=== PATIENT | female | born 1930 | race Caucasian/White ===

== ENCOUNTER → 2016-04-18 | Outpatient (REF) | payer MEDICARE, MEDICAID ==
[~2016-04-18] MED LIST: /AMLO25TA PO; /BISO10TA PO; ACET50TA PO; ALEN70SO PO; AMLO5TAB2 PO; ANTI25TA PO; ASPI1TAB PO; BISO10TA6 PO; CALC600T21 PO; CLAR10CA3 PO; CLAR1TAB2 PO; DIOV160T6 PO; ERGO5000 PO; FOSA70TA PO; GABA100C PO; LASI40TA; LEVA500T PO; LIDO5DIS TOP; LIDO5DIS36 TD; MECL-68 PO; MELO7.5S PO; MELO7.5T3 PO; MELO7.5T6 PO; MULTIVIT PO; NITR PO; NYST10PW TOP; OYST500T76 PO; PANT40TA2 PO; PARO20TA2 PO; PARO30TA PO; PLAV75TA2 PO; POTA10CA2; PRAV40TA; PRIL20CA; SKEL800T5; TYLE650T30 PO; VALS80CA PO; VITA-130 PO; VITA500T PO; VITAMIN D50000 UNT; [UNRECOGNIZED DRUG - CODE] PO
== END ==
LOC: M LAB REF 13:50
PROVIDERS: ATTEND Nurse Practitioner Family
DX: R19.7 Diarrhea, unspecified (principal)

== ENCOUNTER → 2016-05-19 | Outpatient (REF) | payer MEDICARE, MEDICAID ==
[~2016-05-19] MED LIST changes: -ERGO5000 PO; +ERGO500014 PO
== END ==
LOC: M LAB REF 13:30
PROVIDERS: ATTEND Nurse Practitioner Family
DX: R10.9 Unspecified abdominal pain (principal)

== ENCOUNTER → 2016-05-30 | Outpatient (REF) | payer MEDICARE, MEDICAID ==
[2016-06-03 00:06] LABS: ENDOMYSIAL ABY IgA Negative (Negative)
== END ==
LOC: M LAB REF 16:18
PROVIDERS: ATTEND Internal Medicine
DX: R10.9 Unspecified abdominal pain (principal); R19.7 Diarrhea, unspecified

== ENCOUNTER → 2016-09-17 | Outpatient (REF) | payer MEDICARE, MEDICAID ==
[2016-09-17 19:14] LABS: AMYLASE 42 U/L (25-115)
[2016-09-18 10:57] LABS: CONTROL LINE HPYORI INT CTR LINE PRESENT
[2016-09-20 00:06] LABS: ENDOMYSIAL ABY IgA Negative (Negative)
== END ==
LOC: M LAB REF 16:52
PROVIDERS: ATTEND Nurse Practitioner Family
DX: R10.9 Unspecified abdominal pain (principal)

== ENCOUNTER 2016-10-28 22:18 | Inpatient (IN) | payer OTHER, MEDICAID, MEDICARE ==
[~2016-10-28] VITALS: Ht 152.4 cm; Wt 58.4 kg
[~2016-10-28 22:18] MED LIST changes: -CALC600T21 PO; +CALC600T60 PO; +LEVA1TAB2 PO; -LEVA500T PO; -LIDO5DIS36 TD; +LIDO5DIS41 TD; -MELO7.5T6 PO; +MELO7.5T7 PO; -VITA-130 PO
[2016-10-28] MEDS ORDERED: NS 1,000 ML IV SCH (22:29)
[2016-10-28 22:50] LABS: BASO % 0.2 % (0.0-1.0); EOS # 0.1 K/mm3 (0.0-0.50); LARGE UNSTAINED CELL # 0.2 K/mm3 (0.0-0.4); LARGE UNSTAINED CELL % 1.3 % (0.0-4.0); LYMPH # 1.5 K/mm3 (1.5-4.5); LYMPH % 10.6 % (24.0-44.0); MEAN CORPUSCULAR HEMOGLOBIN 29.4 pg (27.0-33.0); MEAN CORPUSCULAR HGB CONC 34.3 g/dl (32.0-36.5); MEAN CORPUSCULAR VOLUME 85.6 fl (80.0-96.0); MONO # 0.5 K/mm3 (0.0-0.8); MONO % 3.9 % (0.0-5.0); NEUTROPHILS # 10.5 K/mm3 (1.8-7.7); PLATELET COUNT, AUTOMATED 249 k/mm3 (150-450); RED CELL DISTRIBUTION WIDTH 13.4 % (11.5-14.5); WHITE BLOOD COUNT 12.6 K/mm3 (4.0-10.0)
[2016-10-28] MEDS ORDERED: LABETALOL HCL 100 MG/20 ML VIAL IV STA (22:50)
[2016-10-28 23:06] LABS: MICROSCOPIC INDICATED? MAN YES (NO)
[2016-10-28 23:13] LABS: MICROSCOPIC EXAM PERFORMED
[2016-10-28 23:14] LABS: RBC, URINE 20-30 /hpf (0-3); WBC, URINE TNTC /hpf (0-3)
[2016-10-28 23:14] LABS: ALBUMIN 3.6 GM/DL (3.2-5.2); ALBUMIN/GLOBULIN RATIO 1.03 (1.00-1.93); ALKALINE PHOSPHATASE 71 U/L (45-117); ALT/SGPT 17 U/L (12-78); ANION GAP 9 MEQ/L (8-16); AST/SGOT 28 U/L (15-37); BILIRUBIN,DIRECT 0.1 MG/DL (0.0-0.2); BILIRUBIN,TOTAL 0.6 MG/DL (0.2-1.0); BLOOD UREA NITROGEN 25 MG/DL (7-18); CALCIUM LEVEL 9.3 MG/DL (8.8-10.2); CARBON DIOXIDE LEVEL 21 MEQ/L (21-32); CHLORIDE LEVEL 106 MEQ/L (98-107); CREATININE FOR GFR 1.26 MG/DL (0.55-1.02); GLOMERULAR FILTRATION RATE 42.8 (>32); GLUCOSE, FASTING 109 MG/DL (83-110); POTASSIUM SERUM 4.5 MEQ/L (3.5-5.1); SODIUM LEVEL 136 MEQ/L (136-145); TOTAL PROTEIN 7.1 GM/DL (6.4-8.2)
[2016-10-28 23:15] LABS: BACTERIA, URINE MOD AMOUNT; HYALINE CAST, URINE NONE SEEN /lpf (0-1); SQUAMOUS EPITHELIAL CELL URINE SMALL AMOUNT /hpf (SMALL AMT)
--- NOTE | 2016-10-28 23:20 | REPUSA ---
CT of the head Clinical history: altered mental status. Comparison: 11/17/2014. Protocol: Multiple axial CT images obtained with 5 mm slice thickness were obtained through the head without administration of contrast. Findings: The ventricles and sulci are symmetric but prominent in size bilaterally. There are periven tricular areas of low attenuation throughout the deep white matter. There is no evidence of acute hem orrhage or infarct. There is no midline shift, mass effect, or extra-axial fluid collection. The osse ous structures are unremarkable. The visualized paranasal sinuses and mastoid air cells are clear. Impression: No acute hemorrhage or infarct. 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
[2016-10-29] MEDS ORDERED: CIPROFLOXACIN 400 MG in APPROPRIATE DILUENT 1 EA IV ONE ×2
[2016-10-29] MEDS ORDERED: ACETAMINOPHEN TAB 650MG DOSE (2X325MG) PO PRN (00:15)
[2016-10-29] MEDS ORDERED: IBUPOTC PO (00:40)
[2016-10-29] MEDS ORDERED: MIRT15TA3 PO (00:40)
[2016-10-29] MEDS ORDERED: TYLE650T35 PO (00:40)
[2016-10-29] MEDS ORDERED: KLOR1CAP2 PO (00:40)
[2016-10-29] MEDS ORDERED: VALS1TAB46 PO (00:40)
[2016-10-29] MEDS ORDERED: BIOT10008 PO (00:40)
[2016-10-29] MEDS ORDERED: ASPI81CH PO (00:40)
[2016-10-29] MEDS ORDERED: CALCTAB68 PO (00:40)
[2016-10-29] MEDS ORDERED: VITMTA PO (00:40)
[2016-10-29 00:55] VITALS: BP 114/77
--- NOTE | 2016-10-29 01:29 | REP ---
Clinical: Altered mental status. Comparison: 11/20/2014. Findings: Opacity at the left lung base suggests infiltrate and/or small effusion. Remainder of lung bull are well-aerated and clear. No pneumothorax. Mediastinum and cardiac silhouette normal. Skeletal structures demonstrate age-related degenerative changes. Impression: Left lower lobe infiltrate and/or effusion. Signed by Nemesio Felder MD 10/29/2016 01:20 A
[2016-10-29] MEDS: NS 1,000 ML IV SCH ×2 (01:53→15:57)
[2016-10-29] MEDS: cefTRIAXone SOD 1 GM in D5W MINI-BAG PLUS 50 ML IV SCH (01:54)
[2016-10-29] MEDS: HEPARIN SOD (PORCINE) 5000 UNITS/ML VIAL SC SCH ×3 (05:13→21:24)
--- NOTE | 2016-10-29 05:31 | HPE ---
DATE OF ADMISSION: 10/29/2016 PRIMARY CARE PROVIDER: Dr. Helga Nava ATTENDING PHYSICIAN: Dr. Andres CHIEF COMPLAINT: Confusion. HISTORY OF PRESENT ILLNESS: The patient is an 86-year-old white female with several medical conditions listed below came to the emergency room (ER) for evaluation of confusion. She is a poor historian. The history is provided by her daughter who is with her in the ER. Per her daughter, 3 weeks ago, she saw her primary care provider and was given Levaquin for a urinary tract infection. She totally took10 days of Levaquin and finished it recently. This evening she was found very confused and the family decided to bring her the hospital for further evaluation. No fever. No chills. No diarrhea or dysuria. In the ER, she had a negative head CT scan. Her urinalysis had increased numerous white blood cells and also her blood tests indicated she has mild leukocytosis. Medicine service called for admission. REVIEW OF SYSTEMS: Denies fever. No chills. No headache. No blurry vision. No shortness of breath. No chest pain. No diarrhea. The family states the patient had some chronic abdominal pain, which is mild and denies any tingling, numbness or weakness in the arms or lower extremities. All other systems reviewed, but negative. PAST MEDICAL HISTORY: 1. Hypertension. 2. Dyslipidemia. 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 4. Depression. 5. Acid reflux. 6. Chronic low back pain. PAST SURGICAL HISTORY: 1. Hysterectomy. 2. Appendectomy. 3. Bilateral knee replacement. 4. Cholecystectomy. ALLERGIES: Allergic to ASPIRIN, DEMEROL, MORPHINE, SOMA, CODEINE, INTRAVENOUS (IV) DYE, KEFLEX, MILK OF MAGNESIA, BACTRIM. FAMILY HISTORY: No family history of carotid disease. No stroke. SOCIAL HISTORY: No alcohol abuse. No tobacco use. No illicit drug abuse. She lives by herself, and she is DO NOT RESUSCITATE, DO NOT INTUBATE. MEDICATIONS: - paroxetine 30 mg by mouth daily - amlodipine 5 mg by mouth daily - Claritin 10 mg by mouth daily - Diovan 160 mg by mouth daily - lidocaine patch every 12 hours PHYSICAL EXAMINATION: VITAL SIGNS: Temperature is 98.7. Heart rate 73. Respiratory rate 18. Blood pressure 155/67. Oxygen saturation is 97% on room air. GENERAL: She is awake, alert, oriented to place and people but not time. HEENT: Atraumatic. Pupils equal round and react to light. No jaundice. Ears, nose and throat normal. Mouth: Mucous moist. LUNGS: Clear. No wheezing. No crackles. HEART: S1, S2. Regular. No murmur. ABDOMEN: Soft. Bowel sounds positive. Mild tenderness but no rebound. LOWER EXTREMITIES: No edema in bilateral lower extremities. SKIN: No rash. NEUROLOGIC: Nonfocal. PSYCHOLOGICAL: No acute psychosis. DIAGNOSTIC AND LABORATORY STUDIES: (Include the following.) CBC with differential: WBC 12.6, hemoglobin and hematocrit 12.2/35.6, and platelets 249, Sodium 136, potassium 4.5, BUN 9, creatinine 1.26, and glucose is 109. UA showed numerous white blood cells. Chest x-ray is unremarkable. Head CT unremarkable. IMPRESSION: 1. Altered mental status likely due to metabolic encephalopathy, which is mild. 2. Urinary tract infection. 3. History of hypertension. 4. History of dyslipidemia. 5. History of chronic low back pain. PLAN: Patient will be admitted to medicine floor. I will treat her with gentle IV hydration plus IV ceftriaxone. We will followup blood cultures and urine cultures. We will continue her most regular home medications. Per the daughter , patient has chronic abdominal pain, which she planned to be referred to see Dr. Cooper for possible colonoscopy as outpatient. We will start her on heparin subcutaneous for deep venous thrombosis (DVT) prophylaxis. MANI
[2016-10-29 06:00] VITALS: BP 175/72
[2016-10-29 07:03] LABS: BASO % 0.1 % (0.0-1.0); EOS % 0.4 % (0.0-3.0); LARGE UNSTAINED CELL # 0.2 K/mm3 (0.0-0.4); LARGE UNSTAINED CELL % 1.7 % (0.0-4.0); LYMPH # 2.3 K/mm3 (1.5-4.5); LYMPH % 20.1 % (24.0-44.0); MEAN CORPUSCULAR HGB CONC 33.7 g/dl (32.0-36.5); MEAN CORPUSCULAR VOLUME 86.1 fl (80.0-96.0); MONO # 0.8 K/mm3 (0.0-0.8); MONO % 7.2 % (0.0-5.0); NEUTROPHILS # 7.5 K/mm3 (1.8-7.7); NEUTROPHILS % 70.6 % (36.0-66.0); PLATELET COUNT, AUTOMATED 220 k/mm3 (150-450); RED CELL DISTRIBUTION WIDTH 13.4 % (11.5-14.5); WHITE BLOOD COUNT 10.6 K/mm3 (4.0-10.0)
[2016-10-29 07:29] LABS: CALCIUM LEVEL 8.6 MG/DL (8.8-10.2); CREATININE FOR GFR 1.01 MG/DL (0.55-1.02); GLOMERULAR FILTRATION RATE 55.2 (>32)
[2016-10-29 07:39] LABS: POTASSIUM SERUM 3.4 MEQ/L (3.5-5.1)
[2016-10-29] MEDS: MULTIVITAMINS/MINERALS THERAP 1 TAB PO SCH (08:43)
[2016-10-29] MEDS: MECLIZINE 25 MG TABLET PO SCH ×2 (08:43→15:57)
[2016-10-29] MEDS: PANTOPRAZOLE 40MG TAB (PROTONIX) PO SCH (08:44)
[2016-10-29] MEDS: BISOPROLOL FUMARATE 10 MG TAB PO SCH (08:44)
[2016-10-29] MEDS: ASPIRIN 81 MG CHEW TABLET PO SCH (08:44)
[2016-10-29] MEDS: ASCORBIC ACID 500 MG TAB PO SCH (08:44)
[2016-10-29] MEDS: VALSARTAN 80 MG TAB (DIOVAN) PO SCH (08:45)
[2016-10-29] MEDS ORDERED: IBUPROFEN 200 MG TAB PO SCH (09:00)
[2016-10-29] MEDS: SUCRALFATE SUSP 1GM/10ML UD PO SCH ×3 (12:11→21:24)
[2016-10-29 14:00] VITALS: BP 125/66
[2016-10-29 16:35] VITALS: BP 152/62
[2016-10-29] MEDS: MIRTAZAPINE 15 MG TAB PO SCH (21:24)
[2016-10-29 22:00] VITALS: BP 145/75
[2016-10-30] MEDS: cefTRIAXone SOD 1 GM in D5W MINI-BAG PLUS 50 ML IV SCH ×2 (00:31→23:49)
[2016-10-30] MEDS: ACETAMINOPHEN 500 MG TAB PO PRN ×3 (00:31→18:20)
[2016-10-30] MEDS: NS 1,000 ML IV SCH (02:53)
[2016-10-30 06:00] VITALS: BP 142/87
[2016-10-30] MEDS: HEPARIN SOD (PORCINE) 5000 UNITS/ML VIAL SC SCH ×3 (06:23→21:04)
[2016-10-30] MEDS: SUCRALFATE SUSP 1GM/10ML UD PO SCH ×4 (08:43→21:04)
[2016-10-30] MEDS: BISOPROLOL FUMARATE 10 MG TAB PO SCH (08:44)
[2016-10-30] MEDS: VALSARTAN 80 MG TAB (DIOVAN) PO SCH (08:44)
[2016-10-30] MEDS: MECLIZINE 25 MG TABLET PO SCH ×2 (08:45→17:50)
[2016-10-30] MEDS: ASPIRIN 81 MG CHEW TABLET PO SCH (08:45)
[2016-10-30] MEDS: ASCORBIC ACID 500 MG TAB PO SCH (08:45)
[2016-10-30] MEDS: PANTOPRAZOLE 40MG TAB (PROTONIX) PO SCH (08:45)
[2016-10-30] MEDS: MULTIVITAMINS/MINERALS THERAP 1 TAB PO SCH (08:45)
[2016-10-30] MEDS ORDERED: POTASSIUM CHLORIDE 10 MEQ SR TABLET PO ONE (10:00)
--- NOTE | 2016-10-30 11:15 | ECGEPIP ---
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
--- NOTE | 2016-10-30 11:40 | IPNPDOC ---
Subjective Date Seen The patient was seen on 10/30/16. Subjective Chief Complaint/HPI The patient is a 86-year-old female admitted with a reason for visit of Urinary Tract Infection. Events since last encounter feeling better, no abdominal pain , no frequency of urination , no fever or chills, no confusion. Objective Physical Examination General Exam: Positive: Alert, Cooperative, No Acute Distress Eye Exam: Positive: PERRLA, Conjunctiva & lids normal, EOMI, Negative: Sclera icteric ENT Exam: Positive: Atraumatic, Mucous membr. moist/pink, Pharynx Normal Neck Exam: Positive: Supple, Negative: JVD, thyromegaly Chest Exam: Positive: Clear to auscultation, Normal air movement Heart Exam: Positive: Rate Normal, Regular Rhythm, Normal S1, Normal S2, Negative: Murmurs, Rubs Abdomen Exam: Positive: Normal bowel sounds, Soft, Negative: Tenderness, Hepatospenomegaly Extremity Exam: Positive: Normal pulses, Negative: Clubbing, Cyanosis, Edema Skin Exam: Positive: Nl turgor and temperature, Negative: Rash, Breakdown Assessment /Plan Problems (1) UTI (urinary tract infection) Status: Acute Problem Text: continue ceftriaxone. (2) Metabolic encephalopathy Status: Acute (3) Hypertension Status: Chronic (4) Hyperlipidemia Status: Chronic (5) Depression Status: Chronic (6) GERD (gastroesophageal reflux disease) Status: Chronic Problem Text: continue pantoprazole and sucralfate. Plan/VTE VTE Prophylaxis Ordered?: Yes VS, I&O, 24H, Fishbone Vital Signs/I&O Vital Signs Date Time Temp Pulse Resp B/P (MAP) Pulse Ox O2 Delivery O2 Flow Rate FiO2 10/30/16 08:44 61 142/87 10/30/16 06:00 97.4 17 95 Room Air I&O- Last 24 Hours up to 6 AM 10/30/16 06:00 Intake Total 1575 ml Output Total 1825 ml Balance -250 ml Laboratory Data Microbiology Microbiology 10/29/16 Stool Occult Blood (LOPEZ) - Final, Complete 10/28/16 Urine Culture, Received Pending JUSTUS CRAIG MD Oct 30, 2016 11:40
[2016-10-30 14:00] VITALS: BP 122/66
[2016-10-30] MEDS: MIRTAZAPINE 15 MG TAB PO SCH (21:04)
[2016-10-30 22:00] VITALS: BP 140/62
[2016-10-31] MEDS: ACETAMINOPHEN 500 MG TAB PO PRN ×2 (04:08→21:20)
[2016-10-31] MEDS: HEPARIN SOD (PORCINE) 5000 UNITS/ML VIAL SC SCH ×3 (05:09→21:21)
[2016-10-31 06:00] VITALS: BP 150/65
[2016-10-31] MEDS ORDERED: VITAMIN D 50,000 UNITS CAPSULE (ERGOCALCIFEROL 1.25MG) PO SCH (09:00)
[2016-10-31] MEDS: SUCRALFATE SUSP 1GM/10ML UD PO SCH ×4 (09:32→21:19)
[2016-10-31] MEDS: ASCORBIC ACID 500 MG TAB PO SCH (09:32)
[2016-10-31] MEDS: BISOPROLOL FUMARATE 10 MG TAB PO SCH (09:32)
[2016-10-31] MEDS: VALSARTAN 80 MG TAB (DIOVAN) PO SCH (09:32)
[2016-10-31] MEDS: PANTOPRAZOLE 40MG TAB (PROTONIX) PO SCH (09:32)
[2016-10-31] MEDS: MECLIZINE 25 MG TABLET PO SCH ×2 (09:32→17:19)
[2016-10-31] MEDS: MULTIVITAMINS/MINERALS THERAP 1 TAB PO SCH (09:33)
[2016-10-31] MEDS: ASPIRIN 81 MG CHEW TABLET PO SCH (09:33)
--- NOTE | 2016-10-31 11:19 | IPNPDOC ---
Subjective Date Seen The patient was seen on 10/31/16. Subjective Chief Complaint/HPI The patient is a 86-year-old female admitted with a reason for visit of Urinary Tract Infection. Events since last encounter feeling well , no further abdominal pain though complaining of some thing hard in the hypogastrium , no frequency of urination , no nausea or vomiting or diarrhea, no chest pain or sob. pateint does says that she is forgetful and will have episodes when she completely blacks out and unable to remember any thing she does not ever recognize her children does not remember her name or her address. Has gotten lost before. Objective Physical Examination General Exam: Positive: Alert, Cooperative, No Acute Distress Eye Exam: Positive: PERRLA, Conjunctiva & lids normal, EOMI, Negative: Sclera icteric ENT Exam: Positive: Atraumatic, Mucous membr. moist/pink, Pharynx Normal Neck Exam: Positive: Supple, Negative: JVD, thyromegaly Chest Exam: Positive: Clear to auscultation, Normal air movement Heart Exam: Positive: Rate Normal, Regular Rhythm, Normal S1, Normal S2, Negative: Murmurs, Rubs Abdomen Exam: Positive: Normal bowel sounds, Soft, Negative: Tenderness, Hepatospenomegaly Extremity Exam: Positive: Normal pulses, Negative: Clubbing, Cyanosis, Edema Skin Exam: Positive: Nl turgor and temperature, Negative: Rash, Breakdown Assessment /Plan Problems (1) UTI (urinary tract infection) Status: Acute Problem Text: continue ceftriaxone. (2) Metabolic encephalopathy Status: Acute (3) Dementia Status: Chronic Response to Treatment: Stable Problem Text: age related. probably got worse with suradded metabolic encephalopathy due to UTI (4) Hypertension Status: Chronic (5) Hyperlipidemia Status: Chronic (6) Depression Status: Chronic (7) GERD (gastroesophageal reflux disease) Status: Chronic Problem Text: continue pantoprazole and sucralfate. Plan/VTE VTE Prophylaxis Ordered?: Yes VS, I&O, 24H, Fishbone Vital Signs/I&O Vital Signs Date Time Temp Pulse Resp B/P (MAP) Pulse Ox O2 Delivery O2 Flow Rate FiO2 10/31/16 09:32 150/65 10/31/16 06:00 96.9 61 19 94 Room Air I&O- Last 24 Hours up to 6 AM 7/28/17 06:00 Intake Total 1970 ml Output Total 0 ml Balance 1970 ml Laboratory Data Microbiology Microbiology 10/29/16 Stool Occult Blood ([facility]OPEZ) - Final, Complete 10/28/16 Urine Culture - Final, Complete Klebsiella Pneumoniae JUSTUS CRAIG MD Oct 31, 2016 11:19
[2016-10-31 12:28] LABS: ANION GAP 7 MEQ/L (8-16); BLOOD UREA NITROGEN 8 MG/DL (7-18); CALCIUM LEVEL 8.8 MG/DL (8.8-10.2); CARBON DIOXIDE LEVEL 27 MEQ/L (21-32); CHLORIDE LEVEL 111 MEQ/L (98-107); CREATININE FOR GFR 0.78 MG/DL (0.55-1.02); GLOMERULAR FILTRATION RATE > 60.0 (>32); GLUCOSE, FASTING 93 MG/DL (83-110); POTASSIUM SERUM 3.5 MEQ/L (3.5-5.1); SODIUM LEVEL 145 MEQ/L (136-145)
[2016-10-31 12:36] LABS: MEAN CORPUSCULAR HEMOGLOBIN 28.7 pg (27.0-33.0); MEAN CORPUSCULAR HGB CONC 33.8 g/dl (32.0-36.5); MEAN CORPUSCULAR VOLUME 84.9 fl (80.0-96.0); RED CELL DISTRIBUTION WIDTH 13.3 % (11.5-14.5); WHITE BLOOD COUNT 7.2 K/mm3 (4.0-10.0)
[2016-10-31 14:00] VITALS: BP 146/78
--- NOTE | 2016-10-31 17:00 | REP ---
ULTRASOUND URINARY BLADDER: Real-time sonographic evaluation of the urinary bladder performed. No mass or calculus is seen. Ureteral jets could not be visualized with Doppler color evaluation. Volume is 333 mL. After voiding, the bladder completely empties with no postvoid residual. IMPRESSION: Essentially normal bladder ultrasound as above. Signed by Jr Mejia MD 11/11/2016 08:36 A
[2016-10-31] MEDS: MIRTAZAPINE 15 MG TAB PO SCH (21:19)
[2016-10-31 22:00] VITALS: BP 140/68
[2016-10-31] MEDS: cefTRIAXone SOD 1 GM in D5W MINI-BAG PLUS 50 ML IV SCH (23:11)
[2016-11-01] MEDS: HEPARIN SOD (PORCINE) 5000 UNITS/ML VIAL SC SCH (05:44)
[2016-11-01 06:00] VITALS: BP 120/76
[2016-11-01] MEDS ORDERED: SUCR10SS PO (07:25)
[2016-11-01] MEDS ORDERED: ACET50TA PO (07:25)
[2016-11-01] MEDS ORDERED: LEVO250T12 PO (07:25)
[2016-11-01 08:35] LABS: FREE T4 1.35 NG/DL (0.76-1.46)
[2016-11-01] MEDS: SUCRALFATE SUSP 1GM/10ML UD PO SCH (10:01)
[2016-11-01 10:03] VITALS: BP 136/64
[2016-11-01] MEDS: BISOPROLOL FUMARATE 10 MG TAB PO SCH (10:03)
[2016-11-01] MEDS: ASCORBIC ACID 500 MG TAB PO SCH (10:04)
[2016-11-01] MEDS: ASPIRIN 81 MG CHEW TABLET PO SCH (10:04)
[2016-11-01] MEDS: MULTIVITAMINS/MINERALS THERAP 1 TAB PO SCH (10:05)
[2016-11-01] MEDS: PANTOPRAZOLE 40MG TAB (PROTONIX) PO SCH (10:05)
[2016-11-01] MEDS: MECLIZINE 25 MG TABLET PO SCH (10:05)
[2016-11-01] MEDS: VALSARTAN 80 MG TAB (DIOVAN) PO SCH (10:06)
--- NOTE | 2016-11-02 22:02 | DSES ---
DATE OF ADMISSION: 10/29/2016 DATE OF DISCHARGE: 11/01/2016 PRIMARY CARE PROVIDER: Dr. Helga Nava DISCHARGE DIAGNOSES: 1. Urinary tract infection with Klebsiella. 2. Acute metabolic encephalopathy, resolved. 3. Dementia. 4. Age-related hypertension. 5. Hyperlipidemia. 6. Depression. 7. Gastroesophageal reflux disease (GERD). 8. Chronic abdominal pain. DISCHARGE MEDICATIONS: - levofloxacin 250 mg by mouth daily - Tylenol 1000 mg by mouth every 12 hours as needed for pain - sucralfate 1 gram by mouth before meals and at bedtime - Fosamax 70 mg by mouth once a week - ascorbic acid 500 mg by mouth daily - aspirin 81 mg by mouth daily - Biotin 1000 mcg by mouth daily - bisoprolol 10 mg by mouth daily - calcium with vitamin D two tablets by mouth daily - ergocalciferol 50,000 units once a week - Klor-Con 20 mEq by mouth at bedtime - meclizine 25 mg by mouth twice a day - mirtazapine 15 mg by mouth at bedtime - multivitamins one tablet daily - pantoprazole 40 mg by mouth daily - valsartan 80 mg by mouth daily HOSPITAL COURSE: This is an 86-year-old female with baseline dementia, age-related who presented to the hospital with increased confusion and abdominal pain. The patient was found to have a urinary tract infection with Klebsiella. The patient was treated with IV ceftriaxone, subsequently changed to oral levofloxacin. Her confusion resolved with treatment of infection. She was seen by physical therapy in the hospital and was cleared for home discharge and previous level of care. At present, the patient's vital signs are stable. Does not have any complaints and she is functioning at baseline. PHYSICAL EXAMINATION: VITAL SIGNS: Temperature 97.6, pulse 74, respiratory rate 20, blood pressure 136/64, pulse oximetry 94% on room air. GENERAL: The patient is awake, alert, and oriented times three, sitting up in bed in no acute distress. HEENT: Normocephalic, atraumatic. Moist mucous membranes. Anicteric eyes. CHEST: Clear to auscultation. CARDIOVASCULAR: S1, S2, regular. No rub, murmur or gallop. ABDOMEN: Soft, nontender. Bowel sounds present. EXTREMITIES: No edema. LABORATORY DATA: WBC 7.2, hemoglobin 11, platelets 242. Sodium 145, potassium 3.5, chloride 111, bicarbonate 27, BUN 8, creatinine 0.78, calcium 8.8, glucose 93, TSH 0.42, free T4 1.35. Ultrasound of the bladder did not show any postvoid residual. Head CT showed age-related atrophy and chronic small vessel ischemic disease. DISPOSITION: The patient is discharged home in stable condition. DISCHARGE INSTRUCTIONS: The patient is to followup with primary care provider in one week. Regular diet. Activity as tolerated.
== END 2016-11-01 10:20 | disposition home or self-care (01) | DRG 689 ==
LOC: M ED 22:18 → EDBD 22:18 → M ED INP 10-29 00:13 → M MS4PR 10-29 00:53 → M MSPAV 10-29 16:31
PROVIDERS: ADMIT Hospitalist; ATTEND Internal Medicine Nephrology
DX: N39.0 Urinary tract infection, site not specified (principal); G93.41 Metabolic encephalopathy; B96.1 Klebsiella pneumoniae [K. pneumoniae] as the cause of diseases classified elsewhere; I10 Essential (primary) hypertension; E78.5 Hyperlipidemia, unspecified; F32.9 Major depressive disorder, single episode, unspecified; K21.9 Gastro-esophageal reflux disease without esophagitis; M54.5 Low back pain; R10.9 Unspecified abdominal pain; Z86.73 Personal history of transient ischemic attack (TIA), and cerebral infarction without residual deficits; Z96.653 Presence of artificial knee joint, bilateral; Z88.5 Allergy status to narcotic agent; Z88.6 Allergy status to analgesic agent; Z88.8 Allergy status to other drugs, medicaments and biological substances; Z88.1 Allergy status to other antibiotic agents; Z91.041 Radiographic dye allergy status; Z79.899 Other long term (current) drug therapy

== ENCOUNTER → 2017-03-16 | Outpatient (REF) | payer OTHER, MEDICAID ==
[~2017-03-16] MED LIST changes: +ASPI81CH PO; +BIOT10008 PO; +CALCTAB68 PO; +IBUPOTC PO; +KLOR1CAP2 PO; +LEVO250T12 PO; +MIRT15TA3 PO; +SUCR10SS PO; +TYLE650T35 PO; +VALS1TAB46 PO; +VITMTA PO
[2017-03-16 20:00] LABS: VITAMIN B12 LEVEL 1457 PG/ML
[2017-03-16 20:01] LABS: FOLATE > 24.0 NG/ML
== END ==
LOC: M LAB REF 18:58
PROVIDERS: ATTEND Nurse Practitioner Family
DX: G30.1 Alzheimer's disease with late onset (principal)

== ENCOUNTER 2017-06-16 10:03 | Inpatient (IN) | payer OTHER, MEDICAID ==
[2017-06-16] MEDS: ASPIRIN 81 MG CHEW TABLET PO (09:00)
[2017-06-16] MEDS: PANTOPRAZOLE 40MG TAB (PROTONIX) PO (09:00)
[2017-06-16] MEDS: BISOPROLOL FUMARATE 10 MG TAB PO (09:00)
[2017-06-16] MEDS: NS 1,000 ML IV ×2 (10:33→22:26)
[2017-06-16] MEDS: ACETAMINOPHEN 325 MG TAB PO (11:30)
[2017-06-16 11:35] LABS: BASO % 0.1 % (0.0-1.0); EOS % 0.1 % (0.0-3.0); HEMATOCRIT 35.9 % (36.0-47.0); IMMATURE GRANULOCYTE % 0.5 % (0-3.0); LYMPH # 1.2 10^3/uL (1.5-4.5); LYMPH % 8.4 % (24.0-44.0); MEAN CORPUSCULAR HEMOGLOBIN 28.6 pg (27.0-33.0); MEAN CORPUSCULAR HGB CONC 33.4 g/dl (32.0-36.5); MEAN CORPUSCULAR VOLUME 85.5 fl (80.0-96.0); MONO # 1.5 10^3/uL (0.0-0.8); MONO % 10.2 % (0.0-5.0); NEUTROPHILS # 11.8 10^3/uL (1.8-7.7); NEUTROPHILS % 80.7 % (36.0-66.0); PLATELET COUNT, AUTOMATED 223 10^3/uL (150-450); RED CELL DISTRIBUTION WIDTH 13.1 % (11.5-14.5); WHITE BLOOD COUNT 14.6 10^3/uL (4.0-10.0)
[2017-06-16 11:51] LABS: AMMONIA 22 uMOL/L (<32)
[2017-06-16 12:31] LABS: ACETAMINOPHEN LEVEL < 2.0 UG/ML (10.0-30.0); ALBUMIN 3.4 GM/DL (3.2-5.2); ALBUMIN/GLOBULIN RATIO 1.03 (1.00-1.93); ALKALINE PHOSPHATASE 64 U/L (45-117); ALT/SGPT 30 U/L (12-78); ANION GAP 10 MEQ/L (8-16); AST/SGOT 44 U/L (7-37); BILIRUBIN,DIRECT 0.2 MG/DL (0.0-0.2); BILIRUBIN,TOTAL 0.8 MG/DL (0.2-1.0); BLOOD UREA NITROGEN 28 MG/DL (7-18); CALCIUM LEVEL 8.9 MG/DL (8.8-10.2); CARBON DIOXIDE LEVEL 27 MEQ/L (21-32); CHLORIDE LEVEL 104 MEQ/L (98-107); CPK CREATINE PHOSPHOKINASE 60 U/L (26-192); CREATININE FOR GFR 1.99 MG/DL (0.55-1.30); GLOMERULAR FILTRATION RATE 25.2 (>32); GLUCOSE, FASTING 99 MG/DL (70-100); MB/CK RELATIVE INDEX 1.66 (< OR =4); SALICYLATE LEVEL < 1.7 MG/DL (5.0-30.0); SODIUM LEVEL 141 MEQ/L (136-145); THYROID STIMULATING HORMONE 0.549 uIU/ML (0.358-3.740); TOTAL PROTEIN 6.7 GM/DL (6.4-8.2); TROPONIN I < 0.02 NG/ML (< 0.10)
[2017-06-16 12:33] LABS: ETHYL ALCOHOL (ETHANOL) < 0.003 % (0.000-0.010)
[2017-06-16 12:53] LABS: APPEARANCE, URINE HAZY (CLEAR); BACTERIA, URINE AUTO 1+ (NEGATIVE); BILIRUBIN, URINE AUTO NEGATIVE (NEGATIVE); BLOOD, URINE BLOOD NEGATIVE (NEGATIVE); COLOR, URINE YELLOW (YELLOW); GLUCOSE, URINE (UA) AUTO NEGATIVE (NEGATIVE); KETONE, URINE AUTO NEGATIVE (NEGATIVE); LEUKOCYTE ESTERASE, URINE AUTO 3+ (NEGATIVE); MUCUS, URINE SMALL (NEGATIVE); NITRITE, URINE AUTO NEGATIVE (NEGATIVE); PROTEIN, URINE AUTO NEGATIVE (NEGATIVE); RBC, URINE AUTO 2 /HPF (0-3); SPECIFIC GRAVITY URINE AUTO 1.014 (1.002-1.035); SQUAMOUS EPITHELIAL CELL UR AU 1 /HPF (0-6); UROBILINOGEN, URINE AUTO 0.2 mg/dL (0.0-2.0); WBC, URINE AUTO 36 /HPF (0-3)
[2017-06-16 12:55] LABS: AMPHETAMINES LEVEL URINE NEGATIVE (NEGATIVE); BARBITURATES URINE NEGATIVE (NEGATIVE); BENZODIAZEPINES URINE NEGATIVE (NEGATIVE); CANNABINOIDS URINE NEGATIVE (NEGATIVE); COCAINE METABOLITE URINE NEGATIVE (NEGATIVE); METHADONE URINE NEGATIVE (NEGATIVE); OPIATES URINE NEGATIVE (NEGATIVE); PHENCYCLIDINE URINE NEGATIVE (NEGATIVE)
[2017-06-16] MEDS: NS 500 ML IV (13:00)
[2017-06-16] MEDS: LevoFLOXacin IV 500 MG in APPROPRIATE DILUENT 1 EA IV (14:29)
[2017-06-16] MEDS: SUCRALFATE SUSP 1GM/10ML UD PO ×2 (17:30→22:26)
[2017-06-16] MEDS: DONEPEZIL 5 MG TAB PO (22:26)
[2017-06-16] MEDS: MIRTAZAPINE 15 MG TAB PO (22:26)
[2017-06-17 06:59] LABS: BASO % 0.2 % (0.0-1.0); EOS % 0.2 % (0.0-3.0); HEMOGLOBIN 10.5 g/dl (12.0-16.0); IMMATURE GRANULOCYTE % 0.7 % (0-3.0); LYMPH # 1.7 10^3/uL (1.5-4.5); LYMPH % 13.4 % (24.0-44.0); MEAN CORPUSCULAR HGB CONC 33.9 g/dl (32.0-36.5); MEAN CORPUSCULAR VOLUME 85.6 fl (80.0-96.0); MONO # 1.2 10^3/uL (0.0-0.8); MONO % 9.3 % (0.0-5.0); NEUTROPHILS # 9.5 10^3/uL (1.8-7.7); NEUTROPHILS % 76.2 % (36.0-66.0); PLATELET COUNT, AUTOMATED 179 10^3/uL (150-450); RED BLOOD COUNT 3.62 10^6/uL (4.00-5.40); RED CELL DISTRIBUTION WIDTH 12.8 % (11.5-14.5); WHITE BLOOD COUNT 12.4 10^3/uL (4.0-10.0)
[2017-06-17 07:26] LABS: ALBUMIN 2.7 GM/DL (3.2-5.2); ALBUMIN/GLOBULIN RATIO 0.73 (1.00-1.93); ALKALINE PHOSPHATASE 62 U/L (45-117); ALT/SGPT 24 U/L (12-78); ANION GAP 9 MEQ/L (8-16); AST/SGOT 34 U/L (7-37); BILIRUBIN,TOTAL 0.7 MG/DL (0.2-1.0); BLOOD UREA NITROGEN 22 MG/DL (7-18); CALCIUM LEVEL 8.4 MG/DL (8.8-10.2); CARBON DIOXIDE LEVEL 24 MEQ/L (21-32); CHLORIDE LEVEL 107 MEQ/L (98-107); CREATININE FOR GFR 1.12 MG/DL (0.55-1.30); GLUCOSE, FASTING 88 MG/DL (70-100); MAGNESIUM LEVEL 1.8 MG/DL (1.8-2.4); POTASSIUM SERUM 3.4 MEQ/L (3.5-5.1); SODIUM LEVEL 140 MEQ/L (136-145); TOTAL PROTEIN 6.4 GM/DL (6.4-8.2)
[2017-06-17] MEDS: BISOPROLOL FUMARATE 10 MG TAB PO (08:43)
[2017-06-17] MEDS: SUCRALFATE SUSP 1GM/10ML UD PO ×4 (08:43→20:19)
[2017-06-17] MEDS: ASPIRIN 81 MG CHEW TABLET PO (08:43)
[2017-06-17] MEDS: PANTOPRAZOLE 40MG TAB (PROTONIX) PO (08:43)
[2017-06-17] MEDS: ACETAMINOPHEN TAB 650MG DOSE (2X325MG) PO (08:45)
[2017-06-17] MEDS: PERCOCET 5MG/325MG TAB PO ×2 (12:21→20:20)
[2017-06-17] MEDS: LevoFLOXacin IV 250 MG in APPROPRIATE DILUENT 1 EA IV (14:04)
[2017-06-17] MEDS: DONEPEZIL 5 MG TAB PO (20:19)
[2017-06-17] MEDS: MIRTAZAPINE 15 MG TAB PO (20:19)
[2017-06-18 06:06] LABS: BASO % 0.2 % (0.0-1.0); EOS # 0.1 10^3/uL (0.0-0.50); EOS % 0.7 % (0.0-3.0); HEMATOCRIT 30.5 % (36.0-47.0); HEMOGLOBIN 10.3 g/dl (12.0-16.0); IMMATURE GRANULOCYTE % 0.4 % (0-3.0); LYMPH # 1.8 10^3/uL (1.5-4.5); LYMPH % 17.8 % (24.0-44.0); MEAN CORPUSCULAR HEMOGLOBIN 28.9 pg (27.0-33.0); MEAN CORPUSCULAR HGB CONC 33.8 g/dl (32.0-36.5); MEAN CORPUSCULAR VOLUME 85.4 fl (80.0-96.0); MONO # 0.9 10^3/uL (0.0-0.8); MONO % 9.1 % (0.0-5.0); NEUTROPHILS # 7.2 10^3/uL (1.8-7.7); NEUTROPHILS % 71.8 % (36.0-66.0); PLATELET COUNT, AUTOMATED 194 10^3/uL (150-450); RED BLOOD COUNT 3.57 10^6/uL (4.00-5.40); RED CELL DISTRIBUTION WIDTH 12.9 % (11.5-14.5)
[2017-06-18 06:33] LABS: ALBUMIN 2.7 GM/DL (3.2-5.2); ALBUMIN/GLOBULIN RATIO 0.87 (1.00-1.93); ALKALINE PHOSPHATASE 66 U/L (45-117); ALT/SGPT 24 U/L (12-78); ANION GAP 7 MEQ/L (8-16); AST/SGOT 29 U/L (7-37); BILIRUBIN,TOTAL 0.5 MG/DL (0.2-1.0); BLOOD UREA NITROGEN 19 MG/DL (7-18); CALCIUM LEVEL 8.2 MG/DL (8.8-10.2); CARBON DIOXIDE LEVEL 27 MEQ/L (21-32); CHLORIDE LEVEL 109 MEQ/L (98-107); CREATININE FOR GFR 0.92 MG/DL (0.55-1.30); GLOMERULAR FILTRATION RATE > 60.0 (>32); GLUCOSE, FASTING 99 MG/DL (70-100); MAGNESIUM LEVEL 1.6 MG/DL (1.8-2.4); POTASSIUM SERUM 3.4 MEQ/L (3.5-5.1); SODIUM LEVEL 143 MEQ/L (136-145); TOTAL PROTEIN 5.8 GM/DL (6.4-8.2)
[2017-06-18] MEDS: PANTOPRAZOLE 40MG TAB (PROTONIX) PO (08:22)
[2017-06-18] MEDS: ACETAMINOPHEN TAB 650MG DOSE (2X325MG) PO (08:23)
[2017-06-18] MEDS: SUCRALFATE SUSP 1GM/10ML UD PO ×4 (08:23→21:07)
[2017-06-18] MEDS: ASPIRIN 81 MG CHEW TABLET PO (08:23)
[2017-06-18] MEDS: BISOPROLOL FUMARATE 10 MG TAB PO (08:23)
[2017-06-18] MEDS: LevoFLOXacin IV 250 MG in APPROPRIATE DILUENT 1 EA IV (14:50)
[2017-06-18] MEDS: MIRTAZAPINE 15 MG TAB PO (21:07)
[2017-06-18] MEDS: DONEPEZIL 5 MG TAB PO (21:07)
[2017-06-18] MEDS: PERCOCET 5MG/325MG TAB PO (21:07)
[2017-06-19 07:06] LABS: BASO % 0.3 % (0.0-1.0); EOS # 0.1 10^3/uL (0.0-0.50); HEMATOCRIT 32.3 % (36.0-47.0); HEMOGLOBIN 10.8 g/dl (12.0-16.0); IMMATURE GRANULOCYTE % 0.2 % (0-3.0); LYMPH # 2.4 10^3/uL (1.5-4.5); LYMPH % 24.4 % (24.0-44.0); MEAN CORPUSCULAR HEMOGLOBIN 28.1 pg (27.0-33.0); MEAN CORPUSCULAR HGB CONC 33.4 g/dl (32.0-36.5); MEAN CORPUSCULAR VOLUME 83.9 fl (80.0-96.0); MONO # 0.9 10^3/uL (0.0-0.8); MONO % 9.5 % (0.0-5.0); NEUTROPHILS # 6.3 10^3/uL (1.8-7.7); NEUTROPHILS % 64.6 % (36.0-66.0); PLATELET COUNT, AUTOMATED 260 10^3/uL (150-450); RED BLOOD COUNT 3.85 10^6/uL (4.00-5.40); RED CELL DISTRIBUTION WIDTH 12.9 % (11.5-14.5); WHITE BLOOD COUNT 9.7 10^3/uL (4.0-10.0)
[2017-06-19 07:28] LABS: ALBUMIN 2.9 GM/DL (3.2-5.2); ALBUMIN/GLOBULIN RATIO 0.69 (1.00-1.93); ALKALINE PHOSPHATASE 70 U/L (45-117); ALT/SGPT 27 U/L (12-78); ANION GAP 10 MEQ/L (8-16); AST/SGOT 30 U/L (7-37); BILIRUBIN,TOTAL 0.5 MG/DL (0.2-1.0); BLOOD UREA NITROGEN 14 MG/DL (7-18); CALCIUM LEVEL 8.5 MG/DL (8.8-10.2); CARBON DIOXIDE LEVEL 25 MEQ/L (21-32); CHLORIDE LEVEL 106 MEQ/L (98-107); CREATININE FOR GFR 0.96 MG/DL (0.55-1.30); GLOMERULAR FILTRATION RATE 58.5 (>32); GLUCOSE, FASTING 99 MG/DL (70-100); MAGNESIUM LEVEL 1.7 MG/DL (1.8-2.4); POTASSIUM SERUM 3.2 MEQ/L (3.5-5.1); SODIUM LEVEL 141 MEQ/L (136-145); TOTAL PROTEIN 7.1 GM/DL (6.4-8.2)
[2017-06-19] MEDS: SUCRALFATE SUSP 1GM/10ML UD PO ×4 (07:30→21:36)
[2017-06-19] MEDS ORDERED: E-Z-HD 98% w/w 340GM SUSP BTL As Ordered (08:14)
[2017-06-19] MEDS ORDERED: E-Z-GAS II EFFERVESCENT PACKET (SODIUM BICARB./CITRIC ACID/SIMETHICONE) As Ordered (08:14)
[2017-06-19] MEDS ORDERED: E-Z-PAQUE 96% w/w SUSP 176GM BTL As Ordered ×2 (08:14→08:28)
[2017-06-19] MEDS: PANTOPRAZOLE 40MG TAB (PROTONIX) PO (11:03)
[2017-06-19] MEDS: ASPIRIN 81 MG CHEW TABLET PO (11:03)
[2017-06-19] MEDS: BISOPROLOL FUMARATE 10 MG TAB PO (11:03)
[2017-06-19] MEDS: traMADol 50 MG TAB PO ×2 (13:35→21:37)
[2017-06-19] MEDS: LevoFLOXacin IV 250 MG in APPROPRIATE DILUENT 1 EA IV (13:37)
[2017-06-19] MEDS: POTASSIUM CHLORIDE 10 MEQ SR TABLET PO (13:37)
[2017-06-19] MEDS: VALSARTAN 80 MG TAB (DIOVAN) PO (13:41)
[2017-06-19] MEDS: MIRTAZAPINE 15 MG TAB PO (21:37)
[2017-06-19] MEDS: DONEPEZIL 5 MG TAB PO (21:37)
[2017-06-20 06:41] LABS: BASO % 0.2 % (0.0-1.0); EOS # 0.1 10^3/uL (0.0-0.50); EOS % 0.7 % (0.0-3.0); HEMATOCRIT 30.6 % (36.0-47.0); HEMOGLOBIN 10.5 g/dl (12.0-16.0); IMMATURE GRANULOCYTE % 0.2 % (0-3.0); LYMPH # 1.9 10^3/uL (1.5-4.5); LYMPH % 21.6 % (24.0-44.0); MEAN CORPUSCULAR HEMOGLOBIN 28.9 pg (27.0-33.0); MEAN CORPUSCULAR HGB CONC 34.3 g/dl (32.0-36.5); MEAN CORPUSCULAR VOLUME 84.3 fl (80.0-96.0); MONO # 1.2 10^3/uL (0.0-0.8); MONO % 13.4 % (0.0-5.0); NEUTROPHILS # 5.5 10^3/uL (1.8-7.7); NEUTROPHILS % 63.9 % (36.0-66.0); PLATELET COUNT, AUTOMATED 240 10^3/uL (150-450); RED BLOOD COUNT 3.63 10^6/uL (4.00-5.40); RED CELL DISTRIBUTION WIDTH 12.8 % (11.5-14.5); WHITE BLOOD COUNT 8.7 10^3/uL (4.0-10.0)
[2017-06-20 06:59] LABS: ALBUMIN 2.7 GM/DL (3.2-5.2); ALBUMIN/GLOBULIN RATIO 0.66 (1.00-1.93); ALKALINE PHOSPHATASE 72 U/L (45-117); ALT/SGPT 24 U/L (12-78); ANION GAP 8 MEQ/L (8-16); AST/SGOT 24 U/L (7-37); BILIRUBIN,TOTAL 0.6 MG/DL (0.2-1.0); BLOOD UREA NITROGEN 11 MG/DL (7-18); CALCIUM LEVEL 8.7 MG/DL (8.8-10.2); CARBON DIOXIDE LEVEL 27 MEQ/L (21-32); CHLORIDE LEVEL 104 MEQ/L (98-107); CREATININE FOR GFR 0.76 MG/DL (0.55-1.30); GLOMERULAR FILTRATION RATE > 60.0 (>32); GLUCOSE, FASTING 92 MG/DL (70-100); MAGNESIUM LEVEL 1.8 MG/DL (1.8-2.4); POTASSIUM SERUM 3.5 MEQ/L (3.5-5.1); SODIUM LEVEL 139 MEQ/L (136-145); TOTAL PROTEIN 6.8 GM/DL (6.4-8.2)
[2017-06-20] MEDS: SUCRALFATE SUSP 1GM/10ML UD PO ×4 (08:17→21:32)
[2017-06-20] MEDS: ASPIRIN 81 MG CHEW TABLET PO (08:18)
[2017-06-20] MEDS: BISOPROLOL FUMARATE 10 MG TAB PO (08:18)
[2017-06-20] MEDS: PANTOPRAZOLE 40MG TAB (PROTONIX) PO (08:18)
[2017-06-20] MEDS: VALSARTAN 80 MG TAB (DIOVAN) PO (08:19)
[2017-06-20] MEDS ORDERED: traMADol ER 100MG TABLET (ULTRAM ER) PO (09:00)
[2017-06-20] MEDS: traMADol 50 MG TAB PO ×2 (09:41→19:43)
[2017-06-20] MEDS: ONDANSETRON 4 MG TAB (S0181) PO (12:49)
[2017-06-20] MEDS: LevoFLOXacin IV 250 MG in APPROPRIATE DILUENT 1 EA IV (14:57)
[2017-06-20] MEDS: DONEPEZIL 5 MG TAB PO (21:32)
[2017-06-20] MEDS: MIRTAZAPINE 15 MG TAB PO (21:32)
[2017-06-21 06:33] LABS: BASO % 0.2 % (0.0-1.0); HEMATOCRIT 31.4 % (36.0-47.0); HEMOGLOBIN 10.5 g/dl (12.0-16.0); IMMATURE GRANULOCYTE % 0.6 % (0-3.0); LYMPH # 1.1 10^3/uL (1.5-4.5); LYMPH % 9.3 % (24.0-44.0); MEAN CORPUSCULAR HEMOGLOBIN 28.3 pg (27.0-33.0); MEAN CORPUSCULAR HGB CONC 33.4 g/dl (32.0-36.5); MEAN CORPUSCULAR VOLUME 84.6 fl (80.0-96.0); MONO # 1.8 10^3/uL (0.0-0.8); NEUTROPHILS # 9.2 10^3/uL (1.8-7.7); NEUTROPHILS % 74.9 % (36.0-66.0); PLATELET COUNT, AUTOMATED 271 10^3/uL (150-450); RED BLOOD COUNT 3.71 10^6/uL (4.00-5.40); RED CELL DISTRIBUTION WIDTH 12.6 % (11.5-14.5); WHITE BLOOD COUNT 12.2 10^3/uL (4.0-10.0)
[2017-06-21 06:52] LABS: ALBUMIN 2.6 GM/DL (3.2-5.2); ALBUMIN/GLOBULIN RATIO 0.58 (1.00-1.93); ALKALINE PHOSPHATASE 104 U/L (45-117); ALT/SGPT 50 U/L (12-78); ANION GAP 9 MEQ/L (8-16); AST/SGOT 74 U/L (7-37); BILIRUBIN,TOTAL 0.7 MG/DL (0.2-1.0); BLOOD UREA NITROGEN 15 MG/DL (7-18); CALCIUM LEVEL 8.9 MG/DL (8.8-10.2); CARBON DIOXIDE LEVEL 27 MEQ/L (21-32); CHLORIDE LEVEL 103 MEQ/L (98-107); CREATININE FOR GFR 0.92 MG/DL (0.55-1.30); GLOMERULAR FILTRATION RATE > 60.0 (>32); GLUCOSE, FASTING 144 MG/DL (70-100); MAGNESIUM LEVEL 1.8 MG/DL (1.8-2.4); POTASSIUM SERUM 3.6 MEQ/L (3.5-5.1); SODIUM LEVEL 139 MEQ/L (136-145); TOTAL PROTEIN 7.1 GM/DL (6.4-8.2)
[2017-06-21] MEDS: BISOPROLOL FUMARATE 10 MG TAB PO (08:14)
[2017-06-21] MEDS: VALSARTAN 80 MG TAB (DIOVAN) PO (08:15)
[2017-06-21] MEDS: PANTOPRAZOLE 40MG TAB (PROTONIX) PO (08:15)
[2017-06-21] MEDS: ASPIRIN 81 MG CHEW TABLET PO (08:15)
[2017-06-21] MEDS: SUCRALFATE SUSP 1GM/10ML UD PO ×4 (08:15→20:16)
[2017-06-21] MEDS: ANALGESIC BALM CRM 120 GM TOP ×2 (10:50→20:16)
[2017-06-21] MEDS: traMADol 50 MG TAB PO (16:10)
[2017-06-21] MEDS: CEFTRIAXONE SOD 1 GM in APPROPRIATE DILUENT 1 EA IV (16:11)
[2017-06-21] MEDS: ACETAMINOPHEN TAB 650MG DOSE (2X325MG) PO (20:15)
[2017-06-21] MEDS: MIRTAZAPINE 15 MG TAB PO (20:15)
[2017-06-21] MEDS: DONEPEZIL 5 MG TAB PO (20:16)
[2017-06-22] MEDS: ACETAMINOPHEN TAB 650MG DOSE (2X325MG) PO (03:24)
[2017-06-22 06:49] LABS: HEMATOCRIT 30.3 % (36.0-47.0); HEMOGLOBIN 10.3 g/dl (12.0-16.0); MEAN CORPUSCULAR VOLUME 85.4 fl (80.0-96.0); PLATELET COUNT, AUTOMATED 281 10^3/uL (150-450); RED BLOOD COUNT 3.55 10^6/uL (4.00-5.40); RED CELL DISTRIBUTION WIDTH 12.8 % (11.5-14.5); WHITE BLOOD COUNT 17.6 10^3/uL (4.0-10.0)
[2017-06-22 07:14] LABS: ALBUMIN 2.4 GM/DL (3.2-5.2); ALKALINE PHOSPHATASE 105 U/L (45-117); ALT/SGPT 55 U/L (12-78); ANION GAP 9 MEQ/L (8-16); AST/SGOT 48 U/L (7-37); BILIRUBIN,TOTAL 0.6 MG/DL (0.2-1.0); BLOOD UREA NITROGEN 26 MG/DL (7-18); CALCIUM LEVEL 9.3 MG/DL (8.8-10.2); CARBON DIOXIDE LEVEL 30 MEQ/L (21-32); CHLORIDE LEVEL 103 MEQ/L (98-107); CREATININE FOR GFR 1.06 MG/DL (0.55-1.30); GLOMERULAR FILTRATION RATE 52.2 (>32); GLUCOSE, FASTING 136 MG/DL (70-100); MAGNESIUM LEVEL 2.3 MG/DL (1.8-2.4); POTASSIUM SERUM 3.4 MEQ/L (3.5-5.1); SODIUM LEVEL 142 MEQ/L (136-145); TOTAL PROTEIN 7.2 GM/DL (6.4-8.2)
[2017-06-22 07:30] LABS: POSITIVE DIFF POS FLAG
[2017-06-22 07:31] LABS: ADD MANUAL DIFFER YES; DIFF SLIDE NUMBER 22
[2017-06-22 07:37] LABS: ATYPICAL LYMPH 2 % (0-5); LYMPHOCYTES 15 % (16-52); MONOCYTES 8 % (0-8); NEUTROPHILS 75 % (35-75)
[2017-06-22 07:39] LABS: PLATELET ESTIMATE NORMAL (NORMAL)
[2017-06-22] MEDS: BISOPROLOL FUMARATE 10 MG TAB PO (08:49)
[2017-06-22] MEDS: ASPIRIN 81 MG CHEW TABLET PO (08:49)
[2017-06-22] MEDS: PANTOPRAZOLE 40MG TAB (PROTONIX) PO (08:49)
[2017-06-22] MEDS: VALSARTAN 80 MG TAB (DIOVAN) PO (08:49)
[2017-06-22] MEDS: SUCRALFATE SUSP 1GM/10ML UD PO ×4 (08:49→20:41)
[2017-06-22] MEDS: IBUPROFEN 400 MG TAB PO ×2 (08:49→20:42)
[2017-06-22] MEDS: ANALGESIC BALM CRM 120 GM TOP ×2 (16:25→20:42)
[2017-06-22] MEDS: CEFTRIAXONE SOD 1 GM in APPROPRIATE DILUENT 1 EA IV (16:26)
[2017-06-22] MEDS: MIRTAZAPINE 15 MG TAB PO (20:41)
[2017-06-22] MEDS: DONEPEZIL 5 MG TAB PO (20:42)
[2017-06-23] MEDS: **hydrALAZINE** 10 MG TAB PO ×3 (06:00→20:21)
[2017-06-23 06:51] LABS: BASO % 0.3 % (0.0-1.0); EOS # 0.1 10^3/uL (0.0-0.50); EOS % 0.9 % (0.0-3.0); HEMATOCRIT 31.6 % (36.0-47.0); HEMOGLOBIN 10.4 g/dl (12.0-16.0); IMMATURE GRANULOCYTE % 0.7 % (0-3.0); LYMPH # 1.5 10^3/uL (1.5-4.5); LYMPH % 12.4 % (24.0-44.0); MEAN CORPUSCULAR HEMOGLOBIN 28.4 pg (27.0-33.0); MEAN CORPUSCULAR HGB CONC 32.9 g/dl (32.0-36.5); MEAN CORPUSCULAR VOLUME 86.3 fl (80.0-96.0); MONO # 1.1 10^3/uL (0.0-0.8); MONO % 9.3 % (0.0-5.0); NEUTROPHILS # 9.2 10^3/uL (1.8-7.7); NEUTROPHILS % 76.4 % (36.0-66.0); PLATELET COUNT, AUTOMATED 329 10^3/uL (150-450); RED BLOOD COUNT 3.66 10^6/uL (4.00-5.40); RED CELL DISTRIBUTION WIDTH 13.1 % (11.5-14.5)
[2017-06-23 07:12] LABS: ALBUMIN 2.2 GM/DL (3.2-5.2); ALBUMIN/GLOBULIN RATIO 0.47 (1.00-1.93); ALKALINE PHOSPHATASE 97 U/L (45-117); ALT/SGPT 37 U/L (12-78); ANION GAP 8 MEQ/L (8-16); AST/SGOT 29 U/L (7-37); BILIRUBIN,TOTAL 0.3 MG/DL (0.2-1.0); BLOOD UREA NITROGEN 39 MG/DL (7-18); CALCIUM LEVEL 9.3 MG/DL (8.8-10.2); CARBON DIOXIDE LEVEL 27 MEQ/L (21-32); CHLORIDE LEVEL 106 MEQ/L (98-107); CREATININE FOR GFR 1.37 MG/DL (0.55-1.30); GLOMERULAR FILTRATION RATE 38.8 (>32); GLUCOSE, FASTING 97 MG/DL (70-100); MAGNESIUM LEVEL 2.3 MG/DL (1.8-2.4); POTASSIUM SERUM 3.3 MEQ/L (3.5-5.1); SODIUM LEVEL 141 MEQ/L (136-145); TOTAL PROTEIN 6.9 GM/DL (6.4-8.2)
[2017-06-23] MEDS: IBUPROFEN 400 MG TAB PO (08:10)
[2017-06-23] MEDS: SUCRALFATE SUSP 1GM/10ML UD PO ×4 (08:10→20:20)
[2017-06-23] MEDS: BISOPROLOL FUMARATE 10 MG TAB PO (08:10)
[2017-06-23] MEDS: PANTOPRAZOLE 40MG TAB (PROTONIX) PO (08:10)
[2017-06-23] MEDS: VALSARTAN 80 MG TAB (DIOVAN) PO (08:11)
[2017-06-23] MEDS: ASPIRIN 81 MG CHEW TABLET PO (08:11)
[2017-06-23 10:10] LABS: AMORPHOUS SEDIMENT RFX SMALL (NEGATIVE); KETONE, URINE AUTO RFX NEGATIVE (NEGATIVE); MUCUS, URINE RFX SMALL (NEGATIVE); NITRITE, URINE AUTO RFX NEGATIVE (NEGATIVE); RBC, URINE AUTO RFX 2 /HPF (0-3); SQUAM EPITHELIAL CELL UR AURFX 1 /HPF (0-6)
[2017-06-23 10:11] LABS: LEUKOCYTE ESTERASE UR AUTO RFX 1+ (NEGATIVE); WBC, URINE AUTO RFX 12 /HPF (0-3)
[2017-06-23] MEDS: POTASSIUM CHLORIDE 10 MEQ SR TABLET PO (10:36)
[2017-06-23] MEDS: amLODIPine 5 MG TAB PO (10:37)
[2017-06-23] MEDS: NS 1,000 ML IV (10:38)
[2017-06-23] MEDS: CEFTRIAXONE SOD 1 GM in APPROPRIATE DILUENT 1 EA IV (15:46)
[2017-06-23] MEDS: ANALGESIC BALM CRM 120 GM TOP (15:48)
[2017-06-23] MEDS: ACETAMINOPHEN TAB 650MG DOSE (2X325MG) PO (20:20)
[2017-06-23] MEDS: MIRTAZAPINE 15 MG TAB PO (20:20)
[2017-06-23] MEDS: DONEPEZIL 5 MG TAB PO (20:20)
[2017-06-24] MEDS: **hydrALAZINE** 10 MG TAB PO ×2 (00:08→05:50)
[2017-06-24 00:19] LABS: ANION GAP 6 MEQ/L (8-16); BLOOD UREA NITROGEN 35 MG/DL (7-18); CALCIUM LEVEL 9.1 MG/DL (8.8-10.2); CARBON DIOXIDE LEVEL 28 MEQ/L (21-32); CHLORIDE LEVEL 110 MEQ/L (98-107); CREATININE FOR GFR 1.08 MG/DL (0.55-1.30); GLOMERULAR FILTRATION RATE 51.1 (>32); GLUCOSE, FASTING 98 MG/DL (70-100); POTASSIUM SERUM 3.4 MEQ/L (3.5-5.1); SODIUM LEVEL 144 MEQ/L (136-145)
[2017-06-24 00:40] LABS: HEMATOCRIT 30.1 % (36.0-47.0); MEAN CORPUSCULAR HEMOGLOBIN 28.4 pg (27.0-33.0); MEAN CORPUSCULAR HGB CONC 33.2 g/dl (32.0-36.5); MEAN CORPUSCULAR VOLUME 85.5 fl (80.0-96.0); PLATELET COUNT, AUTOMATED 356 10^3/uL (150-450); RED BLOOD COUNT 3.52 10^6/uL (4.00-5.40); RED CELL DISTRIBUTION WIDTH 13.2 % (11.5-14.5); WHITE BLOOD COUNT 8.6 10^3/uL (4.0-10.0)
[2017-06-24 01:38] LABS: URIC ACID 4.6 MG/DL (2.6-6.0)
[2017-06-24] MEDS: ACETAMINOPHEN TAB 650MG DOSE (2X325MG) PO ×2 (04:19→11:00)
[2017-06-24 06:46] LABS: HEMATOCRIT 29.9 % (36.0-47.0); HEMOGLOBIN 9.9 g/dl (12.0-16.0); MEAN CORPUSCULAR HEMOGLOBIN 28.1 pg (27.0-33.0); MEAN CORPUSCULAR HGB CONC 33.1 g/dl (32.0-36.5); MEAN CORPUSCULAR VOLUME 84.9 fl (80.0-96.0); PLATELET COUNT, AUTOMATED 386 10^3/uL (150-450); RED BLOOD COUNT 3.52 10^6/uL (4.00-5.40); RED CELL DISTRIBUTION WIDTH 13.2 % (11.5-14.5); WHITE BLOOD COUNT 8.4 10^3/uL (4.0-10.0)
[2017-06-24 07:07] LABS: ANION GAP 10 MEQ/L (8-16); BLOOD UREA NITROGEN 29 MG/DL (7-18); CALCIUM LEVEL 8.9 MG/DL (8.8-10.2); CARBON DIOXIDE LEVEL 25 MEQ/L (21-32); CHLORIDE LEVEL 109 MEQ/L (98-107); CREATININE FOR GFR 0.92 MG/DL (0.55-1.30); GLOMERULAR FILTRATION RATE > 60.0 (>32); GLUCOSE, FASTING 94 MG/DL (70-100); POTASSIUM SERUM 3.3 MEQ/L (3.5-5.1); SODIUM LEVEL 144 MEQ/L (136-145)
[2017-06-24] MEDS: SUCRALFATE SUSP 1GM/10ML UD PO ×4 (08:14→19:51)
[2017-06-24] MEDS: PANTOPRAZOLE 40MG TAB (PROTONIX) PO (08:14)
[2017-06-24] MEDS: amLODIPine 10 MG TAB PO (08:14)
[2017-06-24] MEDS: BISOPROLOL FUMARATE 10 MG TAB PO (08:14)
[2017-06-24] MEDS: ASPIRIN 81 MG CHEW TABLET PO (08:15)
[2017-06-24] MEDS: POTASSIUM CHLORIDE 10 MEQ SR TABLET PO (08:15)
[2017-06-24] MEDS ORDERED: amLODIPine 5 MG TAB PO (09:00)
[2017-06-24] MEDS: CEFTRIAXONE SOD 1 GM in APPROPRIATE DILUENT 1 EA IV (17:41)
[2017-06-24] MEDS: DONEPEZIL 5 MG TAB PO (19:51)
[2017-06-24] MEDS: LevoFLOXacin 250 MG TABLET PO (19:51)
[2017-06-24] MEDS: MIRTAZAPINE 15 MG TAB PO (19:51)
[2017-06-25] MEDS: hydrOXYzine 25 MG TAB PO (00:12)
[2017-06-25 06:53] LABS: HEMATOCRIT 30.2 % (36.0-47.0); MEAN CORPUSCULAR HEMOGLOBIN 27.8 pg (27.0-33.0); MEAN CORPUSCULAR HGB CONC 33.1 g/dl (32.0-36.5); MEAN CORPUSCULAR VOLUME 83.9 fl (80.0-96.0); PLATELET COUNT, AUTOMATED 423 10^3/uL (150-450); WHITE BLOOD COUNT 7.3 10^3/uL (4.0-10.0)
[2017-06-25 07:09] LABS: ANION GAP 7 MEQ/L (8-16); BLOOD UREA NITROGEN 18 MG/DL (7-18); CALCIUM LEVEL 9.3 MG/DL (8.8-10.2); CARBON DIOXIDE LEVEL 28 MEQ/L (21-32); CHLORIDE LEVEL 106 MEQ/L (98-107); CREATININE FOR GFR 0.77 MG/DL (0.55-1.30); GLOMERULAR FILTRATION RATE > 60.0 (>32); GLUCOSE, FASTING 96 MG/DL (70-100); MAGNESIUM LEVEL 1.7 MG/DL (1.8-2.4); POTASSIUM SERUM 3.6 MEQ/L (3.5-5.1); SODIUM LEVEL 141 MEQ/L (136-145)
[2017-06-25] MEDS: SUCRALFATE SUSP 1GM/10ML UD PO ×2 (07:36→12:16)
[2017-06-25] MEDS: MAG SULF 1GM/100ML (MAG RUN) 1 GM in APPROPRIATE DILUENT 1 EA IV (08:15)
[2017-06-25] MEDS: BISOPROLOL FUMARATE 10 MG TAB PO (10:15)
[2017-06-25] MEDS: ASPIRIN 81 MG CHEW TABLET PO (10:15)
[2017-06-25] MEDS: MAGNESIUM OXIDE 400 MG TAB (MAG-OX) PO (10:15)
[2017-06-25] MEDS: PANTOPRAZOLE 40MG TAB (PROTONIX) PO (10:16)
[2017-06-25] MEDS: amLODIPine 10 MG TAB PO (10:16)
[2017-06-25] MEDS: VALSARTAN 80 MG TAB (DIOVAN) PO (10:16)
== END 2017-06-25 14:40 | disposition home health service (06) | DRG 689 ==
LOC: M ED 10:03 → M ED INP 15:48 → M MS5PR 20:30
DX: N39.0 Urinary tract infection, site not specified (principal); G93.41 Metabolic encephalopathy; N17.9 Acute kidney failure, unspecified; F03.90 Unspecified dementia, unspecified severity, without behavioral disturbance, psychotic disturbance, mood disturbance, and anxiety; R41.82 Altered mental status, unspecified; E86.0 Dehydration; K21.9 Gastro-esophageal reflux disease without esophagitis; I10 Essential (primary) hypertension; M85.832 Other specified disorders of bone density and structure, left forearm; Z66 Do not resuscitate; G43.909 Migraine, unspecified, not intractable, without status migrainosus; F41.9 Anxiety disorder, unspecified; R42 Dizziness and giddiness; M43.12 Spondylolisthesis, cervical region; R10.9 Unspecified abdominal pain; F32.9 Major depressive disorder, single episode, unspecified; Z96.653 Presence of artificial knee joint, bilateral; Z79.82 Long term (current) use of aspirin; Z79.899 Other long term (current) drug therapy; Z88.1 Allergy status to other antibiotic agents; Z88.5 Allergy status to narcotic agent; Z91.030 Bee allergy status; Z88.8 Allergy status to other drugs, medicaments and biological substances; Z91.048 Other nonmedicinal substance allergy status; Z88.6 Allergy status to analgesic agent; Z88.0 Allergy status to penicillin; Z86.73 Personal history of transient ischemic attack (TIA), and cerebral infarction without residual deficits

== ENCOUNTER 2017-09-16 10:41 | Observation (INO) | payer OTHER, MEDICAID ==
[2017-09-16 11:50] LABS: BASO % 0.6 % (0.0-1.0); EOS # 0.3 10^3/uL (0.0-0.50); EOS % 4.6 % (0.0-3.0); HEMATOCRIT 31.9 % (36.0-47.0); HEMOGLOBIN 10.5 g/dl (12.0-15.5); IMMATURE GRANULOCYTE % 0.2 % (0-3.0); LYMPH # 1.7 10^3/uL (1.5-4.5); LYMPH % 26.1 % (24.0-44.0); MEAN CORPUSCULAR HEMOGLOBIN 28.3 pg (27.0-33.0); MEAN CORPUSCULAR HGB CONC 32.9 g/dl (32.0-36.5); MONO # 0.8 10^3/uL (0.0-0.8); MONO % 11.6 % (0.0-5.0); NEUTROPHILS # 3.7 10^3/uL (1.8-7.7); NEUTROPHILS % 56.9 % (36.0-66.0); PLATELET COUNT, AUTOMATED 193 10^3/uL (150-450); RED BLOOD COUNT 3.71 10^6/uL (4.00-5.40); RED CELL DISTRIBUTION WIDTH 14.6 % (11.5-14.5); WHITE BLOOD COUNT 6.6 10^3/uL (4.0-10.0)
[2017-09-16 12:06] LABS: ANION GAP 7 MEQ/L (8-16); BLOOD UREA NITROGEN 23 MG/DL (7-18); CALCIUM LEVEL 8.7 MG/DL (8.8-10.2); CARBON DIOXIDE LEVEL 26 MEQ/L (21-32); CHLORIDE LEVEL 111 MEQ/L (98-107); CREATININE FOR GFR 1.17 MG/DL (0.55-1.30); GLOMERULAR FILTRATION RATE 46.6 (>32); GLUCOSE, FASTING 111 MG/DL (70-100); POTASSIUM SERUM 4.6 MEQ/L (3.5-5.1); SODIUM LEVEL 144 MEQ/L (136-145)
[2017-09-16 12:32] LABS: KETONE, URINE AUTO RFX NEGATIVE (NEGATIVE); LEUKOCYTE ESTERASE UR AUTO RFX NEGATIVE (NEGATIVE); NITRITE, URINE AUTO RFX NEGATIVE (NEGATIVE); RBC, URINE AUTO RFX 0 /HPF (0-3); SPECIFIC GRAVITY UR AUTO RFX 1.021 (1.002-1.035); SQUAM EPITHELIAL CELL UR AURFX 0 /HPF (0-6); WBC, URINE AUTO RFX 1 /HPF (0-3)
[2017-09-16] MEDS ORDERED: ONDANSETRON 4MG/2ML VIAL (J2405) IV (14:15)
[2017-09-16] MEDS ORDERED: SIMETHICONE 80 MG CHEW TAB PO (14:15)
[2017-09-16] MEDS: LIDOCAINE 5% (LIDODERM) PATCH TD (14:52)
[2017-09-16] MEDS: MECLIZINE 25 MG TABLET PO (17:36)
[2017-09-16] MEDS: ACETAMINOPHEN TAB 650MG DOSE (2X325MG) PO (17:36)
[2017-09-16] MEDS: HEPARIN SOD (PORCINE) 5000 UNITS/ML VIAL SC (20:06)
[2017-09-16] MEDS: PANTOPRAZOLE 40MG TAB (PROTONIX) PO (20:06)
[2017-09-16] MEDS: MIRTAZAPINE 15 MG TAB PO (20:06)
[2017-09-16] MEDS: IBUPROFEN 200 MG TAB PO (20:07)
[2017-09-16] MEDS: DONEPEZIL 5 MG TAB PO (20:08)
[2017-09-17] MEDS: **NOTE PATIENT COMMENT** MISC XX (03:00)
[2017-09-17 06:52] LABS: HEMATOCRIT 33.4 % (36.0-47.0); HEMOGLOBIN 10.9 g/dl (12.0-15.5); MEAN CORPUSCULAR HEMOGLOBIN 27.7 pg (27.0-33.0); MEAN CORPUSCULAR HGB CONC 32.6 g/dl (32.0-36.5); PLATELET COUNT, AUTOMATED 203 10^3/uL (150-450); RED BLOOD COUNT 3.93 10^6/uL (4.00-5.40); RED CELL DISTRIBUTION WIDTH 14.5 % (11.5-14.5); WHITE BLOOD COUNT 5.2 10^3/uL (4.0-10.0)
[2017-09-17 07:13] LABS: ALBUMIN 3.1 GM/DL (3.2-5.2); ALBUMIN/GLOBULIN RATIO 0.97 (1.00-1.93); ALKALINE PHOSPHATASE 62 U/L (45-117); ALT/SGPT 14 U/L (12-78); ANION GAP 10 MEQ/L (8-16); AST/SGOT 12 U/L (7-37); BILIRUBIN,TOTAL 0.4 MG/DL (0.2-1.0); BLOOD UREA NITROGEN 22 MG/DL (7-18); CALCIUM LEVEL 8.5 MG/DL (8.8-10.2); CARBON DIOXIDE LEVEL 26 MEQ/L (21-32); CHLORIDE LEVEL 108 MEQ/L (98-107); CREATININE FOR GFR 1.21 MG/DL (0.55-1.30); GLOMERULAR FILTRATION RATE 44.8 (>32); GLUCOSE, FASTING 83 MG/DL (70-100); MAGNESIUM LEVEL 1.8 MG/DL (1.8-2.4); SODIUM LEVEL 144 MEQ/L (136-145); TOTAL PROTEIN 6.3 GM/DL (6.4-8.2)
[2017-09-17] MEDS: ASCORBIC ACID 500 MG TAB PO (09:00)
[2017-09-17] MEDS: ASPIRIN 81 MG ENTERIC TAB PO (09:20)
[2017-09-17] MEDS: PANTOPRAZOLE 40MG TAB (PROTONIX) PO ×2 (09:20→20:30)
[2017-09-17] MEDS: IBUPROFEN 200 MG TAB PO ×2 (09:20→20:30)
[2017-09-17] MEDS: BISOPROLOL FUMARATE 10 MG TAB PO (09:21)
[2017-09-17] MEDS: VALSARTAN 80 MG TAB (DIOVAN) PO (09:21)
[2017-09-17] MEDS: MECLIZINE 25 MG TABLET PO ×2 (09:21→16:11)
[2017-09-17] MEDS: HEPARIN SOD (PORCINE) 5000 UNITS/ML VIAL SC ×2 (09:22→20:30)
[2017-09-17] MEDS: amLODIPine 10 MG TAB PO (09:22)
[2017-09-17] MEDS: ACETAMINOPHEN TAB 650MG DOSE (2X325MG) PO ×3 (11:04→22:24)
[2017-09-17] MEDS: DONEPEZIL 5 MG TAB PO (20:30)
[2017-09-17] MEDS: MIRTAZAPINE 15 MG TAB PO (20:30)
[2017-09-18 06:59] LABS: HEMATOCRIT 33.1 % (36.0-47.0); MEAN CORPUSCULAR HEMOGLOBIN 27.9 pg (27.0-33.0); MEAN CORPUSCULAR HGB CONC 33.2 g/dl (32.0-36.5); PLATELET COUNT, AUTOMATED 203 10^3/uL (150-450); RED BLOOD COUNT 3.94 10^6/uL (4.00-5.40); RED CELL DISTRIBUTION WIDTH 14.3 % (11.5-14.5); WHITE BLOOD COUNT 5.6 10^3/uL (4.0-10.0)
[2017-09-18 07:25] LABS: ALBUMIN/GLOBULIN RATIO 0.94 (1.00-1.93); ALKALINE PHOSPHATASE 59 U/L (45-117); ALT/SGPT 13 U/L (12-78); ANION GAP 8 MEQ/L (8-16); AST/SGOT 14 U/L (7-37); BILIRUBIN,TOTAL 0.3 MG/DL (0.2-1.0); BLOOD UREA NITROGEN 28 MG/DL (7-18); CALCIUM LEVEL 8.9 MG/DL (8.8-10.2); CARBON DIOXIDE LEVEL 24 MEQ/L (21-32); CHLORIDE LEVEL 111 MEQ/L (98-107); CREATININE FOR GFR 1.21 MG/DL (0.55-1.30); GLOMERULAR FILTRATION RATE 44.8 (>32); GLUCOSE, FASTING 82 MG/DL (70-100); MAGNESIUM LEVEL 1.8 MG/DL (1.8-2.4); POTASSIUM SERUM 4.1 MEQ/L (3.5-5.1); SODIUM LEVEL 143 MEQ/L (136-145); TOTAL PROTEIN 6.2 GM/DL (6.4-8.2)
[2017-09-18] MEDS: HEPARIN SOD (PORCINE) 5000 UNITS/ML VIAL SC (09:24)
[2017-09-18] MEDS: VALSARTAN 80 MG TAB (DIOVAN) PO (09:25)
[2017-09-18] MEDS: amLODIPine 10 MG TAB PO (09:25)
[2017-09-18] MEDS: PANTOPRAZOLE 40MG TAB (PROTONIX) PO (09:25)
[2017-09-18] MEDS: ASPIRIN 81 MG ENTERIC TAB PO (09:25)
[2017-09-18] MEDS: BISOPROLOL FUMARATE 10 MG TAB PO (09:25)
[2017-09-18] MEDS: ASCORBIC ACID 500 MG TAB PO (09:25)
[2017-09-18] MEDS: MECLIZINE 25 MG TABLET PO (09:25)
[2017-09-18] MEDS: IBUPROFEN 200 MG TAB PO (09:26)
== END 2017-09-18 12:15 | disposition home or self-care (01) ==
LOC: M ED 10:41 → M ED INP 14:08 → M MS5PR 15:55
DX: M54.5 Low back pain (principal); G89.29 Other chronic pain; I10 Essential (primary) hypertension; F03.90 Unspecified dementia, unspecified severity, without behavioral disturbance, psychotic disturbance, mood disturbance, and anxiety; K21.9 Gastro-esophageal reflux disease without esophagitis; Z86.73 Personal history of transient ischemic attack (TIA), and cerebral infarction without residual deficits; M81.0 Age-related osteoporosis without current pathological fracture; Z79.899 Other long term (current) drug therapy; Z79.82 Long term (current) use of aspirin; Z88.1 Allergy status to other antibiotic agents; Z88.0 Allergy status to penicillin; Z91.048 Other nonmedicinal substance allergy status; Z91.041 Radiographic dye allergy status; Z88.8 Allergy status to other drugs, medicaments and biological substances; Z88.5 Allergy status to narcotic agent; Z91.030 Bee allergy status
CPT/HCPCS: 97530

== ENCOUNTER → 2017-09-23 | Outpatient (CLI) | payer OTHER, MEDICAID ==
[~2017-09-23] MED LIST changes: -/AMLO25TA PO; -/BISO10TA PO; -ACET50TA PO; -ALEN70SO PO; -AMLO5TAB2 PO; -ANTI25TA PO; -ASPI1TAB PO; -ASPI81CH PO; -BIOT10008 PO; -BISO10TA6 PO; -CALC600T60 PO; -CALCTAB68 PO; -CLAR10CA3 PO; -CLAR1TAB2 PO; -DIOV160T6 PO; -ERGO500014 PO; -FOSA70TA PO; -GABA100C PO; -IBUPOTC PO; -KLOR1CAP2 PO; -LASI40TA; -LEVA1TAB2 PO; -LEVO250T12 PO; -LIDO5DIS TOP; -LIDO5DIS41 TD; -MECL-68 PO; -MELO7.5S PO; -MELO7.5T3 PO; -MELO7.5T7 PO; -MIRT15TA3 PO; -MULTIVIT PO; -NITR PO; -NYST10PW TOP; -OYST500T76 PO; -PANT40TA2 PO; -PARO20TA2 PO; -PARO30TA PO; -PLAV75TA2 PO; -POTA10CA2; -PRAV40TA; -PRIL20CA; +READI-CAT 2 As Ordered; -SKEL800T5; -SUCR10SS PO; -TYLE650T30 PO; -TYLE650T35 PO; -VALS1TAB46 PO; -VALS80CA PO; -VITA500T PO; -VITAMIN D50000 UNT; -VITMTA PO; -[UNRECOGNIZED DRUG - CODE] PO
== END ==
LOC: M RAD 09:07
DX: R63.4 Abnormal weight loss (principal)
CPT/HCPCS: 74176

== ENCOUNTER → 2017-11-07 | Outpatient (REF) | payer MEDICARE, MEDICAID ==
[2017-11-07 22:22] LABS: APPEARANCE, URINE MANUAL CLEAR (CLEAR); COLOR, URINE MANUAL ORANGE (YELLOW); GLUCOSE, URINE (UA) MANUAL NEGATIVE (NEGATIVE); PROTEIN, URINE MANUAL OBSCURED mg/dL (NEGATIVE); SPECIFIC GRAVITY,URINE MANUAL 1.015 (1.002-1.035)
[2017-11-07 22:23] LABS: BILIRUBIN, URINE MANUAL OBSCURED (NEGATIVE); BLOOD URINE MANUAL NEGATIVE (NEGATIVE); KETONE, URINE MANUAL OBSCURED mg/dL (NEGATIVE); LEUKOCYTE ESTERASE, URINE MAN OBSCURED (NEGATIVE); MICROSCOPIC INDICATED? MAN YES (NO); NITRITE, URINE MANUAL OBSCURED (NEGATIVE); UROBILINOGEN, URINE MANUAL OBSCURED mg/dl (NORMAL)
[2017-11-07 22:26] LABS: BACTERIA, URINE SMALL AMOUNT; HYALINE CAST, URINE NONE SEEN /lpf (0-1); MICROSCOPIC EXAM PERFORMED; MUCUS, URINE SMALL AMOUNT (NEGATIVE); SQUAMOUS EPITHELIAL CELL URINE MOD AMOUNT /hpf (SMALL AMT); TRANSITIONAL EPI CELLS, URINE SMALL AMOUNT /hpf
== END ==
LOC: M LAB REF 09:59
DX: N39.0 Urinary tract infection, site not specified (principal)
CPT/HCPCS: 81015

== ENCOUNTER 2018-02-11 11:09 | Emergency (ER) | payer OTHER, MEDICAID ==
[2018-02-11 12:40] LABS: BASO % 0.3 % (0.0-1.0); EOS # 0.1 10^3/uL (0.0-0.50); EOS % 0.7 % (0.0-3.0); HEMATOCRIT 35.7 % (36.0-47.0); HEMOGLOBIN 11.9 g/dl (12.0-15.5); IMMATURE GRANULOCYTE % 0.4 % (0-3.0); LYMPH # 1.3 10^3/uL (1.5-4.5); LYMPH % 13.5 % (24.0-44.0); MEAN CORPUSCULAR HEMOGLOBIN 29.3 pg (27.0-33.0); MEAN CORPUSCULAR HGB CONC 33.3 g/dl (32.0-36.5); MEAN CORPUSCULAR VOLUME 87.9 fl (80.0-96.0); MONO % 10.3 % (0.0-5.0); NEUTROPHILS % 74.8 % (36.0-66.0); PLATELET COUNT, AUTOMATED 258 10^3/uL (150-450); RED BLOOD COUNT 4.06 10^6/uL (4.00-5.40); RED CELL DISTRIBUTION WIDTH 13.7 % (11.5-14.5); WHITE BLOOD COUNT 9.4 10^3/uL (4.0-10.0)
[2018-02-11 12:48] LABS: ALBUMIN 3.3 GM/DL (3.2-5.2); ALBUMIN/GLOBULIN RATIO 1.06 (1.00-1.93); ALKALINE PHOSPHATASE 60 U/L (45-117); ALT/SGPT 12 U/L (12-78); ANION GAP 7 MEQ/L (8-16); AST/SGOT 13 U/L (7-37); BILIRUBIN,DIRECT 0.1 MG/DL (0.0-0.2); BILIRUBIN,TOTAL 0.4 MG/DL (0.2-1.0); BLOOD UREA NITROGEN 25 MG/DL (7-18); CALCIUM LEVEL 9.5 MG/DL (8.8-10.2); CARBON DIOXIDE LEVEL 30 MEQ/L (21-32); CHLORIDE LEVEL 104 MEQ/L (98-107); GLOMERULAR FILTRATION RATE 45.1 (>32); GLUCOSE, FASTING 135 MG/DL (70-100); LIPASE 90 U/L (73-393); POTASSIUM SERUM 3.6 MEQ/L (3.5-5.1); SODIUM LEVEL 141 MEQ/L (136-145); TOTAL PROTEIN 6.4 GM/DL (6.4-8.2)
[2018-02-11 12:56] LABS: INR 1.11; PROTHROMBIN TIME 14.4 SECONDS (12.1-14.4)
[2018-02-11 13:08] LABS: LACTIC ACID SEPSIS PROTOCOL 2.1 MMOL/L (0.4-2.0)
[2018-02-11] MEDS: ONDANSETRON 4MG/2ML VIAL (J2405) IV ×2 (13:35)
[2018-02-11] MEDS: MORPHINE 2 MG/ML 1ML SYRINGE (J2270) IV ×2 (13:35)
[2018-02-11] MEDS ORDERED: FLEET ENEMA PR ×2 (14:30)
== END 2018-02-11 18:42 | disposition home or self-care (01) ==
LOC: M ED 11:09
DX: K56.41 Fecal impaction (principal); I10 Essential (primary) hypertension; K21.9 Gastro-esophageal reflux disease without esophagitis; F03.90 Unspecified dementia, unspecified severity, without behavioral disturbance, psychotic disturbance, mood disturbance, and anxiety; M48.061 Spinal stenosis, lumbar region without neurogenic claudication; M48.02 Spinal stenosis, cervical region; Z88.1 Allergy status to other antibiotic agents; Z88.6 Allergy status to analgesic agent; Z88.0 Allergy status to penicillin; Z88.5 Allergy status to narcotic agent; Z88.3 Allergy status to other anti-infective agents; Z91.041 Radiographic dye allergy status; Z79.899 Other long term (current) drug therapy; Z79.82 Long term (current) use of aspirin
CPT/HCPCS: J2405

== ENCOUNTER 2018-05-13 10:19 | Emergency (ER) | payer MEDICARE, MEDICAID ==
[~2018-05-13] VITALS: Ht 142.2 cm; Wt 57.7 kg
[~2018-05-13 10:19] MED LIST changes: +/AMLO25TA PO; +/BISO10TA PO; +ACET50TA PO; +ALEN70SO PO; +AMLO10TA5 PO; +AMLO5TAB6 PO; +ANTI25TA PO; +ASPI1TAB PO; +ASPI81CH PO; +BIOT10008 PO; +BISO10TA6 PO; +CALC600T60 PO; +CALCTAB68 PO; +CLAR10CA3 PO; +CLAR1TAB2 PO; +COLA100C5 PO; +DIOV160T6 PO; +DONE5TAB64 PO; +ERGO500014 PO; +FOSA70TA PO; +GABA100C PO; +GAS-80CH PO; +IBUPOTC PO; +KLOR1CAP2 PO; +LASI40TA; +LEVA1TAB2 PO; +LEVO250T12 PO; +LIDO5DIS TOP; +LIDO5DIS41 TD; +MAPA500T2 PO; +MECL-68 PO; +MELO7.5S PO; +MELO7.5T3 PO; +MELO7.5T7 PO; +MIRT15TA3 PO; +MULTIVIT PO; +NITR PO; +NYST10PW TOP; +OYST500T76 PO; +PANT40TA2 PO; +PANT40TA3 PO; +PARO20TA2 PO; +PARO30TA PO; +PLAV75TA2 PO; +POTA10CA2; +PRAV40TA; +PRIL20CA; -READI-CAT 2 As Ordered; +SKEL800T5; +SUCR10SS PO; +TAB-TAB PO; +TYLE650T30 PO; +TYLE650T35 PO; +VALS1TAB46 PO; +VALS80CA PO; +VITA50005 PO; +VITA500T PO; +VITAMIN D50000 UNT; +VITMTA PO; +[UNRECOGNIZED DRUG - CODE] PO
[2018-05-13] MEDS ORDERED: IBUP200C25 PO (10:42)
[2018-05-13] MEDS ORDERED: SIME80TA PO (10:42)
[2018-05-13] MEDS ORDERED: ALEN70TA57 (10:42)
[2018-05-13] MEDS ORDERED: LOSARTAN HCTZ (10:42)
--- NOTE | 2018-05-13 12:43 | REP ---
Left rib series: Five views, including PA chest. History: Trauma. Findings: PA chest radiograph shows no evidence of pneumothorax or hydrothorax. Cardiomediastinal silhouette is unremarkable and unchanged. There are old healed rib fractures on the left. Mediastinum is not widened. There are clips in right upper quadrant of the abdomen. Multiple views of the left rib cage demonstrate old healed rib fractures involving the left 2nd, 4th, 5th, and 6th ribs. These are unchanged from February 11, 2018. There is diffuse osteopenia. No acute rib fracture is seen. No bony destructive lesion. Impression: Multiple old left-sided rib fractures. No acute rib fractures seen. Otherwise no acute disease. Electronically Signed by Henry Quinonez MD 05/13/2018 10:20 P
--- NOTE | 2018-05-13 12:46 | REP ---
Lumbar spine series: Five views. History: Trauma. Comparison study: December 17, 2007. Findings: EKG monitoring electrodes are seen overlying the abdomen. There is a levoconvex lumbar scoliotic curve. Vascular calcification is noted in a normal caliber aorta. There are advanced degenerative disc disease changes throughout the lumbar spine. There is straightening of the normal lumbar lordosis on lateral film and a mild gibbous deformity is seen at L4-5 with degenerative grade 1, 8 mm, L3-4 spondylolisthesis. These findings are unchanged from the December 2007 prior study and are not felt to be traumatic. No fracture or collapse is seen. No sacral fracture is noted. No posterior element fracture is visible. Impression: Advanced degenerative spondylosis changes. There is progressive degenerative disc disease but otherwise unchanged from the December 17, 2007 prior study. No traumatic abnormality noted. Electronically Signed by Henry Quinonez MD 05/13/2018 10:21 P
--- NOTE | 2018-05-13 12:49 | REP ---
Thoracic spine series: Three views. History: Trauma. Comparison is made with lateral chest radiograph from the March 20, 2017. Findings: There is advanced diffuse degenerative disc disease. This is radiographically more pronounced than on the 2017 prior study. No fracture or collapse is seen however. Extensive spur formation and sclerosis are present. The aorta is calcific and tortuous. No paravertebral soft-tissue mass is seen. Impression: Degenerative spondylosis changes more pronounced than on prior chest x-ray 2017. No traumatic abnormality is appreciated. Electronically Signed by Henry Quinonez MD 05/13/2018 10:21 P
[2018-05-13] MEDS ORDERED: NORCOTAB PO (13:24)
[2018-05-13] MEDS ORDERED: LIDO5DIS41 TOP (13:25)
[2018-05-13 13:58] VITALS: BP 132/61
== END 2018-05-13 14:03 | disposition home or self-care (01) ==
LOC: M ED 10:19 → EDBD 10:19 → M ED 14:03
DX: S20.222A Contusion of left back wall of thorax, initial encounter (principal); W01.0XXA Fall on same level from slipping, tripping and stumbling without subsequent striking against object, initial encounter; Y92.018 Other place in single-family (private) house as the place of occurrence of the external cause; I10 Essential (primary) hypertension; F03.90 Unspecified dementia, unspecified severity, without behavioral disturbance, psychotic disturbance, mood disturbance, and anxiety; K21.9 Gastro-esophageal reflux disease without esophagitis; Z79.899 Other long term (current) drug therapy; Z79.82 Long term (current) use of aspirin; Z88.0 Allergy status to penicillin; Z88.1 Allergy status to other antibiotic agents; Z88.5 Allergy status to narcotic agent; Z88.8 Allergy status to other drugs, medicaments and biological substances; Z91.030 Bee allergy status; Z91.041 Radiographic dye allergy status; Z91.048 Other nonmedicinal substance allergy status

== ENCOUNTER 2018-06-30 15:07 | Emergency (ER) | payer MEDICARE, MEDICAID ==
[~2018-06-30] VITALS: Ht 152.4 cm; Wt 61.4 kg
[~2018-06-30 15:07] MED LIST changes: -/AMLO25TA PO; -/BISO10TA PO; -ACET50TA PO; +ALEN70TA74; -ASPI1TAB PO; -ASPI81CH PO; +ASPI81CH49 PO; +ASPI81TA26 PO; -ERGO500014 PO; +HYDR-3715 PO; +IBUP200C25 PO; +LIDO5DIS41 TOP; +LOSARTAN HCTZ; +MAPA500T17 PO; -NITR PO; +NORV2TAB PO; +NYST-15 TOP; -NYST10PW TOP; +SIME80TA PO; -VALS1TAB46 PO; +VALS1TAB66 PO; +VITA500045 PO; +ZEBE1TAB PO; +[UNRECOGNIZED DRUG - CODE] PO
[2018-06-30] MEDS ORDERED: DOKTAB2 (15:25)
[2018-06-30] MEDS ORDERED: [UNRECOGNIZED DRUG - CODE] (15:25)
[2018-06-30] MEDS ORDERED: MECL-58 (15:25)
[2018-06-30] MEDS ORDERED: POTA10CA32 (15:25)
[2018-06-30] MEDS ORDERED: ATEN25TA (15:25)
[2018-06-30 17:12] LABS: BASO % 0.6 % (0.0-1.0); EOS # 0.3 10^3/uL (0.0-0.50); EOS % 4.4 % (0.0-3.0); HEMATOCRIT 39.5 % (36.0-47.0); HEMOGLOBIN 13.4 g/dl (12.0-15.5); LYMPH # 2.2 10^3/uL (1.5-4.5); LYMPH % 32.1 % (24.0-44.0); MEAN CORPUSCULAR HEMOGLOBIN 29.3 pg (27.0-33.0); MEAN CORPUSCULAR HGB CONC 33.9 g/dl (32.0-36.5); MEAN CORPUSCULAR VOLUME 86.2 fl (80.0-96.0); MONO # 0.8 10^3/uL (0.0-0.8); NEUTROPHILS # 3.5 10^3/uL (1.8-7.7); NEUTROPHILS % 51.8 % (36.0-66.0); PLATELET COUNT, AUTOMATED 274 10^3/uL (150-450); RED BLOOD COUNT 4.58 10^6/uL (4.00-5.40); WHITE BLOOD COUNT 6.8 10^3/uL (4.0-10.0)
[2018-06-30 17:39] LABS: CALCIUM LEVEL 9.7 MG/DL (8.8-10.2); CREATININE FOR GFR 1.06 MG/DL (0.55-1.30); GLOMERULAR FILTRATION RATE 52.1 (>32); POTASSIUM SERUM 4.1 MEQ/L (3.5-5.1)
--- NOTE | 2018-06-30 19:27 | REP ---
Clinical: Poor urination. Hesitancy. Technique: Real time dill scale ultrasound examination using curved array transducer. Findings: Mild bladder wall thickening cannot be excluded. No bladder mass lesion identified. Prevoid bladder measures 11.9 x 3.9 x 6.0 cm (181 ml.). Postvoid bladder is completely emptied. Postvoid residual equals 0%. Impression: 1. Mild bladder wall thickening cannot be excluded. 2. Complete voiding noted. Electronically Signed by Nemesio Felder MD 06/30/2018 07:18 P
[2018-06-30 19:40] VITALS: BP 146/78
[2018-06-30] MEDS ORDERED: MACR100C43 PO (19:41)
== END 2018-06-30 19:47 | disposition home or self-care (01) ==
LOC: M ED 15:07
DX: N39.0 Urinary tract infection, site not specified (principal); I10 Essential (primary) hypertension; K21.9 Gastro-esophageal reflux disease without esophagitis; F03.90 Unspecified dementia, unspecified severity, without behavioral disturbance, psychotic disturbance, mood disturbance, and anxiety; Z79.899 Other long term (current) drug therapy; Z79.82 Long term (current) use of aspirin; Z88.0 Allergy status to penicillin; Z88.1 Allergy status to other antibiotic agents; Z88.5 Allergy status to narcotic agent; Z88.8 Allergy status to other drugs, medicaments and biological substances; Z91.030 Bee allergy status; Z91.041 Radiographic dye allergy status

== ENCOUNTER 2018-07-22 18:23 | Emergency (ER) | payer MEDICARE, MEDICAID ==
[~2018-07-22] VITALS: Ht 152.4 cm; Wt 56.4 kg
[~2018-07-22 18:23] MED LIST changes: -ALEN70TA74; +ALEN70TA74 PO; +ATEN25TA; +DOKTAB2; -LOSARTAN HCTZ; +LOSARTAN HCTZ PO; +MACR100C43 PO; +MECL-58; +POTA10CA32 PO; +[UNRECOGNIZED DRUG - CODE]
[2018-07-22 19:05] LABS: BASO # 0.1 10^3/uL (0.0-0.2); BASO % 0.9 % (0.0-1.0); EOS # 0.3 10^3/uL (0.0-0.50); EOS % 4.4 % (0.0-3.0); HEMATOCRIT 35.7 % (36.0-47.0); LYMPH # 1.9 10^3/uL (1.5-4.5); LYMPH % 33.6 % (24.0-44.0); MEAN CORPUSCULAR HEMOGLOBIN 29.4 pg (27.0-33.0); MEAN CORPUSCULAR HGB CONC 33.6 g/dl (32.0-36.5); MEAN CORPUSCULAR VOLUME 87.5 fl (80.0-96.0); MONO # 0.6 10^3/uL (0.0-0.8); NEUTROPHILS # 2.8 10^3/uL (1.8-7.7); NEUTROPHILS % 49.7 % (36.0-66.0); PLATELET COUNT, AUTOMATED 218 10^3/uL (150-450); RED BLOOD COUNT 4.08 10^6/uL (4.00-5.40); WHITE BLOOD COUNT 5.6 10^3/uL (4.0-10.0)
[2018-07-22 19:16] LABS: INR 1.05; PARTIAL THROMBOPLASTIN TIME 27.7 SECONDS (25.4-37.6); PROTHROMBIN TIME 13.8 SECONDS (12.1-14.4)
--- NOTE | 2018-07-22 19:21 | REP ---
Portable chest x-ray: Single view. History: Chest pain. Comparison study: May 13, 2018. Findings: EKG monitoring electrodes overlie the chest. Heart size is normal. The lungs are well inflated and free of infiltrate. There is an old healed rib fracture on the left laterally. Degenerative changes are seen in the shoulders. The aorta is is tortuous. Pulmonary vasculature is not increased. Impression: No acute disease. Electronically Signed by Henry Quinonez MD 07/22/2018 07:12 P
[2018-07-22 19:38] LABS: ALBUMIN 3.3 GM/DL (3.2-5.2); ALT/SGPT 14 U/L (12-78); BILIRUBIN,DIRECT < 0.1 MG/DL (0.0-0.2); BILIRUBIN,TOTAL 0.2 MG/DL (0.2-1.0); BLOOD UREA NITROGEN 25 MG/DL (7-18); CALCIUM LEVEL 8.9 MG/DL (8.8-10.2); CARBON DIOXIDE LEVEL 27 MEQ/L (21-32); CHLORIDE LEVEL 108 MEQ/L (98-107); CK-MB VALUE MASS < 1.0 NG/ML (<3.6); CPK CREATINE PHOSPHOKINASE 46 U/L (26-192); CREATININE FOR GFR 1.13 MG/DL (0.55-1.30); FREE T4 0.95 NG/DL (0.76-1.46); GLOMERULAR FILTRATION RATE 48.4 (>32); GLUCOSE, FASTING 129 MG/DL (70-100); LIPASE 96 U/L (73-393); MB/CK RELATIVE INDEX 2.17 (< OR =4); POTASSIUM SERUM 4.2 MEQ/L (3.5-5.1); SODIUM LEVEL 141 MEQ/L (136-145); TOTAL PROTEIN 7.1 GM/DL (6.4-8.2); TROPONIN I < 0.02 NG/ML (< 0.10)
--- NOTE | 2018-07-22 19:50 | REP ---
CT brain without contrast: History: Trauma. Comparison CT study is from June 16, 2017. Findings: Preliminary digital product support sales representative radiograph is unremarkable. Vascular calcification is noted. The visualized paranasal sinuses are clear. No bony calvarial lesion is seen. No intraorbital abnormality is noted. There is diffuse moderate cerebral and cerebellar atrophy. Old lacunar infarct is seen in the right cerebellum unchanged. There is a left posterior fossa subarachnoid cyst again noted. There are small vessel atherosclerotic changes in the periventricular white matter of the frontal lobes bilaterally. There is no evidence of intracranial hemorrhage. No mass, infarct or midline shift is seen. Impression: Moderate diffuse atrophy vascular calcification in small vessel changes. Old right cerebellar lacunar infarct. No acute intracranial abnormality. No skull fracture or significant scalp hematoma seen. Electronically Signed by Henry Quinonez MD 07/23/2018 07:32 A
--- NOTE | 2018-07-22 19:54 | REP ---
CT study of the cervical spine without contrast: History: Trauma. Comparison cervical spine CT study June 23, 2017. Technique: Helical scanning is acquired and overlapping 2 mm high resolution axial images were generated and reviewed at bone and soft tissue window settings. Coronal and sagittal multiplanar re-formations images are generated. CT findings: There is no evidence of cervical spine element fracture. No skull base fracture is seen. Cervical vertebral body heights are preserved. Alignment is normal. Facet joints are normally aligned bilaterally at each cervical level on multiplanar re-formations images. There is no evidence of intraspinal or paraspinal hematoma. No extra vertebral abnormality is seen. There are degenerative disc and osteoarthritic facet changes at multiple levels in the cervical spine unchanged. Osteoarthritis is again seen at the C1-2 articulation. There is no evidence of cervical spine element fracture or subluxation. Multilevel neural foraminal narrowing is present most pronounced at C5-6 and C6-7. Impression: Moderate degenerative spondylosis changes. Stable since June 23, 2017. Otherwise negative CT study of the cervical spine without contrast. No fracture seen. Electronically Signed by Henry Quinonez MD 07/23/2018 07:33 A
--- NOTE | 2018-07-22 19:57 | REP ---
CT studies of thoracic spine without contrast: History: Trauma. Comparison CT study of the thoracic spine is dated September 12, 2012. Technique: Helical scanning is acquired. 4 mm axial images are reformatted. Coronal and sagittal MPR images are generated. CT findings: Thoracic vertebral body heights are preserved. Alignment is normal. No fracture or collapse is visible. There are advanced degenerative disc and osteoarthritic changes in and about the thoracic spine. These are essentially unchanged from the 2013 prior study. No paravertebral soft-tissue mass or hematoma is evident. The visualized lung bull are clear. Impression: Advanced degenerative thoracic spine spondylosis changes. No traumatic abnormality noted. Electronically Signed by Henry Quinonez MD 07/23/2018 07:33 A
--- NOTE | 2018-07-22 19:59 | REP ---
CT lumbar spine without contrast: History: Trauma. Comparison CT study is from June 27, 2013. Technique: Helical scanning is acquired. Axial 4 mm images are reformatted. Coronal and sagittal MPR images are generated and reviewed. CT findings: Lumbar vertebral body heights are preserved. Alignment is unchanged. There are degenerative grade 1 L4-5 and L3-4 spondylolisthesis due to degenerative disc and osteoarthritic facet disease. These findings are unchanged. No fracture or collapse is seen. There is diffuse degenerative disc disease with vacuum phenomenon visible at each lumbar level. No paravertebral hematoma or mass is seen. There is evidence of significant central canal stenosis at L2-3, L3-4, L4-5. This is unchanged. Pedicles and posterior elements are intact. Impression: Advanced degenerative spondylosis changes. Levoconvex curvature. Degenerative grade 1 L3-4 and L4-5 spondylolisthesis all unchanged from the prior study. Multilevel central canal stenosis unchanged. No traumatic abnormality is appreciated. Electronically Signed by Henry Quinonez MD 07/23/2018 07:34 A
[2018-07-22] MEDS ORDERED: ACETAMINOPHEN TAB 650MG DOSE (2X325MG) PO ONE (20:00)
[2018-07-22 21:22] VITALS: BP 135/65
--- NOTE | 2018-07-23 06:40 | ECGEPIP ---
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
--- NOTE | 2018-07-23 07:28 | REP ---
AP pelvis: Comparison is 06/29/2014. No pelvic fracture is identified. The sacroiliac articulations are unremarkable. There is advanced a left hip osteoarthritis. This has progressed slightly. There are no calcifications or foreign bodies. There is degenerative disc disease in the visualized lower lumbar spine. Impression: No pelvic fracture. Left hip advanced osteoarthritis. The lumbar spine degenerative disc disease. Electronically Signed by rJ Shukla MD 07/23/2018 07:20 A
== END 2018-07-22 21:40 | disposition home or self-care (01) ==
LOC: M ED 18:23
DX: M54.9 Dorsalgia, unspecified (principal); W01.0XXA Fall on same level from slipping, tripping and stumbling without subsequent striking against object, initial encounter; Y92.018 Other place in single-family (private) house as the place of occurrence of the external cause; I10 Essential (primary) hypertension; F03.90 Unspecified dementia, unspecified severity, without behavioral disturbance, psychotic disturbance, mood disturbance, and anxiety; F33.9 Major depressive disorder, recurrent, unspecified; F41.9 Anxiety disorder, unspecified; M81.0 Age-related osteoporosis without current pathological fracture; K21.9 Gastro-esophageal reflux disease without esophagitis; G43.909 Migraine, unspecified, not intractable, without status migrainosus; Z79.899 Other long term (current) drug therapy; Z79.82 Long term (current) use of aspirin; Z88.0 Allergy status to penicillin; Z88.1 Allergy status to other antibiotic agents; Z88.5 Allergy status to narcotic agent; Z88.8 Allergy status to other drugs, medicaments and biological substances; Z91.030 Bee allergy status; Z91.040 Latex allergy status; Z91.048 Other nonmedicinal substance allergy status

== ENCOUNTER 2018-08-13 12:27 | Emergency (ER) | payer MEDICARE, MEDICAID ==
[~2018-08-13] VITALS: Ht 142.2 cm; Wt 57.0 kg
[2018-08-13 13:21] LABS: BASO # 0.1 10^3/uL (0.0-0.2); BASO % 0.7 % (0.0-1.0); EOS # 0.3 10^3/uL (0.0-0.50); EOS % 3.6 % (0.0-3.0); HEMATOCRIT 37.8 % (36.0-47.0); HEMOGLOBIN 12.7 g/dl (12.0-15.5); LYMPH # 2.1 10^3/uL (1.5-4.5); LYMPH % 30.2 % (24.0-44.0); MEAN CORPUSCULAR HEMOGLOBIN 29.3 pg (27.0-33.0); MEAN CORPUSCULAR HGB CONC 33.6 g/dl (32.0-36.5); MEAN CORPUSCULAR VOLUME 87.3 fl (80.0-96.0); MONO # 0.9 10^3/uL (0.0-0.8); MONO % 13.3 % (0.0-5.0); NEUTROPHILS # 3.6 10^3/uL (1.8-7.7); NEUTROPHILS % 51.9 % (36.0-66.0); PLATELET COUNT, AUTOMATED 236 10^3/uL (150-450); RED BLOOD COUNT 4.33 10^6/uL (4.00-5.40); WHITE BLOOD COUNT 6.9 10^3/uL (4.0-10.0)
--- NOTE | 2018-08-13 13:57 | REP ---
CT brain without contrast: History: Altered mental status. Comparison study: July 22, 2018. Findings: Digital preliminary salesforce administrator radiograph is unremarkable. The patient is edentulous. Bone window settings demonstrate an intact bony calvarium. Visualized paranasal sinuses are clear. There is moderate vascular calcification in the distal vertebral and distal carotid arteries. There is moderate diffuse cerebral atrophy. Small vessel atherosclerotic changes are seen in the periventricular white matter bilaterally in the supratentorial brain unchanged from the prior study. Stable left posterior fossa subarachnoid cyst is seen. Evidence of an old right cerebellar infarction is again noted unchanged. No new infarct, hemorrhage, mass or midline shift is seen. Impression: Vascular calcification, diffuse atrophy, small vessel changes. Old right cerebellar infarct. No acute infarct, mass, or bleed. Electronically Signed by Henry Quinonez MD 08/13/2018 02:51 P
[2018-08-13 14:00] LABS: ALBUMIN 3.4 GM/DL (3.2-5.2); ALT/SGPT 14 U/L (12-78); BILIRUBIN,DIRECT < 0.1 MG/DL (0.0-0.2); BILIRUBIN,TOTAL 0.3 MG/DL (0.2-1.0); BLOOD UREA NITROGEN 26 MG/DL (7-18); CALCIUM LEVEL 9.4 MG/DL (8.8-10.2); CARBON DIOXIDE LEVEL 30 MEQ/L (21-32); CHLORIDE LEVEL 105 MEQ/L (98-107); CK-MB VALUE MASS < 1.0 NG/ML (<3.6); CPK CREATINE PHOSPHOKINASE 51 U/L (26-192); CREATININE FOR GFR 1.31 MG/DL (0.55-1.30); GLOMERULAR FILTRATION RATE 40.8 (>32); GLUCOSE, FASTING 76 MG/DL (70-100); MB/CK RELATIVE INDEX 1.96 (< OR =4); POTASSIUM SERUM 3.6 MEQ/L (3.5-5.1); SODIUM LEVEL 140 MEQ/L (136-145); THYROID STIMULATING HORMONE 0.654 uIU/ML (0.358-3.740); TOTAL PROTEIN 7.5 GM/DL (6.4-8.2); TROPONIN I < 0.02 NG/ML (< 0.10)
--- NOTE | 2018-08-13 14:11 | REP ---
CT STUDY OF THE CERVICAL SPINE WITHOUT CONTRAST: HISTORY: Altered mental status. TECHNIQUE: Helical scanning is acquired and overlapping 2 mm high resolution axial images were generated and reviewed at bone and soft tissue window settings. Coronal and sagittal multiplanar re-formations images are generated. CT FINDINGS: There is no evidence of cervical spine element fracture. No skull base fracture is seen. Cervical vertebral body heights are preserved. Alignment is normal. Facet joints are normally aligned bilaterally at each cervical level on multiplanar re-formations images. There is no evidence of intraspinal or paraspinal hematoma. No extra vertebral abnormality is seen. There are fairly advanced degenerative spondylosis changes. Osteoarthritis is seen at the C1-2 articulation anteriorly. Osteoarthritic facet changes are noted bilaterally. The right C2-3 and the left C4-5 facet joint appear to be ankylosed. No fracture or collapse is seen. There is vacuum phenomenon in a left posterior disc protrusion at C5-6. Posterior osteophytic ridging is seen at C5-6 and C6-7. IMPRESSION: Advanced degenerative spondylosis changes. Left C5-6 disc protrusion with vacuum phenomenon. No traumatic or other acute abnormality. Otherwise negative CT study of the cervical spine without contrast. Electronically Signed by Henry Quinonez MD 08/13/2018 02:52 P
--- NOTE | 2018-08-13 14:14 | REP ---
CT study of the thoracic spine without contrast: History: Altered mental status. CT findings: Thoracic vertebral body heights are preserved. Alignment is normal. There are advanced degenerative disc changes with anterior and bilateral lateral discogenic spurring at multiple levels. No fracture or collapse is seen. No bony destructive lesion is appreciated. A benign-appearing calcification is partially visualized in the right thyroid lobe at the edge of the imaging field of view. The visualized lung bull show no significant abnormality. Impression: Advanced degenerative disc disease at multiple levels. No fracture, collapse, or bony destructive lesion. Electronically Signed by Henry Quinonez MD 08/16/2018 07:11 P
[2018-08-13 15:31] VITALS: BP 153/67
--- NOTE | 2018-08-13 18:27 | REP ---
Left shoulder series: Three views: History: Trauma. Comparison left shoulder radiographs are from January 02, 2012. Findings: The left glenohumeral and acromioclavicular joints are normally aligned. There is mild osteoarthritic narrowing at the AC joint. No fracture is seen. There is diffuse osteopenia. There are old rib fractures noted on the left. Impression: Diffuse osteopenia. AC joint osteoarthritis. Old healed left-sided rib fractures. No acute fracture is seen. Electronically Signed by Henry Quinonez MD 08/16/2018 07:11 P
--- NOTE | 2018-08-13 19:23 | ECGEPIP ---
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
--- NOTE | 2018-08-17 06:26 | ED PDOC ---
Post-Departure Follow-Up dr gonzalez faxed formal report of ct c spine for fu Mireya Atkins MD August 17, 2018 06:26
== END 2018-08-13 18:17 | disposition home or self-care (01) ==
LOC: EDBD 12:27 → M ED 12:27
DX: S20.222A Contusion of left back wall of thorax, initial encounter (principal); S40.012A Contusion of left shoulder, initial encounter; W01.0XXA Fall on same level from slipping, tripping and stumbling without subsequent striking against object, initial encounter; Y93.9 Activity, unspecified; Y92.9 Unspecified place or not applicable; Y99.9 Unspecified external cause status; M19.012 Primary osteoarthritis, left shoulder; M47.892 Other spondylosis, cervical region; M50.222 Other cervical disc displacement at C5-C6 level; M85.80 Other specified disorders of bone density and structure, unspecified site; I23.1 Atrial septal defect as current complication following acute myocardial infarction; R00.1 Bradycardia, unspecified; K21.9 Gastro-esophageal reflux disease without esophagitis; F03.90 Unspecified dementia, unspecified severity, without behavioral disturbance, psychotic disturbance, mood disturbance, and anxiety; Z66 Do not resuscitate; Z79.899 Other long term (current) drug therapy; Z87.81 Personal history of (healed) traumatic fracture; Z88.1 Allergy status to other antibiotic agents; Z88.5 Allergy status to narcotic agent; Z88.6 Allergy status to analgesic agent; Z91.030 Bee allergy status; Z91.041 Radiographic dye allergy status; Z91.09 Other allergy status, other than to drugs and biological substances

== ENCOUNTER 2018-10-07 18:42 | Inpatient (IN) | payer MEDICARE, MEDICAID ==
[~2018-10-07] VITALS: Ht 142.2 cm; Wt 63.0 kg
[~2018-10-07 18:42] MED LIST changes: +BISO10TA14 PO; -BISO10TA6 PO; -DOKTAB2; -MECL-68 PO; +MECL1TAB31 PO; +SENN1TAB84
[2018-10-07] MEDS ORDERED: traMADol 50 MG TAB PO ONE (19:30)
--- NOTE | 2018-10-07 19:30 | REPVR ---
EXAM: CT Head Without Contrast EXAM DATE/TIME: 10/07/2018 7:00 PM CLINICAL HISTORY: 87 years old, female; Injury or trauma; Fall; Initial encounter; Blunt trauma (contusions or hematomas); Consciousness not specified TECHNIQUE: Imaging protocol: Axial computed tomography images of the head without contrast. Radiation optimization: All CT scans at this facility use at least one of these dose optimization techniques: automated exposure control; mA and/or kV adjustment per patient size (includes targeted exams where dose is matched to clinical indication); or iterative reconstruction. COMPARISON: CT Head without contrast 08/13/2018 1:05 PM FINDINGS: Brain: Arachnoid cyst left posterior fossa again redemonstrated. There is moderate age-related parenchymal volume loss. White matter changes are demonstrated in the subcortical, centrum semiovale and periventricular white matter consistent with small vessel white matter angiopathic gliosis. Ventricles: The degree of ventricular dilatation is normal for age. No pathologic enlargement demonstrated. Bones/joints: Unremarkable. No acute fracture. Sinuses: Visualized sinuses are unremarkable. No fluid levels. Mastoid air cells: Visualized mastoid air cells are well aerated. No mastoid effusion. Soft tissues: Unremarkable. IMPRESSION: There is moderate age-related parenchymal volume loss. White matter changes are demonstrated in the subcortical, centrum semiovale and periventricular white matter consistent with small vessel white matter angiopathic gliosis. Electronically signed by: Tom Dowling On 10/07/2018 19:29:51 PM
--- NOTE | 2018-10-07 20:24 | REPVR ---
EXAM: CT Cervical Spine Without Contrast EXAM DATE/TIME: 10/07/2018 7:00 PM CLINICAL HISTORY: 87 years old, female; Injury or trauma; Fall; Initial encounter; Blunt trauma TECHNIQUE: Imaging protocol: Axial computed tomography images of the cervical spine without contrast. Coronal and sagittal reformatted images were created and reviewed. Radiation optimization: All CT scans at this facility use at least one of these dose optimization techniques: automated exposure control; mA and/or kV adjustment per patient size (includes targeted exams where dose is matched to clinical indication); or iterative reconstruction. COMPARISON: CT Spine,cervical w/o contrast 08/13/2018 1:05 PM FINDINGS: Vertebrae: See Discs/spinal Canal/neural Foramina Finding. Discs/Spinal canal/Neural foramina: Degenerative changes atlantoaxial joint. Disc space narrowing at C5-6 and C6-7 with uncovertebral osteophytes. Slight anterolisthesis of C4 on C5 likely degenerative. Moderate bilateral foraminal narrowing at C2, severe foraminal narrowing on the right and moderate foraminal narrowing on the left at C3, severe foraminal narrowing on the left and moderate to severe foraminal narrowing on the right at C4, severe bilateral foraminal narrowing at C5-6 secondary to uncinate joint hypertrophic changes. Disc osteophyte complexes at C5-6 and C6-7, with a left posterior disc protrusion with vacuum phenomenon at C5-6 again redemonstrated. effacing the ventral subarachnoid space with mild cord impingement at each level. Soft tissues: Unremarkable. Thyroid: Calcified nodule right lobe of the thyroid gland. No followup suggested considering patient age. Lungs: Lung apices are normal. IMPRESSION: 1. Stable degenerative spondylosis. 2. No acute findings. COMMENT: Consistent with the [employer]'s Incidental Findings Committee Report (J Am Juliette Radiol 2015): Unless the patient has clinical risk factors for thyroid cancer or has suspicious findings characterized in this report, for patients under 35 years old any thyroid nodule less than 1.0 cm, and for patients at least 35 years old any thyroid nodule less than 1.5 cm is highly likely to be benign and does not require follow-up imaging or biopsy. Patients with limited life expectancy and/or comorbidities do not require follow up imaging or biopsy for nodules of any size. Electronically signed by: Tom Dowling On 10/07/2018 20:23:35 PM
[2018-10-07] MEDS ORDERED: NORCO, ANEXSIA 5/325MG TABLET (HYDROcodone/ACETAMINOPHEN) PO ONE (21:45)
--- NOTE | 2018-10-07 22:26 | REPVR ---
EXAM: CT Right Lower Extremity Without Contrast. Hip EXAM DATE/TIME: 10/07/2018 9:59 PM CLINICAL HISTORY: 87 years old, female; Pain; Hip; Right; Additional info: Intractable right hip pain, fall, no FX on xray TECHNIQUE: Imaging protocol: CT of the Right lower extremity without contrast was performed. Exam focused on the hip. Coronal and sagittal reformatted images were created and reviewed. Radiation optimization: All CT scans at this facility use at least one of these dose optimization techniques: automated exposure control; mA and/or kV adjustment per patient size (includes targeted exams where dose is matched to clinical indication); or iterative reconstruction. COMPARISON: No relevant prior studies available. FINDINGS: Bones/joints: Mild degenerative changes in the right hip. Osteoporosis. Soft tissues: Soft tissue edema lateral to the greater trochanter may be related to trochanteric bursitis or post traumatic. IMPRESSION: Soft tissue edema lateral to the greater trochanter may be related to trochanteric bursitis or post traumatic. No fracture. Electronically signed by: Tom Dowling On 10/07/2018 22:25:37 PM
--- NOTE | 2018-10-07 23:57 | HPEPDOC ---
General Date of Admission 10/07/2018 Date of Service: Oct 07, 2018 Attending Physician: DON TOVAR DO Chief Complaint The patient is a 87-year-old female admitted with a reason for visit of FALL. History of Present Illness Patient is an 87-year-old female, primary school history significant for vascular dementia, hypertension, prior TIA, presenting the hospital status post mechanical fall. History, which was provided by daughter at bedside, states patient was trying to get out of her car in a hurry and landed on her right side on the sidewalk. There was no loss of consciousness. She was brought to the emergency room for further evaluation given advanced age and complains of pain. In the emergency room, head CT showed moderate age-related parenchymal volume loss that was negative for acute intracranial process. Cervical spine CT was negative for acute intervertebral process. CT of the right hip showed mild degenerative changes, osteoporosis, soft tissue edema lateral to the greater trochanter but was negative for fracture. White blood count was 10.8 on admit. Patient was, however, unable to stand with multiple attempts and pain control. The decision was therefore made to observe her further overnight prior to discharge home. On assessment, she complained of right hip pain and right head pain. She denied any chest pain, shortness of breath, weakness. Home Medications Scheduled Alendronate Sodium (Alendronate Sodium) 70 Mg Tab, 70 MG PO 1XWK, (Reported) Amlodipine Besylate (Amlodipine Besylate) 10 Mg Tab, 10 MG PO DAILY, (Reported) Ascorbic Acid (Vitamin C) 500 Mg Tab, 500 MG PO DAILY, (Reported) Aspirin (Aspirin) 81 Mg Chw, 81 MG PO DAILY, (Reported) Biotin (Vitamin H) (Biotin) 1,000 Mcg Tab, 1,000 MCG PO DAILY, (Reported) Bisoprolol Fumarate (Bisoprolol Fumarate) 10 Mg Tab, 10 MG PO DAILY, (Reported) Calcium/Vitamin D (Calcium 600 + D 600-400 mg-Unit) 1 Tab Tab, 2 TAB PO DAILY, (Reported) Donepezil Hydrochloride (Donepezil HCl) 5 Mg Tab, 5 MG PO QHS, (Reported) Ergocalciferol (Vitamin D2) (Vitamin D2) 50,000 Unit Cap, 50,000 UNIT PO QWEEK, (Reported) Ibuprofen (Ibuprofen) 200 Mg Cap, 1 CAP PO Q8H, (Reported) Meclizine HCl (Meclizine HCl) 25 Mg Tab, 25 MG PO BID, (Reported) TAKES AT 0800 AND 1700 Mirtazapine (Mirtazapine) 15 Mg Tab, 15 MG PO QHS, (Reported) Multivitamin (Tab-A-Eliseo) 1 Tab Tab, 1 TAB PO DAILY, (Reported) Pantoprazole Sodium (Pantoprazole Sodium) 40 Mg Tab, 40 MG PO DAILY, (Reported) Potassium Chloride (Potassium Chloride) 10 Meq Cap, 20 MEQ PO DAILY, (Reported) Simethicone (Simethicone) 80 Mg Chew, 80 MG PO ASDIRECTED for gas, (Reported) [[id number]] 50-12.5 TAB, 1 TAB PO DAILY, (Reported) Allergies Coded Allergies: TAPE (Verified Allergy, Intermediate, RASH, 05/13/18) Contrast Media (Verified Allergy, Unknown, IV DYE, 05/13/18) amoxicillin (Verified Allergy, Unknown, 06/30/18) bacitracin (Verified Allergy, Unknown, 06/30/18) bee venom protein (honey bee) (Verified Allergy, Unknown, 06/30/18) carisoprodol (Verified Allergy, Unknown, 06/30/18) cephalexin (Verified Allergy, Unknown, 06/30/18) clavulanic acid (Verified Allergy, Unknown, 06/30/18) codeine (Verified Allergy, Unknown, 06/30/18) meperidine (Verified Allergy, Unknown, 06/30/18) morphine (Verified Allergy, Unknown, 06/30/18) neomycin (Verified Allergy, Unknown, 06/30/18) pentazocine (Verified Allergy, Unknown, 06/30/18) polymyxin B (Verified Allergy, Unknown, 06/30/18) pregabalin (Verified Allergy, Unknown, 06/30/18) zolpidem (Verified Allergy, Unknown, 06/30/18) sleepwalking; causes falls Past Medical History Medical History Hypertension. Dementia. TIA Surgical History Bilateral knee replacement Appendectomy. Cholecystectomy. Hysterectomy Bladder suspension Lumpectomy Tonsillectomy Family History Father: Hypertension Mother: Hypertension. Sibling: Throat cancer Social History * Smoker: Denies Alcohol: Denies Drugs: denies A-FIB/CHADSVASC A-FIB History Current/History of A-Fib/PAF?: No Current PO Anticoag Therapy: No Review of Systems Other systems Review of systems was not completed, due to underlying dementia Physical Examination Other physical findings GENERAL: NAD SKIN : Warm, dry, bruising to right hip HEENT: Right perietal lobe contusion, normocephalic, PERRL, moist mucous membrane CARDIOVASCULAR: Regular rate and rhythm, S1S2, no JVD, no edema, distal pulses + and palpable RESP: CTAB, no accessory muscle use noted ABDOMEN: BS+ non distended non tender MS: no joint deformities NEURO: Alert and oriented x 1, CN2-12 grossly intact PSYCH: no anxiety or agitation, appropriate mood and affect. Vital Signs Vital Signs Date Time Temp Pulse Resp B/P (MAP) Pulse Ox O2 Delivery O2 Flow Rate FiO2 10/07/18 23:09 20 10/07/18 23:08 66 129/63 (85) 95 Room Air 10/07/18 18:53 97.6 Assessment/Plan Hip contusion -Status post mechanical fall -Imaging study negative for acute fracture or process -Pain control as needed -Physical therapy, occupational therapy evaluation for discharge needs and recommendations Head contusion -Status post mechanical fall -CT brain negative for acute process -Continue to monitor neurological status -Reimaging if any changes noted, suggestive of acute intracranial process Hypertension -Stable, controlled -Monitoring per unit protocol -Continue home medications for blood pressure control Dementia -Stable, chronic -Fall precautions DVT prophylaxis -Antiembolic stockings given recent fall with head contusion Advance planning -CODE STATUS is DO NOT RESUSCITATE -Anticipate discharge home tomorrow Plan / VTE VTE Prophylaxis Ordered?: Yes ROXY HUFFMAN [employer]PERVIS[employer] Oct 07, 2018 23:57
[2018-10-08 00:10] LABS: PROTHROMBIN TIME 12.9 SECONDS (11.8-14.0)
[2018-10-08 00:11] LABS: BASO % 0.3 % (0.0-1.0); EOS # 0.2 10^3/uL (0.0-0.50); HEMATOCRIT 36.7 % (36.0-47.0); HEMOGLOBIN 12.3 g/dl (12.0-15.5); LYMPH # 2.1 10^3/uL (1.5-4.5); LYMPH % 19.5 % (24.0-44.0); MEAN CORPUSCULAR HEMOGLOBIN 29.9 pg (27.0-33.0); MEAN CORPUSCULAR HGB CONC 33.5 g/dl (32.0-36.5); MEAN CORPUSCULAR VOLUME 89.3 fl (80.0-96.0); MONO % 9.5 % (0.0-5.0); NEUTROPHILS # 7.4 10^3/uL (1.8-7.7); NEUTROPHILS % 68.3 % (36.0-66.0); PARTIAL THROMBOPLASTIN TIME 28.6 SECONDS (25.0-38.4); PLATELET COUNT, AUTOMATED 229 10^3/uL (150-450); RED BLOOD COUNT 4.11 10^6/uL (4.00-5.40); WHITE BLOOD COUNT 10.8 10^3/uL (4.0-10.0)
[2018-10-08 00:19] LABS: CALCIUM LEVEL 8.8 MG/DL (8.8-10.2); CREATININE FOR GFR 1.15 MG/DL (0.55-1.30); GLOMERULAR FILTRATION RATE 47.4 (>32); POTASSIUM SERUM 3.8 MEQ/L (3.5-5.1)
[2018-10-08] MEDS ORDERED: ARIC1TAB PO (00:27)
[2018-10-08] MEDS ORDERED: BIOT10009 PO (00:27)
[2018-10-08] MEDS ORDERED: CALC1TAB63 PO (00:27)
[2018-10-08] MEDS ORDERED: LOSA50TA5 PO (00:32)
[2018-10-08] MEDS ORDERED: ATEN25TA PO (00:32)
[2018-10-08] MEDS ORDERED: MIRT1TAB15 PO (00:32)
[2018-10-08] MEDS ORDERED: DOCU100C16 PO (00:34)
[2018-10-08] MEDS ORDERED: SIMETHICONE 80 MG CHEW TAB PO PRN (00:45)
[2018-10-08 02:00] VITALS: BP 170/74
[2018-10-08] MEDS: DONEPEZIL 5 MG TAB PO SCH ×2 (02:29→16:48)
[2018-10-08] MEDS: traMADol 50 MG TAB PO PRN ×3 (02:29→21:50)
[2018-10-08] MEDS: DOCUSATE SODIUM 100 MG CAP PO SCH ×3 (02:29→20:19)
[2018-10-08 06:00] VITALS: BP 143/65
--- NOTE | 2018-10-08 07:30 | REP ---
Clinical: Trauma. Fall. Technique: AP and cross-table lateral views of the right femur. Findings: Evidence for prior arthroplasty. No acute fracture dislocation. No significant osseous or soft tissue pathology is appreciated. Peripheral vascular disease noted. Impression: No obvious acute pathology by radiographic evaluation. Electronically Signed by Nemesio Felder MD 10/08/2018 07:20 A
--- NOTE | 2018-10-08 07:36 | REP ---
Clinical: Trauma. Fall. Technique: AP view of the pelvis with neutral and frog lateral views of the right hip. Findings: Advanced degenerative changes noted throughout the visualized lower lumbar spine, pelvis and bilateral hips. No acute fracture or dislocation identified. Impression: Osteopenia and degenerative changes. No obvious acute fracture. Electronically Signed by Nemesio Felder MD 10/08/2018 07:28 A
--- NOTE | 2018-10-08 07:39 | REP ---
Clinical: Fall . Comparison: 07/22/2018 . Findings: The mediastinum and cardiac silhouette are stable and within normal limits for portable technique. The lung bull demonstrate chronic changes including blunting to the left costophrenic angle. Subtle superimposed left basilar and right middle lobe atelectasis cannot be excluded. No obvious acute effusion. No pneumothorax. Old healed left rib fractures noted. Impression: Relatively chronic stable changes. Cannot exclude subtle basilar atelectasis. Electronically Signed by Nemesio Felder MD 10/08/2018 07:31 A
[2018-10-08 08:25] LABS: BASO % 0.4 % (0.0-1.0); EOS # 0.1 10^3/uL (0.0-0.50); EOS % 0.8 % (0.0-3.0); HEMOGLOBIN 11.8 g/dl (12.0-15.5); LYMPH # 1.2 10^3/uL (1.5-4.5); LYMPH % 15.3 % (24.0-44.0); MEAN CORPUSCULAR HEMOGLOBIN 29.1 pg (27.0-33.0); MEAN CORPUSCULAR HGB CONC 33.7 g/dl (32.0-36.5); MEAN CORPUSCULAR VOLUME 86.2 fl (80.0-96.0); MONO # 0.6 10^3/uL (0.0-0.8); MONO % 8.1 % (0.0-5.0); NEUTROPHILS # 5.8 10^3/uL (1.8-7.7); NEUTROPHILS % 74.9 % (36.0-66.0); PLATELET COUNT, AUTOMATED 203 10^3/uL (150-450); RED BLOOD COUNT 4.06 10^6/uL (4.00-5.40); WHITE BLOOD COUNT 7.8 10^3/uL (4.0-10.0)
[2018-10-08] MEDS: POTASSIUM CHLORIDE 10 MEQ SR TABLET PO SCH (08:25)
[2018-10-08] MEDS: MECLIZINE 25 MG TABLET PO SCH ×2 (08:26→16:48)
[2018-10-08] MEDS: ASCORBIC ACID 500 MG TAB PO SCH (08:26)
[2018-10-08] MEDS: atenoloL 25 MG TAB PO SCH (08:27)
[2018-10-08] MEDS: amLODIPine 10 MG TAB PO SCH (08:27)
[2018-10-08 08:49] LABS: CREATININE FOR GFR 1.09 MG/DL (0.55-1.30); GLOMERULAR FILTRATION RATE 50.4 (>32); MAGNESIUM LEVEL 2.1 MG/DL (1.8-2.4); POTASSIUM SERUM 3.8 MEQ/L (3.5-5.1)
[2018-10-08 10:00] VITALS: BP 139/63
--- NOTE | 2018-10-08 11:09 | IPNPDOC ---
Text Note Date of Service The patient was seen on 10/08/18. NOTE Subjective: Patient is an 87-year-old female with a past medical history of Hx of Dementia, HTN, TIA , who presented to the emergency room after she experience mechanical fall at home where she had sustained right-sided body injury. In the emergency room, patient had extensive imaging completed that did not reveal any signs of acute fracture or bleeding. Patient was expressing swooshing pain and was based on observation under the hospitalist service for further evaluation and treatment. Physical therapy and occupational therapy consultation was ord ered. Patient was seen and examined at the bedside. Currently, patient reports that she still expressing right-sided hip pain. Denies any chest pain, shortness breath or palpitations. Denies nausea, vomiting, abdominal pain, constipation or diarrhea. Objective: Vitals (See below) General: Lying in bed, no acute distress, comfortable, AAOx3 HEENT: NC, AT CVS: RRR, +S1S2 Lungs: Fair air entry b/l, -w/r/r Abdomen: Soft, ND, NT Extremities: - Edema, - Calf tenderness Neuro: 5/5 strength at upper extremities b/l, 5/5 strength at LLE, 4/5 strength at RLE (limited 2/2 pain) Assessment and plan: Right hip pain - likely 2/2 Hip contusion - likely 2/2 mechanical fall - Imaging study negative for acute fracture or process - c/w Pain control as ordered; Tramadol and Left Hand - c/w PT and OT; awaiting clearance for discharge home Head contusion - likely 2/2 mechanical fall - CT brain negative for acute process - Will continue with fall precautions HTN - BP well controlled - c/w Amlodipine, Atenolol Dementia - Currently appears stable - c/w Donepezil Vitamin D deficiency - c/w Vitamin D supplementation DVT prophylaxis - c/w ZEFERINO / Sequentials Code Status: - DNR VS,Fishbone, I+O VS, Fishbone, I+O Laboratory Tests 10/07/18 23:48 Red Blood Count 4.11, Mean Corpuscular Volume 89.3, Mean Corpuscular Hemoglobin 29.9, Mean Corpuscular Hemoglobin Concent 33.5, Red Cell Distribution Width 13.9, Neutrophils (%) (Auto) 68.3 H, Lymphocytes (%) (Auto) 19.5 L, Monocytes (%) (Auto) 9.5 H, Eosinophils (%) (Auto) 2.0, Basophils (%) (Auto) 0.3, Neutrophils # (Auto) 7.4, Lymphocytes # (Auto) 2.1, Monocytes # (Auto) 1.0 H, Eosinophils # (Auto) 0.2, Basophils # (Auto) 0.0, Calcium Level 8.8 10/08/18 08:14 Red Blood Count 4.06, Mean Corpuscular Volume 86.2, Mean Corpuscular Hemoglobin 29.1, Mean Corpuscular Hemoglobin Concent 33.7, Red Cell Distribution Width 13.6, Neutrophils (%) (Auto) 74.9 H, Lymphocytes (%) (Auto) 15.3 L, Monocytes (%) (Auto) 8.1 H, Eosinophils (%) (Auto) 0.8, Basophils (%) (Auto) 0.4, Neutrophils # (Auto) 5.8, Lymphocytes # (Auto) 1.2 L, Monocytes # (Auto) 0.6, Eosinophils # (Auto) 0.1, Basophils # (Auto) 0.0, Calcium Level 9.0 Vital Signs Date Time Temp Pulse Resp B/P (MAP) Pulse Ox O2 Delivery O2 Flow Rate FiO2 10/08/18 09:15 16 10/08/18 08:27 61 143/65 10/08/18 06:00 97.6 95 10/07/18 23:08 Room Air I&O- Last 24 Hours up to 6 AM 10/08/18 06:00 Intake Total 200 ml Output Total 200 ml Balance 0 ml MARISELA FRANKS MD Oct 08, 2018 11:09
[2018-10-08] MEDS ORDERED: ONDANSETRON 4MG/2ML VIAL (J2405) IV PRN (13:15)
[2018-10-08 14:00] VITALS: BP 138/65
[2018-10-08 18:00] VITALS: BP 145/68
[2018-10-08 19:31] LABS: APPEARANCE, URINE HAZY (CLEAR); BACTERIA, URINE AUTO 3+ (NEGATIVE); BILIRUBIN, URINE AUTO NEGATIVE (NEGATIVE); BLOOD, URINE BLOOD NEGATIVE (NEGATIVE); COLOR, URINE YELLOW (YELLOW); GLUCOSE, URINE (UA) AUTO NEGATIVE (NEGATIVE); KETONE, URINE AUTO NEGATIVE (NEGATIVE); LEUKOCYTE ESTERASE, URINE AUTO 3+ (NEGATIVE); MUCUS, URINE SMALL (NEGATIVE); NITRITE, URINE AUTO NEGATIVE (NEGATIVE); PROTEIN, URINE AUTO NEGATIVE (NEGATIVE); RBC, URINE AUTO 6 /HPF (0-3); SPECIFIC GRAVITY URINE AUTO 1.009 (1.002-1.035); SQUAMOUS EPITHELIAL CELL UR AU 0 /HPF (0-6); UROBILINOGEN, URINE AUTO 0.2 mg/dL (0.0-2.0); WBC, URINE AUTO 178 /HPF (0-3)
[2018-10-08] MEDS: ACETAMINOPHEN TAB 650MG DOSE (2X325MG) PO PRN (20:20)
[2018-10-08 22:00] VITALS: BP 154/63
[2018-10-09] MEDS: ACETAMINOPHEN TAB 650MG DOSE (2X325MG) PO PRN ×2 (00:40→20:22)
[2018-10-09 02:00] VITALS: BP 144/71
[2018-10-09 06:00] VITALS: BP 164/78
[2018-10-09 07:31] LABS: BASO % 0.4 % (0.0-1.0); EOS # 0.1 10^3/uL (0.0-0.50); EOS % 1.4 % (0.0-3.0); HEMATOCRIT 33.9 % (36.0-47.0); HEMOGLOBIN 11.9 g/dl (12.0-15.5); LYMPH # 1.9 10^3/uL (1.5-4.5); LYMPH % 23.7 % (24.0-44.0); MEAN CORPUSCULAR HEMOGLOBIN 30.4 pg (27.0-33.0); MEAN CORPUSCULAR HGB CONC 35.1 g/dl (32.0-36.5); MEAN CORPUSCULAR VOLUME 86.7 fl (80.0-96.0); MONO # 1.1 10^3/uL (0.0-0.8); MONO % 13.7 % (0.0-5.0); NEUTROPHILS # 4.8 10^3/uL (1.8-7.7); NEUTROPHILS % 60.7 % (36.0-66.0); PLATELET COUNT, AUTOMATED 196 10^3/uL (150-450); RED BLOOD COUNT 3.91 10^6/uL (4.00-5.40); WHITE BLOOD COUNT 7.9 10^3/uL (4.0-10.0)
[2018-10-09 07:50] LABS: BLOOD UREA NITROGEN 12 MG/DL (7-18); CALCIUM LEVEL 8.5 MG/DL (8.8-10.2); CARBON DIOXIDE LEVEL 27 MEQ/L (21-32); CHLORIDE LEVEL 107 MEQ/L (98-107); CREATININE FOR GFR 0.78 MG/DL (0.55-1.30); GLOMERULAR FILTRATION RATE > 60.0 (>32); GLUCOSE, FASTING 99 MG/DL (70-100); MAGNESIUM LEVEL 1.8 MG/DL (1.8-2.4); POTASSIUM SERUM 3.6 MEQ/L (3.5-5.1); SODIUM LEVEL 141 MEQ/L (136-145)
[2018-10-09] MEDS: POTASSIUM CHLORIDE 10 MEQ SR TABLET PO SCH (08:22)
[2018-10-09] MEDS: ASCORBIC ACID 500 MG TAB PO SCH (08:23)
[2018-10-09] MEDS: atenoloL 25 MG TAB PO SCH (08:23)
[2018-10-09] MEDS: MECLIZINE 25 MG TABLET PO SCH ×2 (08:23→18:12)
[2018-10-09] MEDS: traMADol 50 MG TAB PO PRN (08:24)
[2018-10-09] MEDS: amLODIPine 10 MG TAB PO SCH (08:25)
[2018-10-09] MEDS ORDERED: NITROFURANTOIN (MACROBID) 100 MG CAP PO SCH (09:00)
[2018-10-09] MEDS: DOCUSATE SODIUM 100 MG CAP PO SCH ×2 (09:00→20:22)
--- NOTE | 2018-10-09 10:09 | IPNPDOC ---
Text Note Date of Service The patient was seen on 10/09/18. NOTE Subjective: Patient is an 87-year-old female with a past medical history of Hx of Dementia, HTN, TIA , who presented to the emergency room after she experience mechanical fall at home where she had sustained right-sided body injury. In the emergency room, patient had extensive imaging completed that did not reveal any signs of acute fracture or bleeding. Patient was expressing swooshing pain and was based on observation under the hospitalist service for further evaluation and treatment. Physical therapy and occupational therapy consultation was ord ered. Patient was seen and examined at the bedside. . Currently, patient hasn't been very slow to progress with physical therapy. Patient completed urinary discomfort yesterday and was found to have a positive urinalysis. I have advised that we have started antibiotics. Patient denies chest pain, shortness breath, palpitations. Denies any abdominal pain or diarrhea. Objective: Vitals (See below) General: Lying in bed, no acute distress, comfortable, AAOx3 HEENT: NC, AT CVS: RRR, +S1S2 Lungs: Air entry is fair bilaterally, without auscultated rhonchi, rales or wheezing Abdomen: Soft, nondistended, without tenderness Extremities: Lower extremities are free of any edema, - Calf tenderness Assessment and plan: Right hip pain - likely 2/2 Hip contusion - likely 2/2 mechanical fall - Imaging study negative for acute fracture or process - c/w Pain control as ordered; Tramadol and [place] - c/w PT and OT; awaiting clearance for discharge home Dysuria - likely 2/2 UTI - Urinalysis is consistent with urinary tract infection - Urine cultures pending - Will start Levaquin for 3 days Head contusion - likely 2/2 mechanical fall - CT brain negative for acute process - Will continue with fall precautions HTN - BP well controlled - c/w Amlodipine, Atenolol Dementia - Currently appears stable - c/w Donepezil Vitamin D deficiency - c/w Vitamin D supplementation DVT prophylaxis - c/w ZEFERINO / Sequentials Code Status: - DNR Disposition: - Discharge once cleared PT VS,Fishbone, I+O VS, Fishbone, I+O Laboratory Tests 10/09/18 07:22 Red Blood Count 3.91 L, Mean Corpuscular Volume 86.7, Mean Corpuscular Hemoglobin 30.4, Mean Corpuscular Hemoglobin Concent 35.1, Red Cell Distribution Width 13.3, Neutrophils (%) (Auto) 60.7, Lymphocytes (%) (Auto) 23.7 L, Monocytes (%) (Auto) 13.7 H, Eosinophils (%) (Auto) 1.4, Basophils (%) (Auto) 0. 4, Neutrophils # (Auto) 4.8, Lymphocytes # (Auto) 1.9, Monocytes # (Auto) 1.1 H, Eosinophils # (Auto) 0.1, Basophils # (Auto) 0.0, Calcium Level 8.5 L Vital Signs Date Time Temp Pulse Resp B/P (MAP) Pulse Ox O2 Delivery O2 Flow Rate FiO2 10/09/18 08:24 16 10/09/18 08:23 65 164/78 10/09/18 06:00 98.7 95 10/07/18 23:08 Room Air I&O- Last 24 Hours up to 6 AM 10/09/18 06:00 Intake Total 1260 ml Output Total 600 ml Balance 660 ml MARISELA FRANKS MD Oct 09, 2018 10:08
[2018-10-09] MEDS: LevoFLOXacin 250 MG TABLET PO SCH (12:07)
[2018-10-09 14:00] VITALS: BP 148/74
[2018-10-09 18:00] VITALS: BP 215/86
[2018-10-09] MEDS: DONEPEZIL 5 MG TAB PO SCH (18:12)
[2018-10-09] MEDS: RAMELTEON 8 MG TAB (ROZEREM) PO SCH (20:22)
[2018-10-09 22:00] VITALS: BP 149/75
[2018-10-10] MEDS: LevoFLOXacin 250 MG TABLET PO SCH (05:40)
[2018-10-10 06:00] VITALS: BP 150/71
[2018-10-10 07:11] LABS: BASO % 0.2 % (0.0-1.0); EOS % 0.5 % (0.0-3.0); HEMOGLOBIN 12.3 g/dl (12.0-15.5); LYMPH # 1.5 10^3/uL (1.5-4.5); LYMPH % 18.3 % (24.0-44.0); MEAN CORPUSCULAR HGB CONC 34.2 g/dl (32.0-36.5); MEAN CORPUSCULAR VOLUME 84.9 fl (80.0-96.0); MONO # 1.1 10^3/uL (0.0-0.8); MONO % 13.7 % (0.0-5.0); NEUTROPHILS # 5.4 10^3/uL (1.8-7.7); NEUTROPHILS % 66.8 % (36.0-66.0); PLATELET COUNT, AUTOMATED 228 10^3/uL (150-450); RED BLOOD COUNT 4.24 10^6/uL (4.00-5.40)
[2018-10-10 07:40] LABS: BLOOD UREA NITROGEN 10 MG/DL (7-18); CALCIUM LEVEL 8.8 MG/DL (8.8-10.2); CARBON DIOXIDE LEVEL 28 MEQ/L (21-32); CHLORIDE LEVEL 103 MEQ/L (98-107); CREATININE FOR GFR 0.83 MG/DL (0.55-1.30); GLOMERULAR FILTRATION RATE > 60.0 (>32); GLUCOSE, FASTING 108 MG/DL (70-100); POTASSIUM SERUM 3.6 MEQ/L (3.5-5.1); SODIUM LEVEL 138 MEQ/L (136-145)
[2018-10-10] MEDS ORDERED: VITAMIN D 50,000 UNITS CAPSULE (ERGOCALCIFEROL 1.25MG) PO SCH (09:00)
[2018-10-10] MEDS: ASCORBIC ACID 500 MG TAB PO SCH (09:16)
[2018-10-10] MEDS: MECLIZINE 25 MG TABLET PO SCH ×2 (09:17→17:11)
[2018-10-10] MEDS: POTASSIUM CHLORIDE 10 MEQ SR TABLET PO SCH (09:17)
[2018-10-10] MEDS: DOCUSATE SODIUM 100 MG CAP PO SCH ×2 (09:17→21:43)
[2018-10-10] MEDS: traMADol 50 MG TAB PO PRN ×2 (09:18→17:49)
[2018-10-10] MEDS: amLODIPine 10 MG TAB PO SCH (09:20)
[2018-10-10] MEDS: atenoloL 25 MG TAB PO SCH (09:21)
--- NOTE | 2018-10-10 10:00 | IPNPDOC ---
Text Note Date of Service The patient was seen on 10/10/18. NOTE Subjective: Patient is an 87-year-old female with a past medical history of Hx of Dementia, HTN, TIA , who presented to the emergency room after she experience mechanical fall at home where she had sustained right-sided body injury. In the emergency room, patient had extensive imaging completed that did not reveal any signs of acute fracture or bleeding. Patient was expressing swooshing pain and was based on observation under the hospitalist service for further evaluation and treatment. Physical therapy and occupational therapy consultation was ord ered. Patient was seen and examined at the bedside. Patient reports that they have been working with physical therapy. Patient denied chest pain, shortness breath or palpitations. He still reports a lot of right hip pain. Denies nausea, vomiting or diarrhea. Objective: Vitals (See below) General: Lying in bed, no acute distress, comfortable, AAOx3 HEENT: NC, AT CVS: RRR, +S1S2 Lungs: Air entry is fair bilaterally, there does not appear to be any auscultated evidence of rhonchi, rales or wheezing Abdomen: Soft without distention or tenderness Extremities: No evidence of edema at lower extremities, - Calf tenderness Assessment and plan: Right hip pain - likely 2/2 Hip contusion - likely 2/2 mechanical fall - Imaging study negative for acute fracture or process - c/w Pain control as ordered; Tramadol and [place] - c/w PT and OT; awaiting clearance for discharge home - Patient has been slow to progress with PT; will likely require subacute rehabilitation Dysuria - likely 2/2 UTI - Urinalysis is consistent with urinary tract infection - Urine cultures pending - c/w Levaquin for (Day #2 of 3) Head contusion - likely 2/2 mechanical fall - CT brain negative for acute process - Will continue with fall precautions HTN - BP well controlled - c/w Amlodipine, Atenolol Dementia - Currently appears stable - c/w Donepezil Vitamin D deficiency - c/w Vitamin D supplementation DVT prophylaxis - c/w ZEFERINO / Sequentials Code Status: - DNR Disposition: - Discharge once cleared PT - Likely will need sub-acute rehab VS,Fishbone, I+O VS, Fishbone, I+O Laboratory Tests 10/10/18 06:35 Red Blood Count 4.24, Mean Corpuscular Volume 84.9, Mean Corpuscular Hemoglobin 29.0, Mean Corpuscular Hemoglobin Concent 34.2, Red Cell Distribution Width 13.3, Neutrophils (%) (Auto) 66.8 H, Lymphocytes (%) (Auto) 18.3 L, Monocytes (%) (Auto) 13.7 H, Eosinophils (%) (Auto) 0.5, Basophils (%) (Auto) 0.2, Neutrophils # (Auto) 5.4, Lymphocytes # (Auto) 1.5, Monocytes # (Auto) 1.1 H, Eosinophils # (Auto) 0.0, Basophils # (Auto) 0.0, Calcium Level 8.8 Vital Signs Date Time Temp Pulse Resp B/P (MAP) Pulse Ox O2 Delivery O2 Flow Rate FiO2 10/10/18 09:21 80 138/88 10/10/18 09:18 20 10/10/18 06:00 99.2 96 10/07/18 23:08 Room Air I&O- Last 24 Hours up to 6 AM 10/10/18 06:00 Intake Total 1320 ml Output Total 1250 ml Balance 70 ml MARISELA FRANKS MD Oct 10, 2018 10:00
[2018-10-10 14:00] VITALS: BP 122/68
[2018-10-10] MEDS: DONEPEZIL 5 MG TAB PO SCH (17:11)
[2018-10-10] MEDS: RAMELTEON 8 MG TAB (ROZEREM) PO SCH (21:44)
[2018-10-10] MEDS: ACETAMINOPHEN TAB 650MG DOSE (2X325MG) PO PRN (21:44)
[2018-10-10 22:00] VITALS: BP 133/67
[2018-10-11] MEDS: LevoFLOXacin 250 MG TABLET PO SCH (05:49)
[2018-10-11 06:00] VITALS: BP 143/67
[2018-10-11 06:02] LABS: BASO % 0.4 % (0.0-1.0); EOS # 0.1 10^3/uL (0.0-0.50); EOS % 1.8 % (0.0-3.0); HEMATOCRIT 33.4 % (36.0-47.0); HEMOGLOBIN 11.4 g/dl (12.0-15.5); LYMPH # 1.7 10^3/uL (1.5-4.5); LYMPH % 25.6 % (24.0-44.0); MEAN CORPUSCULAR HEMOGLOBIN 29.3 pg (27.0-33.0); MEAN CORPUSCULAR HGB CONC 34.1 g/dl (32.0-36.5); MEAN CORPUSCULAR VOLUME 85.9 fl (80.0-96.0); MONO % 14.4 % (0.0-5.0); NEUTROPHILS # 3.8 10^3/uL (1.8-7.7); NEUTROPHILS % 57.5 % (36.0-66.0); PLATELET COUNT, AUTOMATED 213 10^3/uL (150-450); RED BLOOD COUNT 3.89 10^6/uL (4.00-5.40); WHITE BLOOD COUNT 6.7 10^3/uL (4.0-10.0)
[2018-10-11 06:27] LABS: CALCIUM LEVEL 8.6 MG/DL (8.8-10.2); CREATININE FOR GFR 0.95 MG/DL (0.55-1.30); GLOMERULAR FILTRATION RATE 59.1 (>32); MAGNESIUM LEVEL 2.1 MG/DL (1.8-2.4); POTASSIUM SERUM 3.7 MEQ/L (3.5-5.1)
[2018-10-11] MEDS: ASCORBIC ACID 500 MG TAB PO SCH (08:27)
[2018-10-11] MEDS: amLODIPine 10 MG TAB PO SCH (08:27)
[2018-10-11] MEDS: MECLIZINE 25 MG TABLET PO SCH ×2 (08:27→16:26)
[2018-10-11] MEDS: POTASSIUM CHLORIDE 10 MEQ SR TABLET PO SCH (08:27)
[2018-10-11] MEDS: atenoloL 25 MG TAB PO SCH (08:28)
[2018-10-11] MEDS: DOCUSATE SODIUM 100 MG CAP PO SCH ×3 (08:28→20:25)
[2018-10-11] MEDS: traMADol 50 MG TAB PO PRN (10:18)
--- NOTE | 2018-10-11 11:59 | IPNPDOC ---
Date Seen The patient was seen on 10/11/18. Progress Note SUBJECTIVE: Ms. Hunter is a 87-year-old female with a past medical history of vascular dementia, HTN, TIA, who presented to the emergency room after she experienced a mechanical fall at home where she had sustained a right- sided body injury. In the emergency room, patient had extensive imaging completed that did not reveal any signs of acute fracture or bleeding. Patient was expressing swooshing pain and was placed on observation under the hospitalist service for further evaluation and treatment. Physical therapy and occupational therapy consultation was ordered. Ms. Hunter was seen on bedside rounds this morning. She reports that she is feeling much better from yesterday and has an improved appetite, however she is a bit sleepy. She endorses some crampy abdominal pain this morning after breakfast. She endorses some tenderness to palpation on her head where she hit it on the ground during her fall that is unchanged from yesterday. She denies any right hip pain today. She denies cp, sob, palpitations, headache, dizziness, diarrhea, constipation, and nausea/vomiting. OBJECTIVE PHYSICAL EXAMINATION: General: Patient is examined lying in bed, no acute distress, comfortable, AAOx3 HEENT: NC, AT, moist mucous membranes CVS: RRR, +S1S2, no murmurs, gallops or rubs appreciated Lungs: Air entry is fair bilaterally, there does not appear to be any auscultated evidence of rhonchi, rales or wheezing Abdomen: Soft without distention or tenderness to light or deep palpation, normal bowel sounds in all four quadrants, no rebound, rigidity or guarding Extremities: No evidence of edema at lower extremities, - Calf tenderness LABORATORY DATA, IMAGING STUDIES, MICROBIOLOGY: Please see below. IMAGIN. Head CT: There is moderate age-related parenchymal volume loss. White matter changes are demonstrated in the subcortical, centrum semiovale and periventricular white matter consistent with small vessel white matter angiopathic gliosis. 2. Cervical Spine CT: Stable degenerative spondylosis. No acute findings. 3. Hip Pelvis X-ray: Osteopenia and degenerative changes. No obvious acute fracture. 4. Femur X-ray: No obvious acute pathology by radiographic evaluation. 5. Extremity CT: Soft tissue edema lateral to the greater trochanter may be related to trochanteric bursitis or post traumatic. No fracture. 6. Chest X-ray: Relatively chronic stable changes. Cannot exclude subtle basilar atelectasis. DVT prophylaxis ordered?: c/w ZEFERINO / Sequentials ASSESSMENT AND PLAN: This is a 87-year-old female with a past medical history of vascular dementia, HTN, and TIA who presented to the emergency room after experiencing a mechanical fall. She was found to have soft tissue edema lateral to the greater trochanter but is negative for acute fracture. PROBLEMS: 1. Right hip pain - likely 2/2 Hip contusion - likely 2/2 mechanical fall - Imaging study negative for acute fracture or process - c/w Pain control as ordered; Tramadol and [place] - c/w PT and OT; awaiting clearance for discharge home - Patient has been slow to progress with PT - Currently waiting for a bed in subacute rehabilitation 2. Dysuria - likely 2/2 UTI - Urinalysis is consistent with urinary tract infection - Urine cultures negative - s/p Levaquin 3. Head contusion - likely 2/2 mechanical fall - CT brain negative for acute process - Will continue with fall precautions 4. HTN - BP well controlled - c/w Amlodipine, Atenolol 5. Dementia - Currently appears stable - c/w Donepezil 6. Vitamin D deficiency - c/w Vitamin D supplementation 7. DVT prophylaxis - c/w ZEFERINO / Sequentials Code Status: - DNR Disposition: - Patient is stable and improving clinically today. She reports no right hip pain this morning. Plan to continue to work with PT and will discharge once cleared. Currently waiting for a bed in subacute rehabilitation unit. VS, I&O, 24H, Fishbone Vital Signs/I&O Vital Signs Date Time Temp Pulse Resp B/P (MAP) Pulse Ox O2 Delivery O2 Flow Rate FiO2 10/11/18 10:48 16 10/11/18 08:28 59 143/67 10/11/18 06:00 98.7 94 10/07/18 23:08 Room Air I&O- Last 24 Hours up to 6 AM 10/11/18 06:00 Intake Total 440 ml Output Total 950 ml Balance -510 ml Laboratory Data 24H LABS Laboratory Tests 2 10/11/18 05:23: Immature Granulocyte % (Auto) 0.3, White Blood Count 6.7, Red Blood Count 3.89L, Hemoglobin 11.4L, Hematocrit 33.4L, Mean Corpuscular Volume 85.9, Mean Corpuscular Hemoglobin 29.3, Mean Corpuscular Hemoglobin Concent 34.1, Red Cell Distribution Width 13.5, Platelet Count 213, Neutrophils (%) (Auto) 57.5, Lymphocytes (%) (Auto) 25.6, Monocytes (%) (Auto) 14.4H, Eosinophils (%) (Auto) 1.8, Basophils (%) (Auto) 0.4, Neutrophils # (Auto) 3.8, Lymphocytes # (Auto) 1.7, Monocytes # (Auto) 1.0H, Eosinophils # (Auto) 0.1, Basophils # (Auto) 0.0, Nucleated Red Blood Cells % (auto) 0.0, Anion Gap 7L, Glomerular Filtration Rate 59.1, Blood Urea Nitrogen 16#, Creatinine 0.95, Sodium Level 139, Potassium Level 3.7, Chloride Level 105, Carbon Dioxide Level 27, Calcium Level 8.6L, Magnesium Level 2.1 CBC/BMP Laboratory Tests 10/11/18 05:23 Red Blood Count 3.89 L, Mean Corpuscular Volume 85.9, Mean Corpuscular Hemoglobin 29.3, Mean Corpuscular Hemoglobin Concent 34.1, Red Cell Distribution Width 13.5, Neutrophils (%) (Auto) 57.5, Lymphocytes (%) (Auto) 25.6, Monocytes (%) (Auto) 14.4 H, Eosinophils (%) (Auto) 1.8, Basophils (%) (Auto) 0.4, Neutrophils # (Auto) 3.8, Lymphocytes # (Auto) 1.7, Monocytes # (Auto) 1.0 H, Eosinophils # (Auto) 0.1, Basophils # (Auto) 0.0, Calcium Level 8.6 L Microbiology Microbiology 10/09/18 Urine Culture - Final, Complete GME ATTESTATION GME ATTESTATION My faculty preceptor for this patient encounter was physically present during the encounter and was fully available. All aspects of the patient interview, examination, medical decision making process, and medical care plan development were reviewed and approved by the faculty preceptor. The faculty preceptor is aware and concurs with the plan as stated in the body of this note and will attest to such by his/her cosignature. ATTENDING NOTE I, Elissa Franks, have independently examined this patient and performed my own physical exam, as well as reviewed the documentation and edited where necessary. I have discussed in detail with the resident / student the findings and plan of treatment as documented by the resident / student and edited their note. I agree with their findings and treatment plan and have edited their documentation. I will continue to follow the patient during this hospital stay. BEVERLY MOSLEY OMS-3 Oct 11, 2018 11:59 ELISSA FRANKS MD Oct 11, 2018 14:54
[2018-10-11 14:00] VITALS: BP 128/69
[2018-10-11] MEDS: DONEPEZIL 5 MG TAB PO SCH (16:26)
[2018-10-11] MEDS: ACETAMINOPHEN TAB 650MG DOSE (2X325MG) PO PRN ×2 (16:27→22:14)
[2018-10-11] MEDS: RAMELTEON 8 MG TAB (ROZEREM) PO SCH (20:25)
[2018-10-11 22:00] VITALS: BP 148/78
[2018-10-12 06:00] VITALS: BP 142/80
[2018-10-12 06:17] LABS: BASO % 0.5 % (0.0-1.0); EOS # 0.2 10^3/uL (0.0-0.50); EOS % 3.4 % (0.0-3.0); HEMATOCRIT 35.2 % (36.0-47.0); HEMOGLOBIN 12.1 g/dl (12.0-15.5); LYMPH # 2.1 10^3/uL (1.5-4.5); MEAN CORPUSCULAR HEMOGLOBIN 29.4 pg (27.0-33.0); MEAN CORPUSCULAR HGB CONC 34.4 g/dl (32.0-36.5); MEAN CORPUSCULAR VOLUME 85.6 fl (80.0-96.0); MONO # 0.9 10^3/uL (0.0-0.8); MONO % 13.6 % (0.0-5.0); PLATELET COUNT, AUTOMATED 233 10^3/uL (150-450); RED BLOOD COUNT 4.11 10^6/uL (4.00-5.40); WHITE BLOOD COUNT 6.3 10^3/uL (4.0-10.0)
[2018-10-12 06:37] LABS: BLOOD UREA NITROGEN 21 MG/DL (7-18); CALCIUM LEVEL 8.6 MG/DL (8.8-10.2); CARBON DIOXIDE LEVEL 24 MEQ/L (21-32); CHLORIDE LEVEL 106 MEQ/L (98-107); CREATININE FOR GFR 0.92 MG/DL (0.55-1.30); GLOMERULAR FILTRATION RATE > 60.0 (>32); GLUCOSE, FASTING 91 MG/DL (70-100); MAGNESIUM LEVEL 2.1 MG/DL (1.8-2.4); POTASSIUM SERUM 3.4 MEQ/L (3.5-5.1); SODIUM LEVEL 139 MEQ/L (136-145)
[2018-10-12] MEDS: ACETAMINOPHEN TAB 650MG DOSE (2X325MG) PO PRN ×3 (08:20→22:01)
[2018-10-12] MEDS: ASCORBIC ACID 500 MG TAB PO SCH (08:20)
[2018-10-12] MEDS: POTASSIUM CHLORIDE 10 MEQ SR TABLET PO SCH (08:20)
[2018-10-12] MEDS: DOCUSATE SODIUM 100 MG CAP PO SCH ×2 (08:21→22:01)
[2018-10-12] MEDS: amLODIPine 10 MG TAB PO SCH (08:21)
[2018-10-12] MEDS: atenoloL 25 MG TAB PO SCH (08:22)
[2018-10-12] MEDS: MECLIZINE 25 MG TABLET PO SCH ×2 (08:22→16:23)
[2018-10-12] MEDS ORDERED: POTASSIUM CHLORIDE 10 MEQ SR TABLET PO ONE (10:00)
[2018-10-12 14:00] VITALS: BP 133/76
--- NOTE | 2018-10-12 14:51 | IPNPDOC ---
Date Seen The patient was seen on 10/12/18. Progress Note SUBJECTIVE: Ms. Hunter is a 87-year-old female with a past medical history of vascular dementia, HTN, TIA, who presented to the emergency room after she experienced a mechanical fall at home where she had sustained a right- sided body injury. In the emergency room, patient had extensive imaging completed that did not reveal any signs of acute fracture or bleeding. Patient was expressing swooshing pain and was placed on observation under the hospitalist service for further evaluation and treatment. Physical therapy and occupational therapy consultation was ordered. Ms. Hunter was seen on bedside rounds this morning eating breakfast. She reports she is feeling much better, is continuing to have an improved appetite and is much less fatigued compared to yesterday. The crampy abdominal pain she experienced yesterday has resolved. She states that she is having minimal pain in her right hip today and that the tenderness to palpation on her head where she had sustained the fall has improved compared to yesterday. She denies cp, sob, palpitations, headache, dizziness, diarrhea, constipation, and nausea/vomiting. OBJECTIVE PHYSICAL EXAMINATION: VITAL SIGNS: Please see below. General: Patient is examined sitting in bed eating breakfast, no acute distress, comfortable, AAOx3 HEENT: NC, AT, moist mucous membranes CVS: RRR, +S1S2, no murmurs, gallops or rubs appreciated Lungs: Air entry is fair bilaterally, there does not appear to be any auscultated evidence of rhonchi, rales or wheezing Abdomen: Soft without distention or tenderness to light or deep palpation, normal bowel sounds in all four quadrants, no rebound, rigidity or guarding Extremities: No evidence of edema at lower extremities, - Calf tenderness, no significant swelling or tenderness to palpation over the right hip LABORATORY DATA, IMAGING STUDIES, MICROBIOLOGY: Please see below. IMAGIN. Head CT: There is moderate age-related parenchymal volume loss. White matter changes are demonstrated in the subcortical, centrum semiovale and periventricular white matter consistent with small vessel white matter angiopathic gliosis. 2. Cervical Spine CT: Stable degenerative spondylosis. No acute findings. 3. Hip Pelvis X-ray: Osteopenia and degenerative changes. No obvious acute fracture. 4. Femur X-ray: No obvious acute pathology by radiographic evaluation. 5. Extremity CT: Soft tissue edema lateral to the greater trochanter may be related to trochanteric bursitis or post traumatic. No fracture. 6. Chest X-ray: Relatively chronic stable changes. Cannot exclude subtle basilar atelectasis. DVT prophylaxis ordered?: c/w ZEFERINO / Sequentials ASSESSMENT AND PLAN: This is a 87-year-old female with a past medical history of vascular dementia, HTN, and TIA who presented to the emergency room after experiencing a mechanical fall. She was found to have soft tissue edema lateral to the greater trochanter but is negative for acute fracture. PROBLEMS: 1. Right hip pain - likely 2/2 Hip contusion - likely 2/2 mechanical fall - Imaging study negative for acute fracture or process - c/w Pain control as ordered; Tramadol and [place] - c/w PT and OT; awaiting clearance for discharge home - Patient has been slow to progress with PT - Currently waiting for a bed in subacute rehabilitation - Spoke with social group worker, the family is requesting subacute rehabilitation at [place] due to consideration prior to admission of placement at that facility 2. Dysuria - likely 2/2 UTI - Urinalysis is consistent with urinary tract infection - Urine cultures negative - s/p Levaquin 3. Head contusion - likely 2/2 mechanical fall - CT brain negative for acute process - Will continue with fall precautions 4. Hypokalemia - Supplemented K today 5. HTN - BP well controlled - c/w Amlodipine, Atenolol 6. Dementia - Currently appears stable - c/w Donepezil 7. Vitamin D deficiency - c/w Vitamin D supplementation 8. DVT prophylaxis - c/w ZEFERINO / Sequentials Code Status: - DNR Disposition: - Patient is stable and improving clinically today. She has increased appetite and energy levels compared to yesterday. She reports minimal right hip pain this morning. Plan to continue to work with PT and will discharge once cleared. Currently waiting for a bed in subacute rehabilitation unit. Spoke with social group worker, her family is requesting subacute rehabilitation at [place] due to consideration prior to admission of placement at that facility. I saw and evaluated the patient. I agree with the findings and plan of care as documented in the above note VS, I&O, 24H, Fishbone Vital Signs/I&O Vital Signs Date Time Temp Pulse Resp B/P (MAP) Pulse Ox O2 Delivery O2 Flow Rate FiO2 10/12/18 08:22 68 142/80 10/12/18 06:00 98.5 18 92 10/07/18 23:08 Room Air I&O- Last 24 Hours up to 6 AM 10/12/18 06:00 Intake Total 1270 ml Output Total 900 ml Balance 370 ml Laboratory Data 24H LABS Laboratory Tests 2 10/12/18 05:12: Immature Granulocyte % (Auto) 0.5, White Blood Count 6.3, Red Blood Count 4.11, Hemoglobin 12.1, Hematocrit 35.2L, Mean Corpuscular Volume 85.6, Mean Corpuscular Hemoglobin 29.4, Mean Corpuscular Hemoglobin Concent 34.4, Red Cell Distribution Width 13.4, Platelet Count 233, Neutrophils (%) (Auto) 48.0, Lymphocytes (%) (Auto) 34.0, Monocytes (%) (Auto) 13.6H, Eosinophils (%) (Auto) 3.4H, Basophils (%) (Auto) 0.5, Neutrophils # (Auto) 3.0, Lymphocytes # (Auto) 2.1, Monocytes # (Auto) 0.9H, Eosinophils # (Auto) 0.2, Basophils # (Auto) 0.0, Nucleated Red Blood Cells % (auto) 0.0, Anion Gap 9, Glomerular Filtration Rate > 60.0, Blood Urea Nitrogen 21H, Creatinine 0.92, Sodium Level 139, Potassium Level 3.4L, Chloride Level 106, Carbon Dioxide Level 24, Calcium Level 8.6L, Magnesium Level 2.1 CBC/BMP Laboratory Tests 10/12/18 05:12 Red Blood Count 4.11, Mean Corpuscular Volume 85.6, Mean Corpuscular Hemoglobin 29.4, Mean Corpuscular Hemoglobin Concent 34.4, Red Cell Distribution Width 13.4, Neutrophils (%) (Auto) 48.0, Lymphocytes (%) (Auto) 34.0, Monocytes (%) (Auto) 13.6 H, Eosinophils (%) (Auto) 3.4 H, Basophils (%) (Auto) 0.5, Neutrophils # (Auto) 3.0, Lymphocytes # (Auto) 2.1, Monocytes # (Auto) 0.9 H, Eosinophils # (Auto) 0.2, Basophils # (Auto) 0.0, Calcium Level 8.6 L Microbiology Microbiology 10/09/18 Urine Culture - Final, Complete BEVERLY MOSLEY OMS-3 Oct 12, 2018 14:51 TREV KAPOOR MD Oct 12, 2018 16:18
[2018-10-12] MEDS: DONEPEZIL 5 MG TAB PO SCH (16:23)
[2018-10-12 22:00] VITALS: BP 134/71
[2018-10-12] MEDS: RAMELTEON 8 MG TAB (ROZEREM) PO SCH (22:01)
[2018-10-13] MEDS: ACETAMINOPHEN TAB 650MG DOSE (2X325MG) PO PRN ×2 (03:38→20:37)
[2018-10-13 06:00] VITALS: BP 154/80
[2018-10-13 06:47] LABS: BASO % 0.5 % (0.0-1.0); EOS # 0.2 10^3/uL (0.0-0.50); EOS % 3.6 % (0.0-3.0); HEMATOCRIT 34.4 % (36.0-47.0); HEMOGLOBIN 11.9 g/dl (12.0-15.5); LYMPH # 1.7 10^3/uL (1.5-4.5); LYMPH % 31.3 % (24.0-44.0); MEAN CORPUSCULAR HEMOGLOBIN 30.3 pg (27.0-33.0); MEAN CORPUSCULAR HGB CONC 34.6 g/dl (32.0-36.5); MEAN CORPUSCULAR VOLUME 87.5 fl (80.0-96.0); MONO # 0.7 10^3/uL (0.0-0.8); MONO % 12.9 % (0.0-5.0); NEUTROPHILS # 2.8 10^3/uL (1.8-7.7); NEUTROPHILS % 51.5 % (36.0-66.0); PLATELET COUNT, AUTOMATED 236 10^3/uL (150-450); RED BLOOD COUNT 3.93 10^6/uL (4.00-5.40); WHITE BLOOD COUNT 5.5 10^3/uL (4.0-10.0)
[2018-10-13 07:11] LABS: BLOOD UREA NITROGEN 20 MG/DL (7-18); CALCIUM LEVEL 8.8 MG/DL (8.8-10.2); CARBON DIOXIDE LEVEL 25 MEQ/L (21-32); CHLORIDE LEVEL 108 MEQ/L (98-107); CREATININE FOR GFR 0.84 MG/DL (0.55-1.30); GLOMERULAR FILTRATION RATE > 60.0 (>32); GLUCOSE, FASTING 91 MG/DL (70-100); MAGNESIUM LEVEL 2.1 MG/DL (1.8-2.4); POTASSIUM SERUM 3.6 MEQ/L (3.5-5.1); SODIUM LEVEL 140 MEQ/L (136-145)
[2018-10-13] MEDS: DOCUSATE SODIUM 100 MG CAP PO SCH ×2 (08:44→20:37)
[2018-10-13] MEDS: ASCORBIC ACID 500 MG TAB PO SCH (08:44)
[2018-10-13] MEDS: MECLIZINE 25 MG TABLET PO SCH ×2 (08:44→16:43)
[2018-10-13] MEDS: POTASSIUM CHLORIDE 10 MEQ SR TABLET PO SCH (08:44)
[2018-10-13] MEDS: atenoloL 25 MG TAB PO SCH (08:46)
[2018-10-13] MEDS: amLODIPine 10 MG TAB PO SCH (08:47)
[2018-10-13 14:00] VITALS: BP 131/70
--- NOTE | 2018-10-13 15:37 | IPNPDOC ---
Date Seen The patient was seen on 10/13/18. Progress Note SUBJECTIVE: Ms. Hunter is a 87-year-old female with a past medical history of vascular dementia, HTN, TIA, who presented to the emergency room after she experienced a mechanical fall at home where she had sustained a right- sided body injury. In the emergency room, patient had extensive imaging completed that did not reveal any signs of acute fracture or bleeding. Patient was expressing swooshing pain and was placed on observation under the hospitalist service for further evaluation and treatment. Physical therapy and occupational therapy consultation was ordered. Ms. Hunter was seen on bedside rounds this morning sleeping. She reports she is feeling much better, is continuing to have an improved appetite and is much less fatigued compared to admission. She states that she is having minimal pain in her right hip today with some pain during movement. The tenderness to palpation on her head where she had sustained the fall is continuing to improve. She denies cp, sob, palpitations, headache, dizziness, diarrhea, constipation, and nausea/vomiting. She states that she has been working with PT and has been progressing. OBJECTIVE PHYSICAL EXAMINATION: VITAL SIGNS: Please see below. General: Patient is examined laying in bed, no acute distress, comfortable, AAOx3 HEENT: NC, AT, moist mucous membranes CVS: RRR, +S1S2, no murmurs, gallops or rubs appreciated Lungs: Air entry is fair bilaterally, there does not appear to be any auscultated evidence of rhonchi, rales or wheezing Abdomen: Soft without distention or tenderness to light or deep palpation, normal bowel sounds in all four quadrants, no rebound, rigidity or guarding Extremities: No evidence of edema at lower extremities, - Calf tenderness, no significant swelling or tenderness to palpation over the right hip LABORATORY DATA, IMAGING STUDIES, MICROBIOLOGY: Please see below. IMAGIN. Head CT: There is moderate age-related parenchymal volume loss. White matter changes are demonstrated in the subcortical, centrum semiovale and periventricular white matter consistent with small vessel white matter angiopathic gliosis. 2. Cervical Spine CT: Stable degenerative spondylosis. No acute findings. 3. Hip Pelvis X-ray: Osteopenia and degenerative changes. No obvious acute fracture. 4. Femur X-ray: No obvious acute pathology by radiographic evaluation. 5. Extremity CT: Soft tissue edema lateral to the greater trochanter may be related to trochanteric bursitis or post traumatic. No fracture. 6. Chest X-ray: Relatively chronic stable changes. Cannot exclude subtle basilar atelectasis. DVT prophylaxis ordered?: c/w ZEFERINO / Sequentials ASSESSMENT AND PLAN: This is a 87-year-old female with a past medical history of vascular dementia, HTN, and TIA who presented to the emergency room after exper iencing a mechanical fall. She was found to have soft tissue edema lateral to the greater trochanter but is negative for acute fracture. PROBLEMS: 1. Right hip pain - likely 2/2 Hip contusion - likely 2/2 mechanical fall - Imaging study negative for acute fracture or process - c/w Pain control as ordered; Tramadol and [place] - c/w PT and OT; awaiting clearance for discharge home - Patient has been slow to progress with PT - Currently waiting for a bed in subacute rehabilitation - ARU Admission Screen ordered - Spoke with home health care social worker, the family is requesting subacute rehabilitation at [facility] due to consideration prior to admission of placement at that facility 2. Dysuria - likely 2/2 UTI - Urinalysis is consistent with urinary tract infection - Urine cultures negative - s/p Levaquin 3. Head contusion - likely 2/2 mechanical fall - CT brain negative for acute process - Will continue with fall precautions 4. Hypokalemia - resolved - Supplemented K yesterday 5. HTN - BP well controlled - c/w Amlodipine, Atenolol 6. Dementia - Currently appears stable - c/w Donepezil 7. Vitamin D deficiency - c/w Vitamin D supplementation 8. DVT prophylaxis - c/w ZEFERINO / Sequentials Code Status: - DNR Disposition: - Patient is stable and improving clinically today. She has increased appetite and energy levels compared to yesterday. She reports minimal right hip pain this morning. Plan to continue to work with PT and will discharge once cleared. Currently waiting for a bed in subacute rehabilitation unit. Spoke with home health care social worker, her family is requesting subacute rehabilitation at [facility] due to consideration prior to admission of placement at that facility. ARU Admission Screen ordered. I saw and evaluated the patient. I agree with the findings and plan of care as documented in the resident's note, I was made aware late in the afternoon today that the patient and family may be considering long-term placement her decision has been made no clear wishes outlined. VS, I&O, 24H, Fishbone Vital Signs/I&O Vital Signs Date Time Temp Pulse Resp B/P (MAP) Pulse Ox O2 Delivery O2 Flow Rate FiO2 10/13/18 08:47 76 138/85 10/13/18 06:00 98.4 16 95 10/07/18 23:08 Room Air I&O- Last 24 Hours up to 6 AM 10/13/18 06:00 Intake Total 700 ml Output Total 700 ml Balance 0 ml Laboratory Data 24H LABS Laboratory Tests 2 10/13/18 06:21: Immature Granulocyte % (Auto) 0.2, White Blood Count 5.5, Red Blood Count 3.93L, Hemoglobin 11.9L, Hematocrit 34.4L, Mean Corpuscular Volume 87.5, Mean Corpusc ular Hemoglobin 30.3, Mean Corpuscular Hemoglobin Concent 34.6, Red Cell Distribution Width 13.2, Platelet Count 236, Neutrophils (%) (Auto) 51.5, Lymphocytes (%) (Auto) 31.3, Monocytes (%) (Auto) 12.9H, Eosinophils (%) (Auto) 3.6H, Basophils (%) (Auto) 0.5, Neutrophils # (Auto) 2.8, Lymphocytes # (Auto) 1.7, Monocytes # (Auto) 0.7, Eosinophils # (Auto) 0.2, Basophils # (Auto) 0.0, Nucleated Red Blood Cells % (auto) 0.0, Anion Gap 7L, Glomerular Filtration Rate > 60.0, Blood Urea Nitrogen 20H, Creatinine 0.84, Sodium Level 140, Potassium Level 3.6, Chloride Level 108H, Carbon Dioxide Level 25, Calcium Level 8.8, Magnesium Level 2.1 CBC/BMP Laboratory Tests 10/13/18 06:21 Red Blood Count 3.93 L, Mean Corpuscular Volume 87.5, Mean Corpuscular Hemoglobin 30.3, Mean Corpuscular Hemoglobin Concent 34.6, Red Cell Distribution Width 13.2, Neutrophils (%) (Auto) 51.5, Lymphocytes (%) (Auto) 31.3, Monocytes (%) (Auto) 12.9 H, Eosinophils (%) (Auto) 3.6 H, Basophils (%) (Auto) 0.5, Neutrophils # (Auto) 2.8, Lymphocytes # (Auto) 1.7, Monocytes # (Auto) 0.7, Eosinophils # (Auto) 0.2, Basophils # (Auto) 0.0, Calcium Level 8.8 Microbiology Microbiology 10/09/18 Urine Culture - Final, Complete BEVERLY MOSLEY S-3 Oct 13, 2018 15:37 TREV KAPOOR MD Oct 13, 2018 15:50
[2018-10-13] MEDS: DONEPEZIL 5 MG TAB PO SCH (16:43)
[2018-10-13] MEDS: RAMELTEON 8 MG TAB (ROZEREM) PO SCH (20:37)
[2018-10-13 22:00] VITALS: BP 139/63
[2018-10-14 06:00] VITALS: BP 140/60
[2018-10-14 06:05] LABS: BASO % 0.5 % (0.0-1.0); EOS # 0.2 10^3/uL (0.0-0.50); EOS % 3.8 % (0.0-3.0); HEMATOCRIT 34.1 % (36.0-47.0); HEMOGLOBIN 11.8 g/dl (12.0-15.5); LYMPH % 33.9 % (24.0-44.0); MEAN CORPUSCULAR HEMOGLOBIN 30.2 pg (27.0-33.0); MEAN CORPUSCULAR HGB CONC 34.6 g/dl (32.0-36.5); MEAN CORPUSCULAR VOLUME 87.2 fl (80.0-96.0); MONO # 0.7 10^3/uL (0.0-0.8); MONO % 12.4 % (0.0-5.0); NEUTROPHILS # 2.9 10^3/uL (1.8-7.7); NEUTROPHILS % 49.2 % (36.0-66.0); PLATELET COUNT, AUTOMATED 243 10^3/uL (150-450); RED BLOOD COUNT 3.91 10^6/uL (4.00-5.40)
[2018-10-14 06:24] LABS: BLOOD UREA NITROGEN 16 MG/DL (7-18); CALCIUM LEVEL 9.2 MG/DL (8.8-10.2); CARBON DIOXIDE LEVEL 26 MEQ/L (21-32); CHLORIDE LEVEL 108 MEQ/L (98-107); CREATININE FOR GFR 0.86 MG/DL (0.55-1.30); GLOMERULAR FILTRATION RATE > 60.0 (>32); GLUCOSE, FASTING 83 MG/DL (70-100); POTASSIUM SERUM 3.5 MEQ/L (3.5-5.1); SODIUM LEVEL 141 MEQ/L (136-145)
[2018-10-14 09:01] VITALS: BP 140/60
[2018-10-14] MEDS: POTASSIUM CHLORIDE 10 MEQ SR TABLET PO SCH (09:01)
[2018-10-14] MEDS: DOCUSATE SODIUM 100 MG CAP PO SCH (09:01)
[2018-10-14] MEDS: atenoloL 25 MG TAB PO SCH (09:01)
[2018-10-14] MEDS: amLODIPine 10 MG TAB PO SCH (09:01)
[2018-10-14] MEDS: MECLIZINE 25 MG TABLET PO SCH (09:01)
[2018-10-14] MEDS: ACETAMINOPHEN TAB 650MG DOSE (2X325MG) PO PRN (09:02)
[2018-10-14] MEDS: ASCORBIC ACID 500 MG TAB PO SCH (09:02)
[2018-10-14] MEDS ORDERED: TRAM50TA2 PO (10:33)
--- NOTE | 2018-10-14 13:11 | DS.PDOC ---
Discharge Summary General Date of Admission Oct 10, 2018 at 09:51 Date of Discharge 10/14/18 Discharge Summary DISCHARGE DIAGNOSIS: Right Hip contusion SECONDARY DIAGNOSIS: 1.Dysuria 2.Head contusion 3. Hypokalemia 4. Hypertension 5. Dementia 6. Vitamin D deficiency PROCEDURES PERFORMED DURING STAY: None. CONSULTANTS: None HOSPITAL COURSE: Patient is an 87-year-old female with a past medical history of Hx of Dementia, HTN, TIA , who presented to the emergency room after she experience mechanical fall at home where she had sustained right-sided body injury. In the emergency room, patient had extensive imaging completed that did not reveal any signs of acute fracture or bleeding. Patient had continued pain and as such was admitted to the hospitalist service for further evaluation and treatment. Physical therapy and occupational therapy consultation was ordered. She gradually progressed and improved however given her baseline cognitive impairment eventually the decision was made by the patient and the family to elect for custodial placement which has been arranged for today. DISCHARGE MEDICATIONS: Please see below. ALLERGIES: Please see below. SUBJECTIVE: Patient tells me she is feeling better her pain is under control she is eager to leave the hospital was OBJECTIVE: PHYSICAL EXAMINATION: VITAL SIGNS: Please see below. GENERAL: Pleasant frail elderly woman lying flat in bed awake alert oriented speaking in complete sentences no acute distress HEENT: Moist mucous membranes no elevation and CVP CARDIOVASCULAR: S1 S2 regular no additional heart sounds appreciated. RESPIRATORY: Clear to auscultation bilaterally. ABDOMINAL: Bowel sounds present abdomen soft and nontender EXTREMITIES: No clubbing, cyanosis, edema NEUROLOGICAL: Spontaneously moves all 4 extremities cranial 2 through 12 grossly intact, no gross focal deficits appreciated PSYCHOLOGICAL: Appropriate LABORATORY DATA, MICROBIOLOGY: Please see below. IMAGING STUDIES: 1. Head CT: There is moderate age-related parenchymal volume loss. White matter changes are demonstrated in the subcortical, centrum semiovale and perivent ricular white matter consistent with small vessel white matter angiopathic gliosis. 2. Cervical Spine CT: Stable degenerative spondylosis. No acute findings. 3. Hip Pelvis X-ray: Osteopenia and degenerative changes. No obvious acute fracture. 4. Femur X-ray: No obvious acute pathology by radiographic evaluation. 5. Extremity CT: Soft tissue edema lateral to the greater trochanter may be related to trochanteric bursitis or post traumatic. No fracture. 6. Chest X-ray: Relatively chronic stable changes. Cannot exclude subtle basilar atelectasis. DVT prophylaxis ordered: Teds and early ambulation ASSESSMENT AND PLAN: This is a 87-year-old female with a past medical history of vascular dementia, HTN, and TIA who presented to the emergency room after experiencing a mechanical fall. She was found to have soft tissue edema lateral to the greater trochanter but negative for acute fracture. PROBLEMS: 1. Right hip pain -secondary to Hip contusion related to mechanical fall - Imaging study negative for acute fracture or process - c/w Pain control as ordered; Tramadol - c/w PT and OT; plan to discharge to custodial as an keep home today 2. Dysuria - likely 2/2 UTI - Urinalysis is consistent with urinary tract infection Patient completed a course of antibiotics while hospitalized 3. Head contusion - likely 2/2 mechanical fall - CT brain negative for acute process 4. Hypokalemia - resolved - Supplemented K previously 5. HTN - BP well controlled - c/w Amlodipine, Atenolol 6. Dementia - Currently appears stable, patient is best served by custodial facility placement - c/w Donepezil 7. Vitamin D deficiency - c/w Vitamin D supplementation 8. DVT prophylaxis - c/w ZEFERINO / Sequentials Code Status: - DNR DISCHARGE CONDITION: Improved and Stable. FOLLOW UP: PCP within 7 days ACTIVITY: As prior to admission. DIET: 2 g sodium TIME SPENT ON DISCHARGE: 50 minutes Vital Signs/I&Os Vital Signs Date Time Temp Pulse Resp B/P (MAP) Pulse Ox O2 Delivery O2 Flow Rate FiO2 10/14/18 09:01 65 140/60 10/14/18 06:00 98.2 17 95 I&O- Last 24 Hours up to 6 AM 10/14/18 06:00 Intake Total 1140 ml Output Total 600 ml Balance 540 ml Laboratory Data Labs 24H Laboratory Tests 2 10/14/18 05:19: Immature Granulocyte % (Auto) 0.2, White Blood Count 6.0, Red Blood Count 3.91L, Hemoglobin 11.8L, Hematocrit 34.1L, Mean Corpuscular Volume 87.2, Mean Corpuscular Hemoglobin 30.2, Mean Corpuscular Hemoglobin Concent 34.6, Red Cell Distribution Width 13.3, Platelet Count 243, Neutrophils (%) (Auto) 49.2, Lymphocytes (%) (Auto) 33.9, Monocytes (%) (Auto) 12.4H, Eosinophils (%) (Auto) 3.8H, Basophils (%) (Auto) 0.5, Neutrophils # (Auto) 2.9, Lymphocytes # (Auto) 2.0, Monocytes # (Auto) 0.7, Eosinophils # (Auto) 0.2, Basophils # (Auto) 0.0, Nucleated Red Blood Cells % (auto) 0.0, Anion Gap 7L, Glomerular Filtration Rate > 60.0, Blood Urea Nitrogen 16, Creatinine 0.86, Sodium Level 141, Potassium Level 3.5, Chloride Level 108H, Carbon Dioxide Level 26, Calcium Level 9.2, Magnesium Level 2.0 CBC/BMP Laboratory Tests 10/14/18 05:19 Red Blood Count 3.91 L, Mean Corpuscular Volume 87.2, Mean Corpuscular Hemoglobin 30.2, Mean Corpuscular Hemoglobin Concent 34.6, Red Cell Distribution Width 13.3, Neutrophils (%) (Auto) 49.2, Lymphocytes (%) (Auto) 33.9, Monocytes (%) (Auto) 12.4 H, Eosinophils (%) (Auto) 3.8 H, Basophils (%) (Auto) 0.5, Neutrophils # (Auto) 2.9, Lymphocytes # (Auto) 2.0, Monocytes # (Auto) 0.7, Eosinophils # (Auto) 0.2, Basophils # (Auto) 0.0, Calcium Level 9.2 Microbiology Microbiology 10/09/18 Urine Culture - Final, Complete Discharge Medications Scheduled Alendronate Sodium (Alendronate Sodium) 70 Mg Tab, 70 MG PO 1XWK, (Reported) TAKES ON THURSDAY Amlodipine Besylate (Amlodipine Besylate) 10 Mg Tab, 10 MG PO DAILY, (Reported) Ascorbic Acid (Vitamin C) 500 Mg Tab, 500 MG PO DAILY, (Reported) Aspirin (Aspirin) 81 Mg Chw, 81 MG PO DAILY, (Reported) Atenolol (Atenolol) 25 Mg Tablet, 25 MG PO DAILY, (Reported) Biotin (Biotin) 1,000 Mcg Tab.chew, 1,000 MCG PO DAILY, (Reported) Calcium Carbonate/Vitamin D3 (Calcium 600-Vit D3 400 Tablet) 1 Each Tablet, 2 TAB PO DAILY, (Reported) Docusate Sodium (Docusate Sodium) 100 Mg Capsule, 100 MG PO BID, (Reported) Donepezil HCl (Aricept) 5 Mg Tablet, 5 MG PO QPM, (Reported) TAKES AT 5PM Ergocalciferol (Vitamin D2) (Vitamin D2) 50,000 Unit Cap, 50,000 UNIT PO 1XWK, (Reported) TAKES ON THURSDAY Meclizine HCl (Meclizine HCl) 25 Mg Tab, 25 MG PO BID, (Reported) TAKES AT 0800 AND 1700 Mirtazapine (Mirtazapine) 15 Mg Tab.rapdis, 15 MG PO QHS, (Reported) Multivitamin (Tab-A-Elieso) 1 Tab Tab, 1 TAB PO DAILY, (Reported) Pantoprazole Sodium (Pantoprazole Sodium) 40 Mg Tab, 40 MG PO DAILY, (Reported) Potassium Chloride (Potassium Chloride) 10 Meq Cap, 20 MEQ PO DAILY, (Reported) Scheduled PRN Simethicone (Simethicone) 80 Mg Chew, 80 MG PO ASDIRECTED PRN for GAS PAIN, (Reported) Tramadol HCl (Tramadol HCl) 50 Mg Tablet, 50 MG PO Q6HP PRN for MODERATE PAIN (PS 5-7) Allergies Coded Allergies: TAPE (Verified Allergy, Intermediate, RASH, 05/13/18) Contrast Media (Verified Allergy, Unknown, IV DYE, 05/13/18) amoxicillin (Verified Allergy, Unknown, 06/30/18) bacitracin (Verified Allergy, Unknown, 06/30/18) bee venom protein (honey bee) (Verified Allergy, Unknown, 06/30/18) carisoprodol (Verified Allergy, Unknown, 06/30/18) cephalexin (Verified Allergy, Unknown, 06/30/18) clavulanic acid (Verified Allergy, Unknown, 06/30/18) codeine (Verified Allergy, Unknown, 06/30/18) meperidine (Verified Allergy, Unknown, 06/30/18) morphine (Verified Allergy, Unknown, 06/30/18) neomycin (Verified Allergy, Unknown, 06/30/18) pentazocine (Verified Allergy, Unknown, 06/30/18) polymyxin B (Verified Allergy, Unknown, 06/30/18) pregabalin (Verified Allergy, Unknown, 06/30/18) zolpidem (Verified Allergy, Unknown, 06/30/18) sleepwalking; causes falls TREV KAPOOR MD Oct 14, 2018 13:11
== END 2018-10-14 13:15 | DRG 605 ==
LOC: M ED 18:42 → EDBD 18:42 → M ED INP 18:43 → M MS5PR 10-08 01:45 → INTOOBSV 10-10 09:51 → OBSVTOIN 10-10 09:51
PROVIDERS: ADMIT Family Medicine; ATTEND Internal Medicine
DX: S70.01XA Contusion of right hip, initial encounter (principal); N39.0 Urinary tract infection, site not specified; S00.93XA Contusion of unspecified part of head, initial encounter; I10 Essential (primary) hypertension; F01.50 Vascular dementia, unspecified severity, without behavioral disturbance, psychotic disturbance, mood disturbance, and anxiety; Z86.73 Personal history of transient ischemic attack (TIA), and cerebral infarction without residual deficits; Z96.653 Presence of artificial knee joint, bilateral; Z79.899 Other long term (current) drug therapy; Z88.0 Allergy status to penicillin; Z88.1 Allergy status to other antibiotic agents; Z88.5 Allergy status to narcotic agent; Z88.8 Allergy status to other drugs, medicaments and biological substances; Z91.041 Radiographic dye allergy status; Z91.048 Other nonmedicinal substance allergy status; Z66 Do not resuscitate; V48.4XXA Person boarding or alighting a car injured in noncollision transport accident, initial encounter; E55.9 Vitamin D deficiency, unspecified; E87.6 Hypokalemia; M79.89 Other specified soft tissue disorders

== ENCOUNTER → 2018-10-18 | Outpatient (REF) ==
[~2018-10-18] MED LIST changes: +ARIC1TAB PO; +ATEN25TA PO; +BIOT10009 PO; -BISO10TA14 PO; +BISO10TA7 PO; +CALC1TAB63 PO; +DOCU100C16 PO; +DOKTAB2; +LOSA50TA5 PO; +MECL-68 PO; -MECL1TAB31 PO; +MIRT1TAB15 PO; -SENN1TAB84; +TRAM50TA2 PO
[2018-10-18 15:22] LABS: HEMATOCRIT 39.6 % (36.0-47.0); HEMOGLOBIN 12.6 g/dl (12.0-15.5); MEAN CORPUSCULAR HEMOGLOBIN 29.3 pg (27.0-33.0); MEAN CORPUSCULAR HGB CONC 31.8 g/dl (32.0-36.5); MEAN CORPUSCULAR VOLUME 92.1 fl (80.0-96.0); PLATELET COUNT, AUTOMATED 267 10^3/uL (150-450); WHITE BLOOD COUNT 8.4 10^3/uL (4.0-10.0)
[2018-10-18 15:26] LABS: CALCIUM LEVEL 9.2 MG/DL (8.8-10.2); CREATININE FOR GFR 1.11 MG/DL (0.55-1.30); GLOMERULAR FILTRATION RATE 49.3 (>32); POTASSIUM SERUM 4.2 MEQ/L (3.5-5.1)
== END ==
LOC: SKLAB7 13:30
PROVIDERS: ATTEND Internal Medicine
DX: I95.1 Orthostatic hypotension (principal)

== ENCOUNTER → 2018-12-06 | Outpatient (REF) | payer MEDICARE, MEDICAID ==
[~2018-12-06] MED LIST changes: +BISO10TA10 PO; -BISO10TA7 PO; -DOKTAB2; +SENN1TAB84
== END ==
LOC: M LAB 18:00
PROVIDERS: ATTEND Internal Medicine
DX: R41.82 Altered mental status, unspecified (principal)

== ENCOUNTER → 2018-12-07 | Outpatient (REF) | payer MEDICARE, MEDICAID ==
[2018-12-08 01:49] LABS: APPEARANCE, URINE CLEAR (CLEAR); BACTERIA, URINE AUTO NEGATIVE (NEGATIVE); BILIRUBIN, URINE AUTO NEGATIVE (NEGATIVE); BLOOD, URINE BLOOD NEGATIVE (NEGATIVE); COLOR, URINE YELLOW (YELLOW); GLUCOSE, URINE (UA) AUTO NEGATIVE (NEGATIVE); KETONE, URINE AUTO NEGATIVE (NEGATIVE); LEUKOCYTE ESTERASE, URINE AUTO 1+ (NEGATIVE); MUCUS, URINE SMALL (NEGATIVE); NITRITE, URINE AUTO NEGATIVE (NEGATIVE); PROTEIN, URINE AUTO NEGATIVE (NEGATIVE); RBC, URINE AUTO 4 /HPF (0-3); SPECIFIC GRAVITY URINE AUTO 1.021 (1.002-1.035); SQUAMOUS EPITHELIAL CELL UR AU 0 /HPF (0-6); UROBILINOGEN, URINE AUTO 0.2 mg/dL (0.0-2.0); WBC, URINE AUTO 4 /HPF (0-3)
== END ==
LOC: SKLAB7 12-06 18:00
PROVIDERS: ATTEND Internal Medicine
DX: R41.0 Disorientation, unspecified (principal)

== ENCOUNTER → 2018-12-16 | Outpatient (REF) | payer MEDICARE, MEDICAID | LOC: SKLAB7 07:00 | PROVIDERS: ATTEND Internal Medicine | DX: E55.9 Vitamin D deficiency, unspecified (principal); Z79.899 Other long term (current) drug therapy ==

== ENCOUNTER → 2019-02-02 | Outpatient (REF) | payer MEDICARE, MEDICAID ==
[2019-02-02 11:28] LABS: CALCIUM LEVEL 9.3 MG/DL (8.8-10.2); CREATININE FOR GFR 0.98 MG/DL (0.55-1.30); GLOMERULAR FILTRATION RATE 56.9 (>32); POTASSIUM SERUM 4.2 MEQ/L (3.5-5.1)
== END ==
LOC: SKLAB7 10:11
PROVIDERS: ATTEND Internal Medicine
DX: E87.6 Hypokalemia (principal)

== ENCOUNTER 2019-04-17 15:59 | Emergency (ER) | payer MEDICARE, MEDICAID ==
[~2019-04-17] VITALS: Ht 152.4 cm; Wt 63.6 kg
[~2019-04-17 15:59] MED LIST changes: -BISO10TA10 PO; +BISO10TA14 PO; -MECL-68 PO; +MECL1TAB31 PO
[2019-04-17] MEDS ORDERED: ONDANSETRON 4MG/2ML VIAL (J2405) IV ONE (17:30)
[2019-04-17] MEDS ORDERED: NS 500 ML IV ONE (17:30)
[2019-04-17] MEDS ORDERED: SERT25TA85 PO (17:49)
[2019-04-17] MEDS ORDERED: NORV5TAB PO (17:49)
[2019-04-17] MEDS ORDERED: REME15TA2 PO (17:49)
[2019-04-17] MEDS ORDERED: AK-T0.3S OU (17:49)
[2019-04-17] MEDS ORDERED: ASPI81TA26 PO (17:49)
[2019-04-17] MEDS ORDERED: PANT20TA2 PO (17:49)
[2019-04-17] MEDS ORDERED: KETO0.3S OU (17:49)
[2019-04-17 17:56] LABS: BASO % 0.2 % (0.0-1.0); EOS # 0.1 10^3/uL (0.0-0.5); EOS % 0.9 % (0.0-3.0); HEMATOCRIT 40.6 % (36.0-47.0); HEMOGLOBIN 13.3 g/dl (12.0-15.5); LYMPH # 0.7 10^3/uL (1.5-5.0); LYMPH % 6.3 % (24.0-44.0); MEAN CORPUSCULAR HEMOGLOBIN 27.4 pg (27.0-33.0); MEAN CORPUSCULAR HGB CONC 32.8 g/dl (32.0-36.5); MEAN CORPUSCULAR VOLUME 83.7 fl (80.0-96.0); MONO # 0.5 10^3/uL (0.0-0.8); MONO % 4.8 % (0.0-5.0); NEUTROPHILS % 87.5 % (36.0-66.0); PLATELET COUNT, AUTOMATED 229 10^3/uL (150-450); RED BLOOD COUNT 4.85 10^6/uL (4.00-5.40); WHITE BLOOD COUNT 10.3 10^3/uL (4.0-10.0)
[2019-04-17 18:04] LABS: BLOOD UREA NITROGEN 14 MG/DL (7-18); CALCIUM LEVEL 8.9 MG/DL (8.8-10.2); CARBON DIOXIDE LEVEL 22 MEQ/L (21-32); CHLORIDE LEVEL 110 MEQ/L (98-107); CREATININE FOR GFR 0.91 MG/DL (0.55-1.30); GLOMERULAR FILTRATION RATE > 60.0 (>32); GLUCOSE, FASTING 111 MG/DL (70-100); POTASSIUM SERUM 4.2 MEQ/L (3.5-5.1); SODIUM LEVEL 143 MEQ/L (136-145)
[2019-04-17] MEDS ORDERED: ONDA8TAB8 PO (21:19)
[2019-04-17] MEDS ORDERED: BACT800T5 PO (21:19)
[2019-04-17 21:30] VITALS: BP 155/87
[2019-04-17] MEDS ORDERED: ONDANSETRON 4 MG ORAL DISINTEGRATING TAB (Q0162 PER 1MG) PO ONE ×2 (21:30)
[2019-04-17] MEDS ORDERED: BACTRIM 160MG/800MG DS TAB PO ONE (21:30)
== END 2019-04-17 21:48 | disposition home or self-care (01) ==
LOC: M ED 15:59
DX: N39.0 Urinary tract infection, site not specified (principal); I10 Essential (primary) hypertension; G30.9 Alzheimer's disease, unspecified; K21.9 Gastro-esophageal reflux disease without esophagitis; Z79.899 Other long term (current) drug therapy; Z79.82 Long term (current) use of aspirin; Z88.0 Allergy status to penicillin; Z88.1 Allergy status to other antibiotic agents; Z88.5 Allergy status to narcotic agent; Z88.8 Allergy status to other drugs, medicaments and biological substances; Z91.030 Bee allergy status; Z91.041 Radiographic dye allergy status; Z91.048 Other nonmedicinal substance allergy status
CPT/HCPCS: 51701; 80048; 81001; 85025; 87088; 87186; 96361; 96374; 99284; J2405; Q0162

== ENCOUNTER → 2019-05-04 | Outpatient (REF) | payer MEDICARE, MEDICAID ==
[~2019-05-04] MED LIST changes: +AK-T0.3S OU; +BACT800T5 PO; +KETO0.3S OU; +NORV5TAB PO; +ONDA8TAB8 PO; +PANT20TA2 PO; +REME15TA2 PO; +SERT25TA85 PO
== END ==
LOC: M LAB REF 16:50
PROVIDERS: ATTEND Family Medicine
DX: N39.0 Urinary tract infection, site not specified (principal)

== ENCOUNTER 2019-05-16 20:16 | Inpatient (IN) | payer MEDICARE, MEDICAID ==
[~2019-05-16] VITALS: Ht 160 cm; Wt 56.1 kg
[~2019-05-16 20:16] MED LIST changes: -SUCR10SS PO; +SUCR1ORA2 PO
[2019-05-16 21:24] LABS: BASO % 0.3 % (0.0-1.0); EOS # 0.2 10^3/uL (0.0-0.5); EOS % 2.3 % (0.0-3.0); HEMATOCRIT 36.3 % (36.0-47.0); HEMOGLOBIN 11.5 g/dl (12.0-15.5); LYMPH # 0.6 10^3/uL (1.5-5.0); MEAN CORPUSCULAR HEMOGLOBIN 27.6 pg (27.0-33.0); MEAN CORPUSCULAR HGB CONC 31.7 g/dl (32.0-36.5); MEAN CORPUSCULAR VOLUME 87.3 fl (80.0-96.0); MONO # 0.6 10^3/uL (0.0-0.8); MONO % 8.5 % (0.0-5.0); NEUTROPHILS # 5.2 10^3/uL (1.5-8.5); NEUTROPHILS % 79.6 % (36.0-66.0); PLATELET COUNT, AUTOMATED 170 10^3/uL (150-450); RED BLOOD COUNT 4.16 10^6/uL (4.00-5.40); WHITE BLOOD COUNT 6.6 10^3/uL (4.0-10.0)
[2019-05-16 21:43] LABS: ALBUMIN 3.1 GM/DL (3.2-5.2); ALT/SGPT 12 U/L (12-78); BILIRUBIN,DIRECT 0.1 MG/DL (0.0-0.2); BILIRUBIN,TOTAL 0.4 MG/DL (0.2-1.0); BLOOD UREA NITROGEN 11 MG/DL (7-18); CALCIUM LEVEL 8.3 MG/DL (8.8-10.2); CARBON DIOXIDE LEVEL 27 MEQ/L (21-32); CHLORIDE LEVEL 109 MEQ/L (98-107); CK-MB VALUE MASS < 1.0 NG/ML (<3.6); CPK CREATINE PHOSPHOKINASE 26 U/L (26-192); CREATININE FOR GFR 0.93 MG/DL (0.55-1.30); GLOMERULAR FILTRATION RATE > 60.0 (>32); GLUCOSE, FASTING 98 MG/DL (70-100); MB/CK RELATIVE INDEX 3.85 (< OR =4); POTASSIUM SERUM 3.8 MEQ/L (3.5-5.1); SODIUM LEVEL 142 MEQ/L (136-145); THYROID STIMULATING HORMONE 0.513 uIU/ML (0.358-3.740); TOTAL PROTEIN 6.3 GM/DL (6.4-8.2); TROPONIN I 0.02 NG/ML (< 0.10)
[2019-05-16] MEDS ORDERED: ACETAMINOPHEN TAB 650MG DOSE (2X325MG) PO ONE (21:45)
[2019-05-16 22:07] LABS: LIPASE 57 U/L (73-393)
[2019-05-16] MEDS ORDERED: CIPROFLOXACIN 400 MG in IV 1 EA IV ONE (22:45)
[2019-05-16] MEDS ORDERED: IBUPROFEN 600 MG TAB PO ONE (23:00)
[2019-05-16 23:02] LABS: INFLUENZA A AMPLIFICATION NEGATIVE (NEGATIVE); INFLUENZA B AMPLIFICATION NEGATIVE (NEGATIVE)
--- NOTE | 2019-05-16 23:04 | REPVR ---
PROCEDURE INFORMATION: Exam: CT Abdomen And Pelvis Without Contrast Exam date and time: 05/16/2019 10:13 PM Age: 88 years old Clinical indication: Abdominal pain; Prior surgery; Additional info: Gen abd pain TECHNIQUE: Imaging protocol: Computed tomography of the abdomen and pelvis without contrast. Radiation optimization: All CT scans at this facility use at least one of these dose optimization techniques: automated exposure control; mA and/or kV adjustment per patient size (includes targeted exams where dose is matched to clinical indication); or iterative reconstruction. COMPARISON: CT ABD PELVIS W/O CONTRAST 2018-02-11 14:01 FINDINGS: Limitations: Artifact related to patient's arm position limits evaluation. Lungs: 4 mm pleural-based right lower lobe pulmonary nodule. Liver: Normal. No mass. Gallbladder and bile ducts: Cholecystectomy clips in the right upper quadrant. Pancreas: Normal. No ductal dilation. Spleen: Normal. No splenomegaly. Adrenals: Normal. No mass. Kidneys and ureters: Vascular versus punctate nonobstructing right renal calculi. Scarring in the inferior right kidney. Stomach and bowel: Unremarkable. No obstruction. No mucosal thickening. Appendix: No evidence of appendicitis. Intraperitoneal space: Unremarkable. No free air. No significant fluid collection. Vasculature: Mild to moderate aortic and iliac artery atherosclerotic calcification. Lymph nodes: Unremarkable. No enlarged lymph nodes. Bladder: Unremarkable as visualized. Reproductive: Hysterectomy. Bones/joints: Multilevel moderate to severe lumbar spinal stenosis. Moderate to severe left, and moderate right hip degenerative joint disease. Moderate lumbar spondylosis. L3-L4 severe spinal stenosis. Soft tissues: Small fat protruding umbilical hernia. IMPRESSION: 1. No acute abnormality. 2. 4 mm pleural-based right lower lobe pulmonary nodule. COMMENT: As per Fleischner Society guidelines for follow-up and management of pulmonary nodules: For patients at low risk (minimal or absent history of smoking and of other known risk factors), no follow-up needed. For patient at high risk (history of smoking or of other known risk factors), recommend follow-up chest CT at 12 months; if unchanged, no further follow-up needed. Electronically signed by: Adrián Munoz On 05/16/2019 23:04:25 PM
--- NOTE | 2019-05-16 23:06 | REPVR ---
PROCEDURE INFORMATION: Exam: XR Chest, 2 Views Exam date and time: 05/16/2019 10:37 PM Age: 88 years old Clinical indication: Fever TECHNIQUE: Imaging protocol: XR of the chest Views: 2 views. COMPARISON: CR Chest, 1 view 2018-10-07 19:06 FINDINGS: Lungs: Mild infiltrate in the right lower lobe laterally . Pleural space: Unremarkable. No pleural effusion. No pneumothorax. Heart/Mediastinum: Unremarkable. No cardiomegaly. Bones/joints: Healed left lateral rib fractures. Moderate thoracic spondylosis. IMPRESSION: Mild infiltrate in the right lower lobe laterally . Electronically signed by: Adrián Munoz On 05/16/2019 23:05:45 PM
[2019-05-16] MEDS ORDERED: LevoFLOXacin IV 750 MG in IV 1 EA IV ONE (23:30)
--- NOTE | 2019-05-16 23:35 | HPEPDOC ---
[facility] Medical History & Physical Date of Admission May 16, 2019 Date of Service: May 16, 2019 Primary Care Physician: Jr Gonzalez Collins Attending Physician: ROSA ISELA SCHMITT MD History and Physical TIME OF SERVICE: 11:59 PM CHIEF COMPLAINT: Fever HISTORY OF PRESENT ILLNESS: The patient has dementia the majority of the history was obtained from ER staff and the patient's family. This is an 88-year-old female is brought in by her family for evaluation of fevers with a temperature of 107, and rigors that started about 6:30 PM. The patient has dementia and it's difficult to tell if she is more confused than her baseline. The patient's family denied noticing cough or congestion. REVIEW OF SYSTEMS: 12 point review of systems negative except as listed in HPI PAST MEDICAL/ SURGICAL HISTORY: Dementia hx of TIA Chronic HTN Osteoporosis Status post appendectomy Status post bilateral knee replacement Status post cholecystectomy Status post hysterectomy Status post bilateral suspension surgery Status post lumpectomy Status post tonsillectomy SOCIAL HISTORY: She doesn't smoke FAMILY HISTORY: HTN Throat cancer ALLERGIES: Please see below. HOME MEDICATIONS: Please see below. PHYSICAL EXAMINATION: VITAL SIGNS: Please see below. GEN: Slim build/ NAD INTEGUMENT: not flushed/ diaphoretic HEENT: mucus membranes dry / nasal cannula in place CVS: RRR/NMRG/ trace lower extremity edema LUNGS: clear to auscultation bilaterally on room air ABDOMEN: soft & not tender with palpation PSYCH: alert / document movements/ speech is not congruent with the conversation LABORATORY DATA: See below. IMAGING: Chest x-ray " IMPRESSION: Mild infiltrate in the right lower lobe laterally . " CT abdomen and pelvis " IMPRESSION: 1. No acute abnormality. 2. 4 mm pleural-b ased right lower lobe pulmonary nodule. " MICROBIOLOGY: Please see below. ASSESSMENT: Ms. Hunter is an 88-year-old female with a history of HTN, TIA, dementia, and osteoporosis who is admitted for management of right-sided pneumonia. PLAN: 1. Right lower lobe pneumonia The only symptom she appears to have is a fever. She is not hypoxic on room air. Chest x-ray report reviewed PORT/PSI Score to predict risk of mortality in pt w CAP = 109 points = Class IV risk = moderate risk = in patient admisison warranted Plan: admit to PCU/ aspiration precautions, elevate head of bed,/ f/u blood cx ordered in ER / since she doesn't have SIRs criteria and is not sick enough to warrant ICU admission I will not order sputum cx, strep pneumo or strep legionella / c/w Levofloxacin / IVF / Acetaminophen PRN for fever 2. Asymptomatic UTI. The patient's family denied noticing the patient complaining of abdominal pain. The patient was not tender with palpation of her abdomen during the physical ex am. Plan: therapy not warranted 3. Dementia - Plan: Donepezil & Rozerum 4. hx of TIA - Plan: ASA 5. Chronic HTN - Plan: amlodipine, atenolol 6. Osteoporosis - Plan: hold PPI (can f/u w PCP to dc this med if warranted), c/w Ca++ DVT PROPHYLAXIS: Lovenox DISPOSITION: home after more than 2 midnight's stay Vital Signs Vital Signs Date Time Temp Pulse Resp B/P (MAP) Pulse Ox O2 Delivery O2 Flow Rate FiO2 05/16/19 22:57 100.7 05/16/19 21:00 80 20 155/70 (98) 96 Room Air Laboratory Data Labs 24H Laboratory Tests 2 05/16/19 20:56: Immature Granulocyte % (Auto) 0.3, Neutrophils (%) (Auto) 79.6H, Lymphocytes (%) (Auto) 9.0L, Monocytes (%) (Auto) 8.5H, Eosinophils (%) (Auto) 2.3, Basophils (%) (Auto) 0.3, Neutrophils # (Auto) 5.2, Lymphocytes # (Auto) 0.6L, Monocytes # (Auto) 0.6, Eosinophils # (Auto) 0.2, Basophils # (Auto) 0.0, Nucleated Red Blood Cells % (auto) 0.0, Anion Gap 6L, Glomerular Filtration Rate > 60.0, Lactic Acid Level 1.5, Calcium Level 8.3L, Total Bilirubin 0.4, Direct Bilirubin 0.1, Aspartate Amino Transf (AST/SGOT) 15, Alanine Aminotransferase (ALT/SGPT) 12, Alkaline Phosphatase 75, Total Creatine Kinase 26, Creatine Kinase MB < 1.0, Creatine Kinase MB Relative Index 3.85, Troponin I 0.02, Total Protein 6.3L, Albumin 3.1L, Albumin/Globulin Ratio 0.97L, Lipase 57L, Thyroid Stimulating Hormone (TSH) 0.513 05/16/19 21:05: Bedside Glucose (Misc Panel) 118H 05/16/19 21:09: POC Glucose (Misc Panel) 104, POC Sodium (Misc Panel) 140, POC Potassium (Misc Panel) 3.9, POC Chloride (Misc Panel) 105, POC Total CO2 (Misc Panel) 26.0, POC Blood Urea Nitrogen (Misc Panel 12, POC Ionized Calcium (Misc Panel) 4.5, POC Cr eatinine (Misc Panel) 0.9, POC Hematocrit (Misc Panel) 35.0L 05/16/19 22:08: Urine Color YELLOW, Urine Appearance CLOUDYH, Urine pH 6.0, Urine Specific [place] 1.011, Urine Protein NEGATIVE, Urine Glucose (UA) NEGATIVE, Urine Ketones NEGATIVE, Urine Blood NEGATIVE, Urine Nitrite POSITIVEH, Urine Bilirubin NEGATIVE, Urine Urobilinogen 0.2, Urine Leukocyte Esterase 3+H, Urine WBC (Auto) TNTCH, Urine RBC (Auto) 11H, Urine Hyaline Casts (Auto) 0, Urine Bacteria (Auto) 2+H, Urine Squamous Epithelial Cells 0, Urine Sperm (Auto) , Influenza Type A (RT-PCR) NEGATIVE, Influenza Type B (RT-PCR) NEGATIVE CBC/BMP Laboratory Tests 05/16/19 20:56 Microbiology Microbiology 05/16/19 Urine Culture, Received Pending 05/16/19 Blood Culture, Received Pending Home Medications Scheduled Amlodipine Besylate (Norvasc) 5 Mg Tablet, 5 MG PO DAILY Ascorbic Acid (Vitamin C) 500 Mg Tab, 500 MG PO DAILY Aspirin (Aspirin EC) 81 Mg Tablet.dr, 81 MG PO DAILY Atenolol (Atenolol) 25 Mg Tablet, 25 MG PO QPM @1700 Calcium Carbonate/Vitamin D3 (Calcium 600-Vit D3 400 Tablet) 1 Each Tablet, 2 TAB PO DAILY Cyanocobalamin (Vitamin B-12) (Vitamin B-12) 1,000 Mcg Tablet, 1,000 MCG PO DAILY Docusate Sodium (Docusate Sodium) 100 Mg Capsule, 100 MG PO DAILY Donepezil HCl (Aricept) 5 Mg Tablet, 5 MG PO QPM @1700 Melatonin (Melatonin) 10 Mg Tablet, 10 MG PO QHS Mirtazapine (Remeron) 15 Mg Tablet, 15 MG PO QHS Multivitamin (Tab-A-Eliseo) 1 Tab Tab, 1 TAB PO DAILY Pantoprazole Sodium (Pantoprazole Sodium) 20 Mg Tablet.dr, 20 MG PO DAILY Potassium Chloride (Potassium Chloride) 10 Meq Cap, 20 MEQ PO QPM @1700 Sertraline Hcl (Sertraline HCl) 25 Mg Tablet, 25 MG PO DAILY Allergies Coded Allergies: TAPE (Verified Allergy, Intermediate, RASH, 05/13/18) Contrast Media (Verified Allergy, Unknown, IV DYE, 05/13/18) amoxicillin (Verified Allergy, Unknown, 06/30/18) bacitracin (Verified Allergy, Unknown, 06/30/18) bee venom protein (honey bee) (Verified Allergy, Unknown, 06/30/18) carisoprodol (Verified Allergy, Unknown, 06/30/18) cephalexin (Verified Allergy, Unknown, 06/30/18) clavulanic acid (Verified Allergy, Unknown, 06/30/18) codeine (Verified Allergy, Unknown, 06/30/18) meperidine (Verified Allergy, Unknown, 06/30/18) morphine (Verified Allergy, Unknown, 06/30/18) neomycin (Verified Allergy, Unknown, 06/30/18) pentazocine (Verified Allergy, Unknown, 06/30/18) polymyxin B (Verified Allergy, Unknown, 06/30/18) pregabalin (Verified Allergy, Unknown, 06/30/18) zolpidem (Verified Allergy, Unknown, 06/30/18) sleepwalking; causes falls A-FIB/CHADSVASC A-FIB History Current/History of A-Fib/PAF?: No Current PO Anticoag Therapy: No ROSA ISELA SCHMITT MD May 16, 2019 23:35
[2019-05-16] MEDS ORDERED: MOM 30ML SUSPENSION UDC PO PRN (23:45)
[2019-05-16] MEDS ORDERED: ACETAMINOPHEN TAB 650MG DOSE (2X325MG) PO PRN (23:45)
[2019-05-16] MEDS ORDERED: MAALOX 30 ML SUSP *UDC PO PRN (23:45)
[2019-05-17] MEDS ORDERED: RA M10TA PO (00:28)
[2019-05-17] MEDS ORDERED: REME15TA PO (00:28)
[2019-05-17] MEDS ORDERED: CYAN100050 PO (00:28)
[2019-05-17 01:39] VITALS: BP 120/100
[2019-05-17 01:53] LABS: VENOUS BASE EXCESS 0.5 (-2.0-2.0); VENOUS HCO3 21.9 MEQ/L (23.0-27.0); VENOUS O2 SATURATION 97.7 % (60.0-80.0); VENOUS PARTIAL PRESSURE CO2 26.1 mmHg (38.0-50.0); VENOUS PARTIAL PRESSURE O2 86.9 mmHg (30.0-50.0); VENOUS PH 7.541 UNITS (7.330-7.430); VENOUS STANDARD HCO3 24.9 MEQ/L; VENOUS TOTAL CO2 22.7 MEQ/L (24.0-28.0)
[2019-05-17 04:00] VITALS: BP 123/55
[2019-05-17] MEDS ORDERED: CALCIUM CARBONATE 500 MG CHEW U/D PO PRN (04:00)
[2019-05-17] MEDS: MIRTAZAPINE 15 MG TAB PO SCH ×2 (04:23→21:33)
[2019-05-17] MEDS: RAMELTEON 8 MG TAB (ROZEREM) PO SCH ×2 (04:24→21:33)
[2019-05-17 05:19] LABS: HEMATOCRIT 33.1 % (36.0-47.0); HEMOGLOBIN 10.7 g/dl (12.0-15.5); MEAN CORPUSCULAR HEMOGLOBIN 27.7 pg (27.0-33.0); MEAN CORPUSCULAR HGB CONC 32.3 g/dl (32.0-36.5); MEAN CORPUSCULAR VOLUME 85.8 fl (80.0-96.0); PLATELET COUNT, AUTOMATED 153 10^3/uL (150-450); RED BLOOD COUNT 3.86 10^6/uL (4.00-5.40); WHITE BLOOD COUNT 8.1 10^3/uL (4.0-10.0)
[2019-05-17 05:50] LABS: CALCIUM LEVEL 8.6 MG/DL (8.8-10.2); CREATININE FOR GFR 1.09 MG/DL (0.55-1.30); GLOMERULAR FILTRATION RATE 50.3 (>32); MAGNESIUM LEVEL 1.6 MG/DL (1.8-2.4); POTASSIUM SERUM 4.1 MEQ/L (3.5-5.1)
[2019-05-17 08:00] VITALS: BP 142/67
--- NOTE | 2019-05-17 08:06 | ECGEPIP ---
[facility] - ED Test Date: 2019-05-16 Pat Name: SHERRI NICE Department: Room: [place] [address] Gender: Female Rn Disease Management: RAKAN : 1930 Requested By: VIRGILIO HIGHTOWER Order Number: [id number] Reading MD: Carmita Salazar Measurements Intervals [place] Rate: 80 P: 62 CA: 168 QRS: 3 QRSD: 74 T: 11 QT: 368 QTc: 427 Interpretive Statements SINUS RHYTHM NONSPECIFIC T-WAVE ABNORMALITY DELAYED R PROGRESSION INCREASED RATE 08/13/18 Electronically Signed on 05-17-2019 8:06:46 EST by Carmita Salazar
[2019-05-17] MEDS: DOCUSATE SODIUM 100 MG CAP PO SCH ×3 (09:00→21:33)
[2019-05-17] MEDS: ASPIRIN 81 MG ENTERIC TAB PO SCH (09:16)
[2019-05-17] MEDS: ENOXAPARIN 40 MG/0.4 ML SYRINGE (J1650) SC SCH (09:17)
[2019-05-17] MEDS: amLODIPine 5 MG TAB PO SCH (09:17)
[2019-05-17] MEDS: SERTRALINE HCL 25 MG TABLET PO SCH (09:17)
--- NOTE | 2019-05-17 10:56 | IPNPDOC ---
Subjective Date Seen The patient was seen on 05/17/19. Subjective Chief Complaint/HPI Patient is comfortable in no distress. No new complaints General: Denies: ROS Unobtainable, Chills, Night Sweats, Fatigue, Malaise, Normal Appetite, Other Symptoms Constitutional: Denies: Chills, Fever, Malaise, Night Sweats, Weakness, Fatigue, Weight Loss, Lethargy, Other Pulmonary: Denies: Dyspnea, Cough, Pleuritic Chest Pain, Other Symptoms Cardiovascular: Denies: Chest Pain, Palpitations, Orthopnea, Paroxysmal Noc. Dyspnea, Edema, Lt Headedness, Other Symptoms Gastrointestinal: Denies: Nausea, Vomiting, Abdominal Pain, Diarrhea, Constipation Musculoskeletal: Denies: Neck Pain, Back Pain, Shoulder Pain, Arm Pain, Hand Pain, Leg Pain, Foot Pain, Joint Pain, Muscle Pain, Spasms, Other Symptoms Neurological: Denies: Weakness, Numbness, Incoordination, Change in speech, Confusion, Seizures, Other Symptoms Objective Physical Examination Neck Exam: Positive: Supple Chest Exam: Positive: Clear to auscultation, Other (, crackles at right lower lobe on auscultation) Heart Exam: Positive: Rate Normal, Normal S1, Normal S2 Abdomen Exam: Positive: Normal bowel sounds, Soft Extremity Exam: Positive: Normal pulses Skin Exam: Positive: Nl turgor and temperature Assessment /Plan Problems (1) Pneumonia Status: Acute Problem Text: Right lower lobe pneumonia The only symptom she appears to have is a fever. She is not hypoxic on room air. Chest x-ray report reviewed PORT/PSI Score to predict risk of mortality in pt w CAP = 109 points = Class IV risk = moderate risk = in patient admisison warranted Patient was admitted to PCU Continue aspiration precautions with elevation of head of bed Blood cultures were orders so far negative. Final report pending Continue IV fluids Tylenol when necessary Continue Levaquin A.m. labs (2) UTI (urinary tract infection) Status: Acute Problem Text: UTI The patient's family denied noticing the patient complaining of abdominal pain. The patient was not tender with palpation of her abdomen during the physical exam. Urine cultures pending Continue IV Levaquin (3) Hypertension Status: Chronic Problem Text: Continue home meds (4) Hyperlipidemia Status: Chronic Problem Text: Continue home meds (5) Dementia Status: Chronic Problem Text: Continue Donepezil & Rozerum Plan/VTE VTE Prophylaxis Ordered?: Yes VS, I&O, [facility] Vital Signs/I&O Vital Signs Date Time Temp Pulse Resp B/P (MAP) Pulse Ox O2 Delivery O2 Flow Rate FiO2 05/17/19 09:17 61 142/67 05/17/19 08:00 98.6 17 97 Room Air I&O- Last 24 Hours up to 6 AM 05/17/19 05:59 Intake Total 0 ml Output Total 0 ml Balance 0 ml Laboratory Data 24H LABS Laboratory Tests 2 05/16/19 20:56: Immature Granulocyte % (Auto) 0.3, Neutrophils (%) (Auto) 79.6H, Lymphocytes (%) (Auto) 9.0L, Monocytes (%) (Auto) 8.5H, Eosinophils (%) (Auto) 2.3, Basophils (%) (Auto) 0.3, Neutrophils # (Auto) 5.2, Lymphocytes # (Auto) 0.6L, Monocytes # (Auto) 0.6, Eosinophils # (Auto) 0.2, Basophils # (Auto) 0.0, Nucleated Red Blood Cells % (auto) 0.0, Anion Gap 6L, Glomerular Filtration Rate > 60.0, Lactic Acid Level 1.5, Calcium Level 8.3L, Total Bilirubin 0.4, Direct Bilirubin 0.1, Aspartate Amino Transf (AST/SGOT) 15, Alanine Aminotransferase (ALT/SGPT) 12, Alkaline Phosphatase 75, Total Creatine Kinase 26, Creatine Kinase MB < 1.0, Creatine Kinase MB Relative Index 3.85, Troponin I 0.02, Total Protein 6.3L, Albumin 3.1L, Albumin/Globulin Ratio 0.97L, Lipase 57L, Thyroid Stimulating Hormone (TSH) 0.513 05/16/19 21:05: Bedside Glucose (Misc Panel) 118H 05/16/19 21:09: POC Glucose (Misc Panel) 104, POC Sodium (Misc Panel) 140, POC Potassium (Misc Panel) 3.9, POC Chloride (Misc Panel) 105, POC Total CO2 (Misc Panel) 26.0, POC Blood Urea Nitrogen (Misc Panel 12, POC Ionized Calcium (Misc Panel) 4.5, POC Creatinine (Misc Panel) 0.9, POC Hematocrit (Misc Panel) 35.0L 05/16/19 22:08: Urine Color YELLOW, Urine Appearance CLOUDYH, Urine pH 6.0, Urine Specific [place] 1.011, Urine Protein NEGATIVE, Urine Glucose (UA) NEGATIVE, Urine Ketones NEGATIVE, Urine Blood NEGATIVE, Urine Nitrite POSITIVEH, Urine Bilirubin NEGATIVE, Urine Urobilinogen 0.2, Urine Leukocyte Esterase 3+H, Urine WBC (Auto) TNTCH, Urine RBC (Auto) 11H, Urine Hyaline Casts (Auto) 0, Urine Bacteria (Auto) 2+H, Urine Squamous Epithelial Cells 0, Urine Sperm (Auto) , Influenza Type A (RT-PCR) NEGATIVE, Influenza Type B (RT-PCR) NEGATIVE 05/17/19 01:00: Methicillin-Resist S.aureus DNA PCR NOT DETECTED 05/17/19 01:41: Blood Gas Bicarbonate Standard 24.9, Venous Blood pH 7.541H, Venous Blood Partial Pressure CO2 26.1L, Venous Blood Partial Pressure O2 86.9H, Venous Blood Total Carbon Dioxide 22.7L, Venous Blood HCO3 21.9L, Venous Blood Oxygen Saturation 97.7H, Venous Blood Base Excess 0.5 05/17/19 05:07: Nucleated Red Blood Cells % (auto) 0.0, Anion Gap 8, Glomerular Filtration Rate 50.3, Calcium Level 8.6L, Magnesium Level 1.6L CBC/BMP Laboratory Tests 05/16/19 20:56 05/17/19 05:07 Microbiology Microbiology 05/16/19 Urine Culture, Received Pending 05/16/19 Blood Culture, Received Pending NELSON GILBERT MD May 17, 2019 10:56
--- NOTE | 2019-05-17 11:54 | REP ---
Clinical: Dyspnea. Rule out pneumonia . Comparison: 05/16/2019 . Technique: PA and lateral. Findings: The mediastinum and cardiac silhouette are normal. The lung bull demonstrate mild chronic changes without acute consolidation, effusion, or pneumothorax. Subtle opacity in the right lung base on recent prior examination is not confirmed on current exam. Correlation with auscultation may be warranted. Impression: 1. No definite acute process appreciated. Electronically Signed by Nemesio Felder MD 05/17/2019 11:46 A
[2019-05-17 12:00] VITALS: BP 123/57
[2019-05-17 16:00] VITALS: BP 126/58
[2019-05-17] MEDS ORDERED: POTASSIUM CHLORIDE 10 MEQ SR TABLET PO SCH (18:00)
[2019-05-17] MEDS ORDERED: atenoloL 25 MG TAB PO SCH (18:00)
[2019-05-17] MEDS ORDERED: DONEPEZIL 5 MG TAB PO SCH (21:00)
[2019-05-17] MEDS: MAGNESIUM OXIDE 400 MG TAB (MAG-OX) PO SCH (21:33)
[2019-05-17 22:00] VITALS: BP 134/48
[2019-05-17] MEDS ORDERED: LevoFLOXacin IV 250 MG in IV 1 EA IV SCH (23:00)
[2019-05-18 06:00] VITALS: BP 114/98
[2019-05-18 06:47] LABS: BASO % 0.5 % (0.0-1.0); EOS # 0.4 10^3/uL (0.0-0.5); EOS % 5.6 % (0.0-3.0); HEMATOCRIT 34.1 % (36.0-47.0); HEMOGLOBIN 11.1 g/dl (12.0-15.5); LYMPH # 1.4 10^3/uL (1.5-5.0); LYMPH % 21.9 % (24.0-44.0); MEAN CORPUSCULAR HGB CONC 32.6 g/dl (32.0-36.5); MEAN CORPUSCULAR VOLUME 86.1 fl (80.0-96.0); MONO # 1.2 10^3/uL (0.0-0.8); NEUTROPHILS # 3.3 10^3/uL (1.5-8.5); NEUTROPHILS % 52.7 % (36.0-66.0); PLATELET COUNT, AUTOMATED 185 10^3/uL (150-450); RED BLOOD COUNT 3.96 10^6/uL (4.00-5.40); WHITE BLOOD COUNT 6.2 10^3/uL (4.0-10.0)
[2019-05-18 07:07] LABS: ALBUMIN 2.8 GM/DL (3.2-5.2); BILIRUBIN,TOTAL 0.3 MG/DL (0.2-1.0); CALCIUM LEVEL 8.9 MG/DL (8.8-10.2); CREATININE FOR GFR 1.03 MG/DL (0.55-1.30); GLOMERULAR FILTRATION RATE 53.7 (>32); TOTAL PROTEIN 6.5 GM/DL (6.4-8.2)
[2019-05-18] MEDS: DOCUSATE SODIUM 100 MG CAP PO SCH ×2 (09:00)
[2019-05-18] MEDS: MAGNESIUM OXIDE 400 MG TAB (MAG-OX) PO SCH (09:08)
[2019-05-18] MEDS: ASPIRIN 81 MG ENTERIC TAB PO SCH (09:08)
[2019-05-18] MEDS: SERTRALINE HCL 25 MG TABLET PO SCH (09:08)
[2019-05-18 09:09] VITALS: BP 114/98
[2019-05-18] MEDS: amLODIPine 5 MG TAB PO SCH (09:09)
[2019-05-18] MEDS: ENOXAPARIN 40 MG/0.4 ML SYRINGE (J1650) SC SCH (09:10)
[2019-05-18] MEDS ORDERED: LEVA1TAB2 PO (11:42)
--- NOTE | 2019-05-18 14:58 | DS.PDOC ---
Discharge Summary General Date of Admission May 16, 2019 at 23:38 Date of Discharge 05/18/19 Discharge Summary PROCEDURES PERFORMED DURING STAY: None. ADMITTING DIAGNOSES: 1. Pneumonia, UTI. DISCHARGE DIAGNOSES: 1. Pneumoniae UTI, dementia. COMPLICATIONS/CHIEF COMPLAINT: Pneumonia, Uti. HISTORY OF PRESENT ILLNESS: The patient has dementia the majority of the history was obtained from ER staff and the patient's family. This is an 88-year-old female is brought in by her family for evaluation of fevers with a temperature of 107, and rigors that started about 6:30 PM. The patient has dementia and it's difficult to tell if she is more confused than her baseline. The patient's family denied noticing cough or congestion.. HOSPITAL COURSE: Patient was admitted with the diagnosis of UTI and possible right lower lobe pneumonia. Patient was started on IV fluids and IV Levaquin. Patient responded to IV hydration and IV antibiotics very well. She isn't asymptomatic, afebrile at temperature 97.1, blood pressure 114/98, heart rate of 81. WBC count is 6.2. All cultures negative so far. She is asymptomatic, afebrile cleared by physical therapy for discharge and will be discharged home with family on by mouth antibiotics. Patient will follow up with her PCP in one week and will continue all her home medications.. DISCHARGE MEDICATIONS: Please see below. ALLERGIES: Please see below. PHYSICAL EXAMINATION ON DISCHARGE: VITAL SIGNS: Please see below. GENERAL: Within normal limits HEENT: PERRLA. Extraocular muscles intact NECK: Supple CARDIOVASCULAR EXAMINATION: S1, S2, regular RESPIRATORY EXAMINATION: Clear to A&P ABDOMINAL EXAMINATION: Benign EXTREMITIES: No clubbing, cyanosis, edema SKIN: Within normal limits NEUROLOGICAL EXAMINATION: . No focal motor sensory deficit PSYCHIATRIC EXAMINATION: Normal LABORATORY DATA: Please see below. IMAGING: X-ray consistent with right lower lobe pneumonia PROGNOSIS: good ACTIVITY: As tolerated. DIET: Regular DISCHARGE PLAN: Follow with PCP in one week DISPOSITION: . Home with family DISCHARGE INSTRUCTIONS: 1. As per discharge instructions. ITEMS TO FOLLOWUP ON ON OUTPATIENT: 1. Follow-up With PCP in one week. DISCHARGE CONDITION: Stable. TIME SPENT ON DISCHARGE: 35 minutes. Vital Signs/I&Os Vital Signs Date Time Temp Pulse Resp B/P (MAP) Pulse Ox O2 Delivery O2 Flow Rate FiO2 05/18/19 09:09 61 114/98 05/18/19 06:00 97.1 18 96 Room Air I&O- Last 24 Hours up to 6 AM 05/18/19 06:00 Intake Total 1250 ml Output Total 1225 ml Balance 25 ml Laboratory Data Labs 24H Laboratory Tests 2 05/18/19 06:26: Immature Granulocyte % (Auto) 0.3, Neutrophils (%) (Auto) 52.7, Lymphocytes (%) (Auto) 21.9L, Monocytes (%) (Auto) 19.0H, Eosinophils (%) (Auto) 5.6H, Basophils (%) (Auto) 0.5, Neutrophils # (Auto) 3.3, Lymphocytes # (Auto) 1.4L, Monocytes # (Auto) 1.2H, Eosinophils # (Auto) 0.4, Basophils # (Auto) 0.0, Nucleated Red Blood Cells % (auto) 0.0, Anion Gap 6L, Glomerular Filtration Rate 53.7, Calcium Level 8.9, Total Bilirubin 0.3, Aspartate Amino Transf (AST/SGOT) 25, Alanine Aminotransferase (ALT/SGPT) 21, Alkaline Phosphatase 72, Total Protein 6.5, Albumin 2.8L, Albumin/Globulin Ratio 0.76L CBC/BMP Laboratory Tests 05/18/19 06:26 Microbiology Microbiology 05/16/19 Urine Culture, Received Pending 05/16/19 Blood Culture - Preliminary, Resulted No growth after 24 hours . All specim... Discharge Medications Scheduled Amlodipine Besylate (Norvasc) 5 Mg Tablet, 5 MG PO DAILY, (Reported) Ascorbic Acid (Vitamin C) 500 Mg Tab, 500 MG PO DAILY, (Reported) Aspirin (Aspirin EC) 81 Mg Tablet.dr, 81 MG PO DAILY, (Reported) Atenolol (Atenolol) 25 Mg Tablet, 25 MG PO QPM, (Reported) @1700 Calcium Carbonate/Vitamin D3 (Calcium 600-Vit D3 400 Tablet) 1 Each Tablet, 2 TAB PO DAILY, (Reported) Cyanocobalamin (Vitamin B-12) (Vitamin B-12) 1,000 Mcg Tablet, 1,000 MCG PO DAILY, (Reported) Docusate Sodium (Docusate Sodium) 100 Mg Capsule, 100 MG PO DAILY, (Reported) Donepezil HCl (Aricept) 5 Mg Tablet, 5 MG PO QPM, (Reported) @1700 Levofloxacin (Levaquin) 500 Mg Tablet, 1 TAB PO DAILY Melatonin (Melatonin) 10 Mg Tablet, 10 MG PO QHS, (Reported) Mirtazapine (Remeron) 15 Mg Tablet, 15 MG PO QHS, (Reported) Multivitamin (Tab-A-Eliseo) 1 Tab Tab, 1 TAB PO DAILY, (Reported) Pantoprazole Sodium (Pantoprazole Sodium) 20 Mg Tablet.dr, 20 MG PO DAILY, (Reported) Potassium Chloride (Potassium Chloride) 10 Meq Cap, 20 MEQ PO QPM, (Reported) @1700 Sertraline Hcl (Sertraline HCl) 25 Mg Tablet, 25 MG PO DAILY, (Reported) Allergies Coded Allergies: TAPE (Verified Allergy, Intermediate, RASH, 05/13/18) Contrast Media (Verified Allergy, Unknown, IV DYE, 05/13/18) amoxicillin (Verified Allergy, Unknown, 06/30/18) bacitracin (Verified Allergy, Unknown, 06/30/18) bee venom protein (honey bee) (Verified Allergy, Unknown, 06/30/18) carisoprodol (Verified Allergy, Unknown, 06/30/18) cephalexin (Verified Allergy, Unknown, 06/30/18) clavulanic acid (Verified Allergy, Unknown, 06/30/18) codeine (Verified Allergy, Unknown, 06/30/18) meperidine (Verified Allergy, Unknown, 06/30/18) morphine (Verified Allergy, Unknown, 06/30/18) neomycin (Verified Allergy, Unknown, 06/30/18) pentazocine (Verified Allergy, Unknown, 06/30/18) polymyxin B (Verified Allergy, Unknown, 06/30/18) pregabalin (Verified Allergy, Unknown, 06/30/18) zolpidem (Verified Allergy, Unknown, 06/30/18) sleepwalking; causes falls NELSON GILBERT MD May 18, 2019 14:58
== END 2019-05-18 16:30 | disposition home or self-care (01) | DRG 194 ==
LOC: M ED 20:16 → M ED INP 23:38 → ENRESERV 05-17 00:04 → M ICU 05-17 01:30 → M MS5PR 05-17 18:45
PROVIDERS: ADMIT Internal Medicine; ATTEND Internal Medicine
DX: J18.9 Pneumonia, unspecified organism (principal); N39.0 Urinary tract infection, site not specified; F03.91 Unspecified dementia, unspecified severity, with behavioral disturbance; Z79.899 Other long term (current) drug therapy; Z79.82 Long term (current) use of aspirin; Z91.040 Latex allergy status; Z91.030 Bee allergy status; Z88.5 Allergy status to narcotic agent; I10 Essential (primary) hypertension; M81.0 Age-related osteoporosis without current pathological fracture; Z86.73 Personal history of transient ischemic attack (TIA), and cerebral infarction without residual deficits; Z96.651 Presence of right artificial knee joint; Z96.652 Presence of left artificial knee joint; E78.5 Hyperlipidemia, unspecified

== ENCOUNTER 2019-05-29 01:46 | Emergency (ER) | payer MEDICARE, MEDICAID ==
[~2019-05-29 01:46] MED LIST changes: +CYAN100050 PO; +RA M10TA PO; +REME15TA PO
[2019-05-29 02:38] LABS: BASO % 0.5 % (0.0-1.0); EOS # 0.1 10^3/uL (0.0-0.5); EOS % 1.2 % (0.0-3.0); HEMATOCRIT 39.5 % (36.0-47.0); HEMOGLOBIN 12.8 g/dl (12.0-15.5); LYMPH # 0.8 10^3/uL (1.5-5.0); LYMPH % 14.1 % (24.0-44.0); MEAN CORPUSCULAR HEMOGLOBIN 27.8 pg (27.0-33.0); MEAN CORPUSCULAR HGB CONC 32.4 g/dl (32.0-36.5); MEAN CORPUSCULAR VOLUME 85.7 fl (80.0-96.0); MONO # 0.7 10^3/uL (0.0-0.8); MONO % 11.9 % (0.0-5.0); NEUTROPHILS # 4.2 10^3/uL (1.5-8.5); NEUTROPHILS % 71.8 % (36.0-66.0); PLATELET COUNT, AUTOMATED 288 10^3/uL (150-450); RED BLOOD COUNT 4.61 10^6/uL (4.00-5.40); WHITE BLOOD COUNT 5.9 10^3/uL (4.0-10.0)
[2019-05-29 03:00] LABS: BLOOD UREA NITROGEN 11 MG/DL (7-18); CALCIUM LEVEL 9.2 MG/DL (8.8-10.2); CARBON DIOXIDE LEVEL 28 MEQ/L (21-32); CHLORIDE LEVEL 110 MEQ/L (98-107); CREATININE FOR GFR 0.85 MG/DL (0.55-1.30); GLOMERULAR FILTRATION RATE > 60.0 (>32); GLUCOSE, FASTING 90 MG/DL (70-100); POTASSIUM SERUM 4.2 MEQ/L (3.5-5.1); SODIUM LEVEL 143 MEQ/L (136-145)
[2019-05-29] MEDS ORDERED: EQ M PV (03:44)
[2019-05-29] MEDS ORDERED: MICONAZOLE-7 VAGINAL 2% CREAM 47.7 GM PV ONE (03:45)
[2019-05-29 04:22] VITALS: BP 158/89
== END 2019-05-29 04:22 | disposition home or self-care (01) ==
LOC: M ED 01:46
DX: R30.0 Dysuria (principal); F03.90 Unspecified dementia, unspecified severity, without behavioral disturbance, psychotic disturbance, mood disturbance, and anxiety; I10 Essential (primary) hypertension; J45.909 Unspecified asthma, uncomplicated; K21.9 Gastro-esophageal reflux disease without esophagitis; E11.9 Type 2 diabetes mellitus without complications; F41.9 Anxiety disorder, unspecified; F32.9 Major depressive disorder, single episode, unspecified; Z88.1 Allergy status to other antibiotic agents; Z88.5 Allergy status to narcotic agent; Z88.8 Allergy status to other drugs, medicaments and biological substances; Z91.030 Bee allergy status; Z91.09 Other allergy status, other than to drugs and biological substances; Z79.82 Long term (current) use of aspirin; Z79.899 Other long term (current) drug therapy

== ENCOUNTER → 2019-06-09 | Outpatient (CLI) | payer MEDICARE, MEDICAID ==
[~2019-06-09] MED LIST changes: +EQ M PV
--- NOTE | 2019-06-09 17:09 | REP ---
Chest x-ray: Two views. History: Follow up right lower lobe pneumonia. Comparison chest x-ray May 17, 2019. More remote prior comparison studies include July 22, 2018 and May 13, 2018. Findings: There is an old healed rib fracture noted on the left. The patient is rotated somewhat to the left for the current frontal exposure. There are chronically and mildly increased interstitial markings in the bases, right a little more so than left. No acute infiltrate is seen. Heart is not enlarged. The aorta is tortuous and calcific. There are degenerative changes in the thoracic spine. Impression: Mild bibasilar interstitial fibrosis. No acute infiltrate seen. Electronically Signed by Henry Quinonez MD 06/09/2019 08:11 P
== END ==
LOC: M RAD 12:39
PROVIDERS: ATTEND Nurse Practitioner Family
DX: J84.10 Pulmonary fibrosis, unspecified (principal)

== ENCOUNTER → 2019-06-24 | Outpatient (REF) | payer MEDICARE, MEDICAID | LOC: M LAB REF 16:53 | PROVIDERS: ATTEND Nurse Practitioner Family | DX: N39.0 Urinary tract infection, site not specified (principal) ==